=== PATIENT | male | born 1945 | race Caucasian/White ===

== ENCOUNTER 2024-10-09 14:21 | Inpatient (IN) | payer MEDICARE, BC, SELFPAY ==
[2024-10-09] VITALS (23 sets, daily range): BP systolic 98–128; BP diastolic 76–102; PULSE 128–162; RESP 20–33; TEMP 36.4–36.8; O2SAT 94–99; BMI 27.7
--- NOTE | ~2024-10-09 | US_ITS ---
BILATERAL LOWER EXTREMITY VENOUS ULTRASOUND Ordering provider: Torie Salazar PA-C History: . edema . Comparison: None. FINDINGS: RIGHT LOWER EXTREMITY VEINS: --COMMON FEMORAL: Patent and free of thrombus. Normal compressibility, phasic flow and augmentation. --PROXIMAL SUPERFICIAL FEMORAL: Patent and free of thrombus. Normal compressibility, phasic flow and augmentation. --DISTAL SUPERFICIAL FEMORAL: Patent and free of thrombus. Normal compressibility, phasic flow and au gmentation. --POPLITEAL: Patent and free of thrombus. Normal compressibility, phasic flow and augmentation. --POSTERIOR TIBIAL: Patent and free of thrombus. Normal compressibility, phasic flow and augmentation . --Gastrocnemius vein: Thrombosed LEFT LOWER EXTREMITY VEINS: --COMMON FEMORAL: Patent and free of thrombus. Normal compressibility, phasic flow and augmentation. --PROXIMAL SUPERFICIAL FEMORAL: Patent and free of thrombus. Normal compressibility, phasic flow and augmentation. --DISTAL SUPERFICIAL FEMORAL: Patent and free of thrombus. Normal compressibility, phasic flow and au gmentation. --POPLITEAL: Patent and free of thrombus. Normal compressibility, phasic flow and augmentation. --POSTERIOR TIBIAL: Patent and free of thrombus. Normal compressibility, phasic flow and augmentation . IMPRESSION: Thrombosis in the right gastrocnemius vein. Other appearances are unremarkable. Reviewed, dictated and finalized at location A.
--- NOTE | ~2024-10-09 | XR_ITS ---
XR chest 2V Ordering provider: Torie Salazar PA-C History: 79 years Male with . CP . Comparison: None. FINDINGS: MEDIASTINUM: The cardiac silhouette is slightly enlarged. Congestive abundio. LUNGS: No infiltrates, effusions or pneumothorax. OTHER: No free air under the diaphragm. Degenerative changes of the spine. IMPRESSION: No acute cardiopulmonary pathology. Reviewed, dictated and finalized at location A.
--- NOTE | 2024-10-09 14:24 | ECG_ITS ---
Test Date: 2024-10-09 14:28:38 Measurements Intervals [place] Rate: 148 P: 0 DC: 0 QRS: 112 QRSD: 89 T: 86 QT: 272 QTc: 427 Interpretive Statements ATRIAL FIBRILLATION WITH RAPID VENTRICULAR RESPONSE POSSIBLE RIGHT VENTRICULAR HYPERTROPHY [SOME/ALL OF: PROMINENT R IN V1, LATE TRANSITION, RAD, WES, SSS] ABNORMAL ECG No previous ECG available for comparison Electronically Signed On 10-09-2024 16:15:31 CDT by Luigi Birmingham M.D.
--- NOTE | 2024-10-09 14:41 | ED.ARRPALP ---
HPI - Arrhythmia/Palpitations General Chief Complaint: Arrhythmia/Palpitations <Torie Salazar PA-C - Last Filed: 10/09/24 19:41> Stated Complaint: afib <DELMA Lui Last Filed: 10/09/24 19:41> Time Seen by Provider: 10/09/24 14:24 <DELMA Lui Last Filed: 10/09/24 19:41> Source: patient <DELMA Lui Last Filed: 10/09/24 19:41> Mode of arrival: EMS <DELMA Lui Last Filed: 10/09/24 19:41> Limitations: no limitations <DELMA Lui Last Filed: 10/09/24 19:41> History of Present Illness HPI narrative: This is a 79-year-old male that presents to the emergency department for chest pain and shortness of breath. Ongoing over the last 5 days. Reports he recently traveled from [place] where he lives. He has been in the area for about a week. Finally decided to call EMS to be brought in for evaluation today. He was noted to be in Afib with RVR. No previous history of this. <DELMA Lui Last Filed: 10/09/24 19:41> Related Data Home Medications: Home Medications ?Medication ?Instructions ?Recorded ?Confirmed ?Last Taken ?Type aspirin 81 mg chewable tablet 81 mg PO DAILY 10/09/24 10/09/24 Unknown History (Keegan Chewable Low Dose Aspirin) <Torie Salazar PA-C - Last Filed: 10/09/24 19:41> Allergies/Adverse Reactions: Allergies Allergy/AdvReac Type Severity Reaction Status Date / Time No Known Allergies Allergy Verified 10/09/24 14:47 <DELMA Lui Last Filed: 10/09/24 19:41> Review of Systems Review of Systems: CONSTITUTIONAL: Denies fever CARDIOVASCULAR: Reports chest pain, palpitations, and edema. RESPIRATORY: Reports dyspnea. <DELMA Lui Last Filed: 10/09/24 19:41> All systems reviewed & are unremarkable except as noted in HPI and below <Torie Salazar PA-C - Last Filed: 10/09/24 19:41> PMFSH Past Medical History Medical History: Medical History (Updated 10/09/24 @ 19:41 by Torie Salazar PA-C) History of skin cancer <Torie Salazar PA-C - Last Filed: 10/09/24 19:41> Exam Narrative: GENERAL: Elderly, well-nourished, and in no acute distress. HEAD: Normocephalic, atraumatic. EYES: EOMI. ENT: Nares clear, no rhinorrhea or epistaxis. Mucous membranes moist. Oropharynx without tonsillar hypertrophy exudate or other lesions. NECK: Supple. No adenopathy or masses. CHEST: No respiratory distress. Rales in the bilateral lower lobes. No wheezes or rhonchi HEART: Irregularly irregular. No murmur heard. Normal peripheral pulses. EXTREMITIES: Normal range of motion. 1+ pitting edema to the bilateral lower extremities SKIN: Warm, dry, no rash. NEURO: No focal deficits. Alert and oriented x3. PSYCH: Normal mood and affect <Torie Salazar PA-C - Last Filed: 10/09/24 19:41> Course Course Emergency Course: patient updated on his workup and need for admission <Torie Salazar PA-C - Last Filed: 10/09/24 19:41> PALEOLOGIST/PA Physician Supervision This visit was performed by both a physician and an APC. I performed all aspects of the MDM as documented. <Onofre Pitts MD - Last Filed: 10/09/24 19:24> Consultations Consultation #1: Spoke with hospitalist about patient and workup who accepts admission <Torie Salazar PA-C - Last Filed: 10/09/24 19:41> Date: 10/09/24 <Torie Salazar PA-C - Last Filed: 10/09/24 19:41> Consultation #2: Spoke with cardiology who will consult <Torie Salazar PA-C - Last Filed: 10/09/24 19:41> Date: 10/09/24 <Torie Salazar PA-C - Last Filed: 10/09/24 19:41> Vital Signs Vital signs: Vital Signs Pulse Rate 145 H 10/09/24 14:31 Respiratory Rate 32 H 10/09/24 14:31 Blood Pressure 106/87 10/09/24 14:31 Pulse Oximetry 97 10/09/24 14:31 Temperature 97.6 F 10/09/24 19:04 Pulse Rate 140 H 10/09/24 19:04 Respiratory Rate 22 H 10/09/24 19:04 Blood Pressure 128/92 H 10/09/24 19:04 Pulse Oximetry 98 10/09/24 19:04 <Torie Salazar PA-C - Last Filed: 10/09/24 19:41> Vital Signs Pulse Rate 145 H 10/09/24 14:31 Respiratory Rate 32 H 10/09/24 14:31 Blood Pressure 106/87 10/09/24 14:31 Pulse Oximetry 97 10/09/24 14:31 Temperature 97.6 F 10/09/24 19:04 Pulse Rate 140 H 10/09/24 19:04 Respiratory Rate 22 H 10/09/24 19:04 Blood Pressure 128/92 H 10/09/24 19:04 Pulse Oximetry 98 10/09/24 19:04 <Onofre Pitts MD - Last Filed: 10/09/24 19:24> MDM - Arrhythmia/Palpitations MDM Narrative Medical decision making narrative: Patient presents to the ER for chest pain, shortness of breath ongoing over the last 5 days. Noted to be in afib with RVR. No previous history of this. Rates initially in the 170s. He was given a dose of adenosine for possible SVT by EMS. It was then noted that patient was in AFib. They did give him 5 mg of Lopressor. Patient persistently AFib with RVR. Given bolus of diltiazem and started on a drip. Rates now in largely the 130s to 140s. Cbc without leukocytosis. Metabolic panel with normal appearing kidney function. Liver enzymes are mildly elevated. BNP elevated at 4080. Pitting lower extremity edema noted is well as rales in the lungs. Given a dose of Lasix in the ED. Baseline troponin is not elevated. Chest x-ray without acute cardiopulmonary abnormality. Bilateral lower extremity venous Doppler shows DVT in the right gastrocnemius. Patient given a dose of Lovenox. Will be admitted for further management. He refused CTA of the chest to rule out PE as he is very claustrophobic. I had a long discussion with him about this and he continued to adamantly refuse. I have ordered a V/Q scan. Spoke with hospitalist about patient and workup who accepts admission. Spoke with cardiology who will consult <Torie Salazar PA-C - Last Filed: 10/09/24 19:41> Differential Diagnosis Differential diagnosis: Likely artial fibrillation, supraventricular tachycardia and other (PE, DVT, heart failure) <Torie Salazar PA-C - Last Filed: 10/09/24 19:41> Lab Data Attestation: I reviewed the patient's lab results. <Torie Salazar PA-C - Last Filed: 10/09/24 19:41> Result diagrams: 10/09/24 14:39 10/09/24 14:39 <Torie Salazar PA-C - Last Filed: 10/09/24 19:41> Labs: Lab Results 10/09/24 Range/Units 14:39 WBC 10.0 (4.5-10.0) K/mm3 RBC 4.51 L (4.6-6.20) M/mm3 Hgb 12.9 L (14.0-18.0) g/dL Hct 42.5 (42.0-52.0) % MCV 94.2 (80-100) fl MCH 28.6 (26-34) pg MCHC 30.4 L (32-36) g/dl RDW 14.6 H (11.5-14.5) % Plt Count 341 (150-375) k/mm3 MPV 10.2 (7.4-10.4) fl Immature Gran % (Auto) 0.3 (0-0.5) % Neut % (Auto) 65.6 (45.5-73.1) % Lymph % (Auto) 22.0 (18.3-44.2) % [place] % (Auto) 9.7 H (2.6-8.5) % Eos % (Auto) 1.5 (0-4.4) % Baso % (Auto) 0.9 (0.2-1.2) % Lymph # (Auto) 2.19 (0.9-3.2) K/mm3 [place] # (Auto) 1.0 H (0.1-0.6) K/mm3 Eos # (Auto) 0.2 (0-0.3) K/mm3 Baso # (Auto) 0.1 (0.0-0.1) K/mm3 Abs Immat Gran (auto) 0.03 (0.00-0.031) K/mm3 Absolute Neuts (auto) 6.5 (1.3-6.7) K/mm3 Absolute Nucleated RBC 0.000 (0.0-0.012) K/mm3 Nucleated RBC % 0.0 (0.0-0.2) % PT 16.7 H (11.1-14.7) Seconds INR 1.3 APTT 30.7 (22.3-36.8) Seconds D-Dimer 2.44 H (<0.48) ug/mL Sodium 138 (137-145) mmol/L Potassium 4.6 (3.4-5.0) mmol/L Chloride 104 (98-107) mmol/L Carbon Dioxide 24 (22-30) mmol/L Anion Gap 10 (4-12) mmol/L BUN 40 H (9-20) mg/dL Creatinine 1.24 (0.7-1.3) mg/dL Estim Creat Clear Calc 52 ml/min Estimated GFR 57 L (59 - ) Glucose 125 H (65-110) mg/dL Calcium 9.2 (8.4-10.2) mg/dL Total Bilirubin 1.1 (0.2-1.3) mg/dL AST 103 H (17-59) U/L ALT 103 H (6-50) U/L Alkaline Phosphatase 136 H (38-126) U/L Troponin I 0.025 (0.000-0.034) ng/mL NT-Pro-B Natriuret Pep 4080 H (19.9-100) pg/mL Total Protein 7.0 (6.3-8.2) g/dL Albumin 4.0 (3.5-5.1) g/dL Lipase 71 (23-300) U/L <Torie Salazar PA-C - Last Filed: 10/09/24 19:41> Lab Results 10/09/24 Range/Units 14:39 WBC 10.0 (4.5-10.0) K/mm3 RBC 4.51 L (4.6-6.20) M/mm3 Hgb 12.9 L (14.0-18.0) g/dL Hct 42.5 (42.0-52.0) % MCV 94.2 (80-100) fl MCH 28.6 (26-34) pg MCHC 30.4 L (32-36) g/dl RDW 14.6 H (11.5-14.5) % Plt Count 341 (150-375) k/mm3 MPV 10.2 (7.4-10.4) fl Immature Gran % (Auto) 0.3 (0-0.5) % Neut % (Auto) 65.6 (45.5-73.1) % Lymph % (Auto) 22.0 (18.3-44.2) % [place] % (Auto) 9.7 H (2.6-8.5) % Eos % (Auto) 1.5 (0-4.4) % Baso % (Auto) 0.9 (0.2-1.2) % Lymph # (Auto) 2.19 (0.9-3.2) K/mm3 [place] # (Auto) 1.0 H (0.1-0.6) K/mm3 Eos # (Auto) 0.2 (0-0.3) K/mm3 Baso # (Auto) 0.1 (0.0-0.1) K/mm3 Abs Immat Gran (auto) 0.03 (0.00-0.031) K/mm3 Absolute Neuts (auto) 6.5 (1.3-6.7) K/mm3 Absolute Nucleated RBC 0.000 (0.0-0.012) K/mm3 Nucleated RBC % 0.0 (0.0-0.2) % PT 16.7 H (11.1-14.7) Seconds INR 1.3 APTT 30.7 (22.3-36.8) Seconds D-Dimer 2.44 H (<0.48) ug/mL Sodium 138 (137-145) mmol/L Potassium 4.6 (3.4-5.0) mmol/L Chloride 104 (98-107) mmol/L Carbon Dioxide 24 (22-30) mmol/L Anion Gap 10 (4-12) mmol/L BUN 40 H (9-20) mg/dL Creatinine 1.24 (0.7-1.3) mg/dL Estim Creat Clear Calc 52 ml/min Estimated GFR 57 L (59 - ) Glucose 125 H (65-110) mg/dL Calcium 9.2 (8.4-10.2) mg/dL Total Bilirubin 1.1 (0.2-1.3) mg/dL AST 103 H (17-59) U/L ALT 103 H (6-50) U/L Alkaline Phosphatase 136 H (38-126) U/L Troponin I 0.025 (0.000-0.034) ng/mL NT-Pro-B Natriuret Pep 4080 H (19.9-100) pg/mL Total Protein 7.0 (6.3-8.2) g/dL Albumin 4.0 (3.5-5.1) g/dL Lipase 71 (23-300) U/L <Onofre Pitts MD - Last Filed: 10/09/24 19:24> Imaging Data Radiologist's impression: ITS Impressions Chest X-Ray 10/09/24 15:08 IMPRESSION: No acute cardiopulmonary pathology. Venous Doppler Study 10/09/24 15:49 IMPRESSION: Thrombosis in the right gastrocnemius vein. Other appearances are unremarkable. <Torie Salazar PA-C - Last Filed: 10/09/24 19:41> Critical Care Time Critical Care Time Critical Care Time: Yes <Torie Salazar PA-C - Last Filed: 10/09/24 19:41> Total Critical Care Time: 35 <Torie Salazar PA-C - Last Filed: 10/09/24 19:41> Discharge Plan Discharge Clinical Impression: Atrial fibrillation with RVR, Transaminitis Deep vein thrombosis (DVT) of right lower extremity Qualifiers: Affected thrombotic vein of extremity: calf muscle vein Chronicity: acute Qualified Code(s): I82.461 - Acute embolism and thrombosis of right calf muscular vein <DELMA Lui Last Filed: 10/09/24 19:41> Patient Disposition: Still a Patient <DELMA Lui Last Filed: 10/09/24 19:41> Condition: Serious <Torie Salazar PA-C - Last Filed: 10/09/24 19:41>
[2024-10-09 14:47] LABS: Basophils Absolute Auto 0.1 K/mm3 (0.0-0.1); Basophils Percent Auto 0.9 % (0.2-1.2); Eosinophils Absolute Auto 0.2 K/mm3 (0-0.3); Eosinophils Percent Auto 1.5 % (0-4.4); Hematocrit 42.5 % (42.0-52.0); Hemoglobin 12.9 g/dL (14.0-18.0); Immature Granulocyte Absolute 0.03 K/mm3 (0.00-0.031); Immature Granulocyte Percent A 0.3 % (0-0.5); Lymphocytes Absolute Auto 2.19 K/mm3 (0.9-3.2); Mean Corpuscular HGB Conc 30.4 g/dl (32-36); Mean Corpuscular Hemoglobin 28.6 pg (26-34); Mean Corpuscular Volume 94.2 fl (80-100); Mean Platelet Volume 10.2 fl (7.4-10.4); Monocytes Percent Auto 9.7 % (2.6-8.5); Neutrophils Absolute Auto 6.5 K/mm3 (1.3-6.7); Neutrophils Percent Auto 65.6 % (45.5-73.1); Platelet Count Result 341 k/mm3 (150-375); Red Blood Count 4.51 M/mm3 (4.6-6.20); Red Cell Distribution Width 14.6 % (11.5-14.5)
--- OUTSIDE RECORDS SUMMARY | 2024-10-09 14:53 | XMS_ITS | Data Portability ---
Author Organization [place] - [facility], Main Office Address [address] [place] [id number] Care Team Providers Care Taste Tester Name Role Phone WHITLOCK, VINI Primary Care Provider MARIA DE JESUS GREY Metropolitan Editor Assessment No assessment recorded. Plan of Treatment Reminders Order Date Submit Date Provider Last Modified By Organization Details Last Modified Time Details Appointments None recorded. Lab culture, blood - Site #2 2021 [email or web address] [facility] ([place]), [address] [place], [address], 3 12:39:53 cortisol, am, serum 2021 022 DIPAK [facility] ([place]), [address] [place], [address], 2 08:16:51 acth, plasma 2021 022 DIPAK [facility] ([place]), [address] [place], [address], 2 08:18:35 CBC w/ auto diff 2021 022 DIPAK [facility] ([place]), [address] [place], [address], 2 08:16:49 unlisted lab - CMP14+Hb A1C 2021 DIPAK [facility] ([place]), [address] [place], [address], 2 08:16:49 TSH + free T4, serum 2021 022 DIPAK [facility] ([place]), [address] [place], [address], 08:16:48 T3, free, serum or plasma 2021 DIPAK [facility] ([place]), [address] [place], [address], 08:16:50 vitamin D, 25-hydrox y, total, serum 2021 DIPAK [facility] ([place]), [address] [place], [address], 08:16:50 unlisted lab - TSH reflex to t4f 2021 [facility] [address] [place], [address], 14:10:08 vitamin D, 25-hydrox y, total, serum 2021 [facility] ([place]), [address] [place], [address], 14:10:07 CBC w/ auto diff 2021 [facility] [address] [place], [address], 14:10:07 unlisted lab - CMP14+LP+ Hb [id number] 8-P 2021 [place] ([place]), [address] [place], [address], 14:10:06 Referral pulmonolo gist referral 2021 [facility], [address], [address], [place], [address], 14:22:46 cardiolog ist referral 2021 Ferdinand Mcmanus MD, [address], [address], [place], [address], 20:03:38 cardiolog ist referral 2021 [email or web address] Not available 10:48:09 dermatolo gist referral 2021 [email or web address] [facility], [address], [address], [place], [address], 10:48:13 Procedures None recorded. Surgeries None recorded. Imaging electroca rdiogram [address], [address] [place] [address], [address], [place], [address], 11:54:49 LDCT, chest, for lung cancer screening 2021 Not available 11:32:37 Medication Orders trazodone 100 mg tablet 2021 [id number], [address] [place], [address], 14:10:42 alprazola m 0.5 mg tablet 2021 [id number], [address] [place], [address], 14:10:43 Vitamin D3 125 mcg (5,000 unit) tablet 2021 [email or web address] Not available 13:46:35 ibuprofen 800 mg tablet 2021 [facility], [address] [place], [address], 14:10:41 ipratropi um 0.5 mg-albute rol 3 mg (2.5 mg base)/3 mL nebulizat ion soln 2021 [facility], [address] [place], [address], 14:10:42 Lasix 20 mg tablet 2021 [facility], [address] [place], [address], 14:10:41 Xanax 0.25 mg tablet 2021 [facility], [address] [place], [address], 15:56:17 Fioricet 50 mg-300 mg-40 mg capsule 2021 022 [email or web address] [facility], [address] [place], [address], 13:39:35 fluticaso ne 250 mcg-salme terol 50 mcg/dose blistr powdr for inhalatio n 2021 [facility], [address] [place], [address], 13:05:16 cholecalc iferol (vitamin D3) 50 mcg (2,000 unit) tablet 2021 022 [email or web address] Not available 13:46:49 Anoro Ellipta 62.5 mcg-25 mcg/actua tion powder for inhalatio n 2021 [facility], [address] [place] [address], [place], [address], 12:30:52 Anoro Ellipta 62.5 mcg-25 mcg/actua tion powder for inhalatio n 2021 022 [email or web address] [facility]acy #5792, [address] [place], [address], 12:23:05 ProAir HFA 90 mcg/actua tion aerosol inhaler 2021 [facility]792, [address] [place], [address], 23:40:29 Patient TargetsNo targets recorded. Patient Instructions Encounter Date Encounter Id Patient Instructions Last Modified By Organization Details Last Modified Time 09/06/2021 [id number] smoking cessatio n counseling, greater than 3 minutes up to 10 minutes* [email or web address] Not available 09/06/2021 23:58:15 spirometry testing* [email or web address] Not available 09/06/2021 18:48:58 Reason for Referral Metropolitan Editor Referral for Dy spnea on exertion Referring Physician: Family Mariola Le, Encounter Date: 09/06/2021 Bow Maker Machine Tender Referral for S kin lesion Referring Physician: Family Mariola Le, Encounter Date: 09/06/2021 Metropolitan Editor Referral for Dy spnea on exertion Referring Physician: Family Mariola Le, Encounter Date: 09/21/2021 Ski Maker Referral for C hronic obstructive pulmonary disease Referring Physician: Family Mariola Le, Encounter Date: 02/01/2022 Results Created Date Observation Date Name Description Value Unit Range Abnormal Flag Note LastModifiedBy Organization Detail LastModifiedTime 09/07/1909/06/2021 ochoa metry testi ng* FVC 2.23 Not Available [address], [place], [address], 09/06/2021 17:56:48 09/07/19 22 09/06/2021 ochoa metry testi ng* % Predicted FVC 50 Not Available [address], [place], [address], 09/06/2021 17:56:48 09/07/19 22 09/06/2021 ochoa metry testi ng* FEV1 1.46 Not Available [address], [place], [address], 09/06/2021 17:56:48 09/07/19 22 09/06/2021 ochoa metry testi ng* % Predicted FEV1 45 Not Available [address], [place], [address], 09/06/2021 17:56:48 09/07/19 22 09/06/2021 ochoa metry testi ng* FEV1/FVC Ratio 65.5 Not Available [address], [place], [address], 09/06/2021 17:56:48 09/07/19 22 09/06/2021 ochoa metry testi ng* FEF 25-75 0.93 Not Available [address], [place], [address], 09/06/2021 17:56:48 09/07/19 22 09/06/2021 ochoa metry testi ng* % Predicted FEF 25-75 39 Not Available [address], [place], [address], 09/06/2021 17:56:48 09/08/19 22 09/08/2021 CMP14 +LP+H B A1C glucose 95 mg/dL 65-99 Not Available [facility] ([facility]) [address] [place], [address], 09/08/2021 14:10:06 09/08/19 22 09/08/2021 CMP14 +LP+H B A1C hemoglobin A1C 5.5 % 4.8-5. 6 Predi abete s: 5.7 - 6.4 Diabe pascale: >6.4 Glyce katheryn contr ol for adult s with diabe pascale: <7.0 Not Available [facility] ([facility]) [address] [place], [address], 09/08/2021 14:10:06 09/08/19 22 09/08/2021 CMP14 +LP+H B A1C BUN 24 mg/dL 8-27 Not Available [facility] ([facility]) [address] [place], [address], 09/08/2021 14:10:06 09/08/19 22 09/08/2021 CMP14 +LP+H B A1C creatinine 1.00 mg/dL 0.76-1 .27 Not Available [facility] ([facility]) [address] [place], [address], 09/08/2021 14:10:06 09/08/19 22 09/08/2021 CMP14 +LP+H B A1C eGFR 79 mL/mi n/1.7 3 >59 Not Available [facility] ([facility]) [address] [place], [address], 09/08/2021 14:10:06 09/08/19 22 09/08/2021 CMP14 +LP+H B A1C BUN/creatini ne ratio 24 10-24 Not Available [facility] ([facility]) [address] [place], [address], 09/08/2021 14:10:06 09/08/19 22 09/08/2021 CMP14 +LP+H B A1C sodium 145 mmol/ L 134-14 4 above high normal Not Available [facility] ([facility]) [address] [facility], [place], [address], 09/08/2021 14:10:06 09/08/19 22 09/08/2021 CMP14 +LP+H B A1C potassium 4.9 mmol/ L 3.5-5. 2 Not Available [facility] ([facility]) [address] [place], [address], 09/08/2021 14:10:06 09/08/19 22 09/08/2021 CMP14 +LP+H B A1C chloride 104 mmol/ L 96-106 Not Available [facility] ([facility]) [address] [place], [address], 09/08/2021 14:10:06 09/08/19 22 09/08/2021 CMP14 +LP+H B A1C carbon dioxide, total 26 mmol/ L 20-29 Not Available [facility] ([facility]) [address] [place], [address], 09/08/2021 14:10:06 09/08/19 22 09/08/2021 CMP14 +LP+H B A1C calcium 10.2 mg/dL 8.6-10 .2 Not Available [facility] ([facility]) [address] [place], [address], 09/08/2021 14:10:06 09/08/19 22 09/08/2021 CMP14 +LP+H B A1C protein, total 7.5 g/dL 6.0-8. 5 Not Available [facility] ([facility]) [address] [place], [address], 09/08/2021 14:10:06 09/08/19 22 09/08/2021 CMP14 +LP+H B A1C albumin 4.6 g/dL 3.7-4. 7 Not Available [facility] ([facility]) [address] [place], [address], 09/08/2021 14:10:06 09/08/19 22 09/08/2021 CMP14 +LP+H B A1C globulin, total 2.9 g/dL 1.5-4. 5 Not Available [facility] ([facility]) [address] [place], [address], 09/08/2021 14:10:06 09/08/19 22 09/08/2021 CMP14 +LP+H B A1C A/G ratio 1.6 1.2-2. 2 Not Available [facility] ([facility]) [address] [place], [address], 09/08/2021 14:10:06 09/08/19 22 09/08/2021 CMP14 +LP+H B A1C bilirubin, total 0.5 mg/dL 0.0-1. 2 Not Available [facility] ([facility]) [address] [place], [address], 09/08/2021 14:10:06 09/08/19 22 09/08/2021 CMP14 +LP+H B A1C alkaline phosphatase 97 IU/L 44-121 Not Available [facility]) [address] [place], [address], 09/08/2021 14:10:06 09/08/19 22 09/08/2021 CMP14 +LP+H B A1C AST (SGOT) 22 IU/L 0-40 Not Available [facility] ([facility]) [address] [place], [address], 09/08/2021 14:10:06 09/08/19 22 09/08/2021 CMP14 +LP+H B A1C ALT (SGPT) 17 IU/L 0-44 Not Available [facility] ([facility]) [address] [facility], [place], [address], 09/08/2021 14:10:06 09/08/19 22 09/08/2021 CMP14 +LP+H B A1C cholesterol, total 190 mg/dL 100-19 9 Not Available [facility] ([facility]) [address] [facility], [place], [address], 09/08/2021 14:10:06 09/08/19 22 09/08/2021 CMP14 +LP+H B A1C triglyceride s 87 mg/dL 0-149 Not Available [facility]) [address] [facility], [place], [address], 09/08/2021 14:10:06 09/08/19 22 09/08/2021 CMP14 +LP+H B A1C HDL cholesterol 49 mg/dL >39 Not Available [facility]) [address] [facility], [place], [address], 09/08/2021 14:10:06 09/08/19 22 09/08/2021 CMP14 +LP+H B A1C VLDL cholesterol aimee 16 mg/dL 5-40 Not Available [facility]) [address] [facility], [place], [address], 09/08/2021 14:10:06 09/08/19 22 09/08/2021 CMP14 +LP+H B A1C LDL chol calc ([facility]) 125 mg/dL 0-99 above high normal Not Available [facility] ([facility]) [address] [place], [address], 09/08/2021 14:10:06 09/08/19 22 09/08/2021 CMP14 +LP+H B A1C comment: FLY FISHING GUIDE Not Available [facility] ([facility]) [address] [facility], [place], [address], 09/08/2021 14:10:06 09/08/19 22 09/08/2021 CBC WITH DIFFE RENTI AL/PL ATELE T WBC 8.2 x10e3 /uL 3.4-10 .8 Not Available [facility] ([facility]) [address] [facility], [place], [address], 09/08/2021 14:10:07 09/08/19 22 09/08/2021 CBC WITH DIFFE RENTI AL/PL ATELE T RBC 4.84 x10e6 /uL 4.14-5 .80 Not Available [facility] ([facility]) [address] [facility], [place], [address], 09/08/2021 14:10:07 09/08/19 22 09/08/2021 CBC WITH DIFFE RENTI AL/PL ATELE T hemoglobin 14.9 g/dL 13.0-1 7.7 Not Available [facility] ([facility]) [address] [facility], [place], [address], 09/08/2021 14:10:07 09/08/19 22 09/08/2021 CBC WITH DIFFE RENTI AL/PL ATELE T hematocrit 43.7 % 37.5-5 1.0 Not Available [facility] ([facility]) [address] [facility], [place], [address], 09/08/2021 14:10:07 09/08/19 22 09/08/2021 CBC WITH DIFFE RENTI AL/PL ATELE T MCV 90 fL 79-97 Not Available [facility] ([facility]) [address] [place], [address], 09/08/2021 14:10:07 09/08/19 22 09/08/2021 CBC WITH DIFFE RENTI AL/PL ATELE T MCH 30.8 pg 26.6-3 3.0 Not Available [facility] ([facility]) [address] [place], [address], 09/08/2021 14:10:07 09/08/19 09/08/2021 CBC WITH DIFFE RENTI AL/PL ATELE T MCHC 34.1 g/dL 31.5-3 5.7 Not Available [facility] ([facility]) [address] [facility], [place], [address], 09/08/2021 14:10:07 09/08/19 22 09/08/2021 CBC WITH DIFFE RENTI AL/PL ATELE T RDW 14.0 % 11.6-1 5.4 Not Available [facility] ([facility]) [address] [facility], [place], [address], 09/08/2021 14:10:07 09/08/19 22 09/08/2021 CBC WITH DIFFE RENTI AL/PL ATELE T platelets 269 x10e3 /uL 150-45 0 Not Available [facility] ([facility]) [address] [facility], [place], [address], 09/08/2021 14:10:07 09/08/19 22 09/08/2021 CBC WITH DIFFE RENTI AL/PL ATELE T neutrophils 51 % not estab. Not Available [facility] ([facility]) [address] [facility], [place], [address], 09/08/2021 14:10:07 09/08/19 22 09/08/2021 CBC WITH DIFFE RENTI AL/PL ATELE T lymphs 30 % not estab. Not Available [facility] ([facility]) [address] [facility], [place], [address], 09/08/2021 14:10:07 09/08/19 22 09/08/2021 CBC WITH DIFFE RENTI AL/PL ATELE T monocytes 8 % not estab. Not Available [facility] ([facility]) [address] [facility], [place], [address], 09/08/2021 14:10:07 09/08/19 22 09/08/2021 CBC WITH DIFFE RENTI AL/PL ATELE T eos 10 % not estab. Not Available [facility] ([facility]) [address] [facility], [place], [address], 09/08/2021 14:10:07 09/08/19 22 09/08/2021 CBC WITH DIFFE RENTI AL/PL ATELE T basos 1 % not estab. Not Available [facility] ([facility]) [address] [facility], [place], [address], 09/08/2021 14:10:07 09/08/19 22 09/08/2021 CBC WITH DIFFE RENTI AL/PL ATELE T immature cells FLY FISHING GUIDE Not Available [facility] ([facility]) [address] [facility], [place], [address], 09/08/2021 14:10:07 09/08/19 22 09/08/2021 CBC WITH DIFFE RENTI AL/PL ATELE T neutrophils (absolute) 4.2 x10e3 /uL 1.4-7. 0 Not Available [facility] ([facility]) [address] [place], [address], 09/08/2021 14:10:07 09/08/19 22 09/08/2021 CBC WITH DIFFE RENTI AL/PL ATELE T lymphs (absolute) 2.4 x10e3 /uL 0.7-3. 1 Not Available [facility] ([facility]) [address] [place], [address], 09/08/2021 14:10:07 09/08/19 22 09/08/2021 CBC WITH DIFFE RENTI AL/PL ATELE T monocytes(ab solute) 0.7 x10e3 /uL 0.1-0. 9 Not Available [facility] ([facility]) [address] [place], [address], 09/08/2021 14:10:07 09/08/19 22 09/08/2021 CBC WITH DIFFE RENTI AL/PL ATELE T eos (absolute) 0.8 x10e3 /uL 0.0-0. 4 above high normal Not Available [facility] ([facility]) [address] [place], [address], 09/08/2021 14:10:07 09/08/19 22 09/08/2021 CBC WITH DIFFE RENTI AL/PL ATELE T baso (absolute) 0.1 x10e3 /uL 0.0-0. 2 Not Available [facility] ([facility]) [address] [facility], [place], [address], 09/08/2021 14:10:07 09/08/19 22 09/08/2021 CBC WITH DIFFE RENTI AL/PL ATELE T immature granulocytes 0 % not estab. Not Available [facility] ([facility]) [address] [place], [address], 09/08/2021 14:10:07 09/08/19 22 09/08/2021 CBC WITH DIFFE RENTI AL/PL ATELE T immature grans (abs) 0.0 x10e3 /uL 0.0-0. 1 Not Available [facility] ([facility]) [address] [place], [address], 09/08/2021 14:10:07 09/08/19 22 09/08/2021 CBC WITH DIFFE RENTI AL/PL ATELE T NRBC FLY FISHING GUIDE Not Available [facility] ([facility]) [address] [place], [address], 09/08/2021 14:10:07 09/08/19 22 09/08/2021 CBC WITH DIFFE RENTI AL/PL ATELE T hematology comments: FLY FISHING GUIDE Not Available [facility] ([facility]) [address] [place], [address], 09/08/2021 14:10:07 09/08/19 22 09/08/2021 VITAM IN D, 25-HY DROXY vitamin D, 25-hydroxy 28.5 NG/mL 30.0-1 00.0 below low normal Vitam in D defic iency has been defin ed by the Insti tute of Medic ine and an Endoc rine Socie ty pract ice guide line as a level of serum 25-OH vitam in D less than 20 ng/mL (1,2) . The Endoc rine Socie ty went on to furth er defin e vitam in D insuf ficie ncy as a level betwe en 21 and 29 ng/mL (2). 1. IOM (Inst itute of Medic ine). 2010. Dieta ry refer ence intak es for calci um and D. Mckinley yoder [place]: The [facility] . 2. Donte kuo MF, Saurabh holloway [place], Sapna off-F errar i JACQUES, et al. Evalu ation , treat ment, and preve ntion of vitam in D defic iency : an Endoc rine Socie ty clini aimee pract ice guide line. JCEM. 2010; 96(7) :1911 -30. Not Available [facility] ([facility]) [address] [place], [address], 09/08/2021 14:10:07 09/08/19 22 09/08/2021 TSH REFLE X TO T4F TSH 1.900 uIU/m L 0.450- 4.500 Not Available [facility] ([facility]) [address] [place], [address], 09/08/2021 14:10:08 02/02/20 22 02/04/2022 TSH+F REE T4 TSH 1.260 uIU/m L 0.450- 4.500 Not Available [facility] ([facility]) [address] [place], [address], 02/05/2022 08:16:48 02/02/20 22 02/04/2022 TSH+F REE T4 T4,free(dire ct) 1.28 NG/dL 0.82-1 .77 Not Available [facility] ([facility]) [address] [facility] [place], [address], 02/05/2022 08:16:48 02/02/20 22 02/03/2022 CBC WITH DIFFE RENTI AL/PL ATELE T WBC 10.3 x10e3 /uL 3.4-10 .8 Not Available [facility] ([facility]) [address] [facility], [place], [address], 02/05/2022 08:16:49 02/02/20 22 02/03/2022 CBC WITH DIFFE RENTI AL/PL ATELE T RBC 4.27 x10e6 /uL 4.14-5 .80 Not Available [facility] ([facility]) [address] [facility], [place], [address], 02/05/2022 08:16:49 02/02/20 22 02/03/2022 CBC WITH DIFFE RENTI AL/PL ATELE T hemoglobin 12.8 g/dL 13.0-1 7.7 below low normal Not Available [facility] ([facility]) [address] [facility], [place], [address], 02/05/2022 08:16:49 02/02/20 22 02/03/2022 CBC WITH DIFFE RENTI AL/PL ATELE T hematocrit 38.7 % 37.5-5 1.0 Not Available [facility] ([facility]) [address] [place], [address], 02/05/2022 08:16:49 02/02/2002/03/2022 CBC WITH DIFFE RENTI AL/PL ATELE T MCV 91 fL 79-97 Not Available [facility] ([facility]) [address] [place], [address], 02/05/2022 08:16:49 02/02/20 22 02/03/2022 CBC WITH DIFFE RENTI AL/PL ATELE T MCH 30.0 pg 26.6-3 3.0 Not Available [facility] ([facility]) [address] [facility], [place], [address], 02/05/2022 08:16:49 02/02/20 22 02/03/2022 CBC WITH DIFFE RENTI AL/PL ATELE T MCHC 33.1 g/dL 31.5-3 5.7 Not Available [facility] ([facility]) [address] [facility], [place], [address], 02/05/2022 08:16:49 02/02/20 22 02/03/2022 CBC WITH DIFFE RENTI AL/PL ATELE T RDW 14.0 % 11.6-1 5.4 Not Available [facility] ([facility]) [address] [facility], [place], [address], 02/05/2022 08:16:49 02/02/20 22 02/03/2022 CBC WITH DIFFE RENTI AL/PL ATELE T platelets 394 x10e3 /uL 150-45 0 Not Available [facility] ([facility]) [address] [facility], [place], [address], 02/05/2022 08:16:49 02/02/20 22 02/03/2022 CBC WITH DIFFE RENTI AL/PL ATELE T neutrophils 79 % not estab. Not Available [facility] ([facility]) [address] [place], [address], 02/05/2022 08:16:49 02/02/20 22 02/03/2022 CBC WITH DIFFE RENTI AL/PL ATELE T lymphs 10 % not estab. Not Available [facility] ([facility]) [address] [place], [address], 02/05/2022 08:16:49 02/02/20 22 02/03/2022 CBC WITH DIFFE RENTI AL/PL ATELE T monocytes 6 % not estab. Not Available [facility] ([facility]) [address] [facility], [place], [address], 02/05/2022 08:16:49 02/02/20 22 02/03/2022 CBC WITH DIFFE RENTI AL/PL ATELE T eos 4 % not estab. Not Available [facility] ([facility]) [address] [place], [address], 02/05/2022 08:16:49 02/02/20 22 02/03/2022 CBC WITH DIFFE RENTI AL/PL ATELE T basos 1 % not estab. Not Available [facility] ([facility]) [address] [place], [address], 02/05/2022 08:16:49 02/02/20 22 02/03/2022 CBC WITH DIFFE RENTI AL/PL ATELE T immature cells FLY FISHING GUIDE Not Available [facility] ([facility]) [address] [place], [address], 02/05/2022 08:16:49 02/02/20 22 02/03/2022 CBC WITH DIFFE RENTI AL/PL ATELE T neutrophils (absolute) 8.1 x10e3 /uL 1.4-7. 0 above high normal Not Available [facility] ([facility]) [address] [place], [address], 02/05/2022 08:16:49 02/02/20 22 02/03/2022 CBC WITH DIFFE RENTI AL/PL ATELE T lymphs (absolute) 1.1 x10e3 /uL 0.7-3. 1 Not Available [facility] ([facility]) [address] [place], [address], 02/05/2022 08:16:49 02/02/20 22 02/03/2022 CBC WITH DIFFE RENTI AL/PL ATELE T monocytes(ab solute) 0.6 x10e3 /uL 0.1-0. 9 Not Available [facility] ([facility]) [address] [place], [address], 02/05/2022 08:16:49 02/02/20 22 02/03/2022 CBC WITH DIFFE RENTI AL/PL ATELE T eos (absolute) 0.4 x10e3 /uL 0.0-0. 4 Not Available [facility] ([facility]) [address] [facility], [place], [address], 02/05/2022 08:16:49 02/02/20 22 02/03/2022 CBC WITH DIFFE RENTI AL/PL ATELE T baso (absolute) 0.1 x10e3 /uL 0.0-0. 2 Not Available [facility] ([facility]) [address] [facility], [place], [address], 02/05/2022 08:16:49 02/02/20 22 02/03/2022 CBC WITH DIFFE RENTI AL/PL ATELE T immature granulocytes 0 % not estab. Not Available [facility] ([facility]) [address] [facility], [place], [address], 02/05/2022 08:16:49 02/02/20 22 02/03/2022 CBC WITH DIFFE RENTI AL/PL ATELE T immature grans (abs) 0.0 x10e3 /uL 0.0-0. 1 Not Available [facility] ([facility]) [address] [facility], [place], [address], 02/05/2022 08:16:49 02/02/20 22 02/03/2022 CBC WITH DIFFE RENTI AL/PL ATELE T NRBC FLY FISHING GUIDE Not Available [facility] ([facility]) [address] [facility], [place], [address], 02/05/2022 08:16:49 02/02/20 22 02/03/2022 CBC WITH DIFFE RENTI AL/PL ATELE T hematology comments: FLY FISHING GUIDE Not Available [facility] ([facility]) [address] [facility], [place], [address], 02/05/2022 08:16:49 02/02/20 22 02/04/2022 CMP14 +HB A1C glucose 120 mg/dL 65-99 above high normal Not Available [facility] ([facility]) [address] [place], [address], 02/05/2022 08:16:49 02/02/20 22 02/04/2022 CMP14 +HB A1C BUN 25 mg/dL 8-27 Not Available [facility] ([facility]) [address] [place], [address], 02/05/2022 08:16:49 02/02/2002/04/2022 CMP14 +HB A1C creatinine 1.07 mg/dL 0.76-1 .27 Not Available [facility] ([facility]) [address] [place], [address], 02/05/2022 08:16:49 02/02/20 22 02/04/2022 CMP14 +HB A1C eGFR 72 mL/mi n/1.7 3 >59 Not Available [facility] ([facility]) [address] [place], [address], 02/05/2022 08:16:49 02/02/20 22 02/04/2022 CMP14 +HB A1C BUN/creatini ne ratio 23 10-24 Not Available [facility] ([facility]) [address] [place], [address], 02/05/2022 08:16:49 02/02/20 22 02/04/2022 CMP14 +HB A1C sodium 141 mmol/ L 134-14 4 Not Available [facility] ([facility]) [address] [place], [address], 02/05/2022 08:16:49 02/02/20 22 02/04/2022 CMP14 +HB A1C potassium 4.5 mmol/ L 3.5-5. 2 Not Available [facility] ([facility]) [address] [place], [address], 02/05/2022 08:16:49 02/02/20 22 02/04/2022 CMP14 +HB A1C chloride 102 mmol/ L 96-106 Not Available [facility] ([facility]) [address] [facility], [place], [address], 02/05/2022 08:16:49 02/02/2002/04/2022 CMP14 +HB A1C carbon dioxide, total 23 mmol/ L 20-29 Not Available [facility] ([facility]) [address] [facility], [place], [address], 02/05/2022 08:16:49 02/02/2002/04/2022 CMP14 +HB A1C calcium 9.4 mg/dL 8.6-10 .2 Not Available [facility] ([facility]) [address] [facility], [place], [address], 02/05/2022 08:16:49 02/02/2002/04/2022 CMP14 +HB A1C protein, total 6.7 g/dL 6.0-8. 5 Not Available [facility] ([facility]) [address] [facility], [place], [address], 02/05/2022 08:16:49 02/02/2002/04/2022 CMP14 +HB A1C albumin 4.2 g/dL 3.7-4. 7 Not Available [facility] ([facility]) [address] [facility], [place], [address], 02/05/2022 08:16:49 02/02/2002/04/2022 CMP14 +HB A1C globulin, total 2.5 g/dL 1.5-4. 5 Not Available [facility] ([facility]) [address] [facility], [place], [address], 02/05/2022 08:16:49 02/02/2002/04/2022 CMP14 +HB A1C A/G ratio 1.7 1.2-2. 2 Not Available [facility] ([facility]) [address] [place], [address], 02/05/2022 08:16:49 02/02/2002/04/2022 CMP14 +HB A1C bilirubin, total <0.2 mg/dL 0.0-1. 2 Not Available [facility] ([facility]) [address] [place], [address], 02/05/2022 08:16:49 02/02/2002/04/2022 CMP14 +HB A1C alkaline phosphatase 80 IU/L 44-121 Not Available [facility] ([facility]) [address] [place], [address], 02/05/2022 08:16:49 02/02/2002/04/2022 CMP14 +HB A1C AST (SGOT) 19 IU/L 0-40 Not Available [facility] ([facility]) [address] [place], [address], 02/05/2022 08:16:49 02/02/2002/04/2022 CMP14 +HB A1C ALT (SGPT) 19 IU/L 0-44 Not Available [facility] ([facility]) [address] [place], [address], 02/05/2022 08:16:49 02/02/2002/05/2022 CMP14 +HB A1C hemoglobin A1C 6.2 % 4.8-5. 6 above high normal Predi abete s: 5.7 - 6.4 Diabe pascale: >6.4 Glyce katheryn contr ol for adult s with diabe pascale: <7.0 Not Available [facility] ([facility]) [address] [place], [address], 02/05/2022 08:16:49 09/09/20 22 02/04/2022 VITAM IN D, 25-HY DROXY vitamin D, 25-hydroxy 20.0 NG/mL 30.0-1 00.0 below low normal Vitam in D defic iency has been defin ed by the Insti tute of Medic ine and an Endoc rine Socie ty pract ice guide line as a level of serum 25-OH vitam in D less than 20 ng/mL (1,2) . The Endoc rine Socie ty went on to furth er defin e vitam in D insuf ficie ncy as a level betwe en 21 and 29 ng/mL (2). 1. IOM (Inst itute of Medic ine). 2010. Dieta ry refer ence intberana es for calci um and D. Mckinley yoder [place]: The [facility] . 2. Donte kuo MF, Saurabh holloway [place], Sapna off-F satnam i JACQUES, et al. Evalu ation , treat ment, and preve ntion of vitam in D defic iency : an Endoc rine Socie ty clini aimee pract ice guide line. JCEM. 2010; 96(7) :1911 -30. Not Available [facility] ([facility]) [address] [place], [address], 02/05/2022 08:16:50 02/02/20 22 02/04/2022 TRIIO DOTHY ROSENDO E (T3), FREE triiodothyro nine (T3), free 3.1 pg/mL 2.0-4. 4 Not Available [facility] ([facility]) [address] [place], [address], 02/05/2022 08:16:50 02/02/20 22 02/04/2022 CORTI SCOTT - AM cortisol - AM 8.8 ug/dL 6.2-19 .4 Not Available [facility] ([facility]) [address] [place], [address], 02/05/2022 08:16:51 02/02/20 22 02/05/2022 ACTH, PLASM A acth, plasma 4.0 pg/mL 7.2-63 .3 below low normal ACTH refer ence inter magnolia for sampl es colle cted betwe en 7 and 10 AM. Not Available [facility] ([facility]) [address], [place], [address], 02/06/2022 08:18:35 09/07/19 22 09/06/2021 elect rocar diogr am No observ ation record ed. [email or web address] [address], [place], [address], 09/06/2021 18:49:01 09/22/19 22 09/06/2021 elect rocar diogr am No observ ation record ed. [address], [place], [place], [address], 09/21/2021 17:50:31 10/16/19 22 10/15/2021 LDCT, chest , for lung cance r scree windy No observ ation record ed. [email or web address] [facility] [address] [place], [address], 10/18/2021 12:34:13 12/02/19 22 09/06/2021 ochoa metry testi ng* No observ ation record ed. [address], [place], [address], 12/01/2021 15:08:45 04/03/20 22 04/03/2022 US, sonalle x, venou s, lower extre mity, compl ete No observ ation record ed. [email or web address] [facility] [address] [place], [address], 04/03/2022 17:24:28 Result Notes None recorded. Problems Name Problem SNOMED Code Status Onset Date Resolution Date Notes Provider Name and Address Organization Details Recorded Time Chronic obstructi ve pulmonary disease 30955792 Active 2021 CT chest low-dose screening October 15, 2021: Multivess el coronary artery calcifica tions noted. None as it is not thoracic aorta with scattered vascular calcifica tions. Moderate emphysema tous changes upper lobe predomina nt. Multiple scattered areas of pleural and parenchym al scarring most prominent ly in the anterior lung bases. Calcifica tions in the lung apices. Calcified pleural-b ased nodule along anterior right upper lobe. Multiple scattered sub-4 mm pulmonary nodules bilateral ly. Multiple degenerat clifton changes of the visualize d spine. Osseous mineraliz ation mildly diffusely decreased . Lung RADS category 2. Annual screening . Chest x-ray October 30, 2021: Osseous structure s demonstra te no suspiciou s lesions, heart size normal, lungs demonstra te mild bilateral peribronc hial thickenin g which can be associate with bronchiti s. No airspace consolida tion. Stable postop changes at left lung apex. CTA chest with contrast October 30, 2021: No PE, mild centrilob ular emphysema with mild infectiou s or inflammat ory bronchiol itis thickenin g. No acute abdominal or pelvic pathology . CTA chest 02/24/2022 : Moderate atheroscl erotic calcifica tion of the coronary arteries. Mild centrilob ular emphysema . There is some coarsenin g of interstit ium greatest in the lung bases. No focal consolida tion. There is no pleural lesion. Vini Whitlock MD [address], [place], [address], [place] [facility] 2 15:33:04 Skin lesion 44806662 Active 2021 Vini Whitlock MD [address], [place], [address], [place] [facility] 2 17:21:34 Paresthes ia of upper limb 26290098 Active 2021 left arm Vini Whitlock MD [address], [place], [address], [place] [facility] 2 17:23:38 Paresthes ia of right lower limb 740729261781 16870 Active 2021 Vini Whitlock MD [address], [place], [address], [place] [facility] 2 17:23:19 Dyspnea on exertion 19907912 Active 2021 Vini Whitlock MD [address], [place], [address], [place] [facility] 2 17:55:51 Nicotine dependenc e 99482363 Active 2021 Vini Whitlock MD [address], [place], [address] [place] [address], [place] [facility] 2 12:54:13 Vitamin D deficienc y 61249835 Active 2021 Vini Whitlock MD [address], [place], [address] [place] [address], [place] [facility] 2 12:29:59 Benign paroxysma l positiona l vertigo 143204586 Active 2021 Vini Whitlock MD [address], [facility] [place], [address] [place] [address], [place] [facility] 2 12:29:56 Hyperchol esterolem ia 59374259 Active 2021 TC 190, TG 87, HDL 49, LDL 125 per labs 08/2021. ASCVD risk 25.4%. Vini Whitlock MD [address], [place], [address], [place] [facility] 2 13:15:48 Multiple nodules of lung 319858311 Active 2021 CT chest low-dose screening October 15, 2021: Multivess el coronary artery calcifica tions noted. None as it is not thoracic aorta with scattered vascular calcifica tions. Moderate emphysema tous changes upper lobe predomina nt. Multiple scattered areas of pleural and parenchym al scarring most prominent ly in the anterior lung bases. Calcifica tions in the lung apices. Calcified pleural-b ased nodule along anterior right upper lobe. Multiple scattered sub-4 mm pulmonary nodules bilateral ly. Multiple degenerat clifton changes of the visualize d spine. Osseous mineraliz ation mildly diffusely decreased . Lung RADS category 2. Annual screening . Vini Whitlock MD [address], [place], [address], [place] [facility] 2 12:33:45 Calcifica tion of coronary artery 164789041 Active 2021 CT chest low-dose screening October 15, 2021: Multivess el coronary artery calcifica tions noted. None as it is not thoracic aorta with scattered vascular calcifica tions. Moderate emphysema tous changes upper lobe predomina nt. Multiple scattered areas of pleural and parenchym al scarring most prominent ly in the anterior lung bases. Calcifica tions in the lung apices. Calcified pleural-b ased nodule along anterior right upper lobe. Multiple scattered sub-4 mm pulmonary nodules bilateral ly. Multiple degenerat clifton changes of the visualize d spine. Osseous mineraliz ation mildly diffusely decreased . Lung RADS category 2. Annual screening . CTA chest 02/24/2022 : Moderate atheroscl erotic calcifica tion of the coronary arteries. Mild centrilob ular emphysema . There is some coarsenin g of interstit ium greatest in the lung bases. No focal consolida tion. There is no pleural lesion. 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 Vini Whitlock MD [address], [place], [address], [place] [facility] 2 15:33:43 Headache caused by drug 963928593791 104 Active 2021 Vini Whitlock MD [address], [place], [address], [place] [facility] 2 15:33:30 Hypoxemia 920292323 Active 2021 Vini Whitlock MD [address], [place], [address], [place] [facility] 2 15:33:32 Insomnia 357015759 Active 2021 Vini Whitlock MD [address], [place], [address], [place] [facility] 2 15:33:37 Bilateral lower limb edema 485824581 Active 2021 Vini Whitlock MD [address], [place], [address], [place] [facility] 2 15:33:25 Organism isolated in blood by culture 963969817686 4107 Active 2021 Vini Whitlock MD [address], [place], [address], [place] [facility] 2 15:33:27 Adrenal cortical hypofunct ion 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 Active 2021 Vini Whitlock MD [address], [place], [address], [place] [facility] 2 15:33:23 History of atrial fibrillat ion 928360012 Active 2021 during hospitali zation 02/22/2022 at [facility] Vini Whitlock MD [address], [place], [address], [place] [facility] 2 15:07:55 Impaired fasting glycemia 311578315 Active 2021 Vini Whitlock MD [address], [place], [address], [place] [facility] 2 15:33:35 Acute constipat ion 856631130 Active 2021 Vini Whitlock MD [address], [place], [address], [place] [facility] 2 15:33:21 Problem Notes None recorded. Procedures Surgical History Date Name Laterality Status Provider Name and Address Organization Details Recorded Time Appendectomy completed Jacquelin [place] [facility] 09/06/2021 16:20:48 Tonsillectomy/cherelle noids completed Jacquelin Acosta [place] [facility] 09/06/2021 16:21:40 Cataract Surgery completed Jacquelin Acosta [place] [facility] 09/06/2021 16:22:05 excision of segment of lung completed Vini Whitlock MD [address], [place], [address], [place] [facility] 09/06/2021 17:33:01 Imaging Results Imaging Date Name Status LastModified by Organization Details LastModified Time 09/06/2021 electrocardiogram completed [address], [place], [address], 09/06/2021 18:49:01 09/06/2021 electrocardiogram completed [facility] [address], [place], [address], 09/21/2021 17:50:31 10/15/2021 LDCT, chest, for lung cancer screening completed [email or web address] [facility] [address], [place], [address], 10/18/2021 12:34:13 09/06/2021 spirometry testing* completed [address], [place], [address], 12/01/2021 15:08:45 04/03/2022 US, duplex, venous, lower extremity, complete completed [email or web address] [facility] [address], [place], [address], 04/03/2022 17:24:28 Procedure Notes None recorded. Medical Equipment None Reported. Allergies No known drug allergies Medications Name Sig Start Date Stop Date Status Note LastModified by Organization Details LastModified Time prednison e 10 mg tablet TAKE 1 TABLET BY MOUTH TWICE DAILY FOR ONE WEEK THEN 1 ONCE DAILY FOR ONE WEEK THEN 1/2 ONCE DAILY FOR ONE WEEK 03/08 completed Not Available Not Available Not Available ipratropi um 0.5 mg-albute rol 3 mg (2.5 mg base)/3 mL nebulizat ion soln USE 3 ML VIA NEBULIZE R EVERY 6 HOURS 2021 active Not Available Not Available Not Avai lable trazodone 50 mg tablet TAKE 1 TABLET BY MOUTH EVERY NIGHT AT BEDTIME NEEDED FOR 7 DAYS 02/01 completed Not Available Not Available Not Available azithromy goyo 250 mg tablet TAKE 1 TABLETS BY MOUTH ON DAY 1 THEN 1 TABLET DAILY FOR 4 DAYS 02/01 completed Not Available Not Available Not Available ibuprofen 800 mg tablet TAKE 1 TABLET BY MOUTH THREE TIMES A DAY 2022 active Not Available Not Available Not Avai lable lisinopri l 20 mg tablet TAKE 1 TABLET BY MOUTH DAILY 03/08 completed Not Available Not Available Not Available prednison e 20 mg tablet TAKE 1 TABLET BY MOUTH DAILY FOR 14 DAYS active Not Available Not Available No t Available sulfameth oxazole 800 mg-trimet hoprim 160 mg tablet TAKE 1 TABLET BY MOUTH TWICE DAILY FOR 14 DAYS active Not Available Not Available No t Available alprazola m 0.5 mg tablet Take 1 tablet 3 times a day by oral route for 30 days. 2021 active Not Available Not Available Not Avai lable alprazola m 0.25 mg tablet TAKE 1 TABLET BY MOUTH THREE TIMES A DAY FOR 30 DAYS 03/08 completed change in dose Not Available Not Available Not Available trazodone 100 mg tablet TAKE 1 TABLET BY MOUTH EVERY DAY AT BEDTIME active Not Available Not Available No t Available dexametha sone 4 mg tablet TAKE 1 TABLET BY MOUTH TWICE DAILY 02/01 completed Not Available Not Available Not Available metoprolo l tartrate 50 mg tablet TAKE 1 TABLET BY MOUTH TWICE DAILY 03/08 completed Not Available Not Available Not Available furosemid e 20 mg tablet TAKE 1 TABLET BY MOUTH EVERY DAY NEEDED. NEEDS APPT active Not Available Not Available No t Available lorazepam 1 mg tablet TAKE 1 TABLET BY MOUTH EVERY DAY FOR 7 DAYS NEEDED FOR ANXIETY 02/01 completed Not Available Not Available Not Available levofloxa goyo 500 mg tablet 02/01 completed Not Available Not Available Not Available albuterol sulfate HFA 90 mcg/actua tion aerosol inhaler INHALE 2 PUFFS BY MOUTH EVERY 6 HOURS NEEDED FOR SHORTNES S OF BREATH active Not Available Not Available No t Available ipratropi um bromide 0.02 % solution for inhalatio n 02/01 completed Not Available Not Available Not Available Pulmicort Flexhaler 180 mcg/actua tion breath activated INHALE 2 PUFFS BY MOUTH TWICE DAILY 02/01 completed Not Available Not Available Not Available cholecalc iferol (vitamin D3) 50 mcg (2,000 unit) tablet Take 1 tablet by oral route for 30 days. 03/08 completed increase d dose Not Available Not Available Not Available Vitamin D3 125 mcg (5,000 unit) tablet Take 1 tablet every day by oral route for 30 days. 2021 active Not Available Not Available Not Avai labalen butalbita l-acetami nophen-ca ffeine 50 mg-300 mg-40 mg capsule TAKE 1-2 CAPS BY MOUTH EVERY 4 HOURS NEEDED MDD: 6 03/08 completed Not Available Not Available Not Available Vios Aerosol Delivery System USE DIRECTED 03/08 completed Not Available Not Available Not Available Daliresp 500 mcg tablet Take 1 tablet every day by oral route for 30 days. active Not Available Not Available No t Available Anoro Ellipta 62.5 mcg-25 mcg/actua tion powder for inhalatio n INHALE 1 PUFF EVERY DAY BY INHALATI ON ROUTE FOR 90 DAYS. 02/01 completed Not Available Not Available Not Available Daliresp 250 mcg tablet Take 1 tablet every day by oral route for 30 days. active Not Available Not Available No t Available Wixela Inhub 250 mcg-50 mcg/dose powder for inhalatio n USE 1 INHALATI ON BY MOUTH TWICE DAILY, RINSE AFTER USE 2022 active Not Available Not Available Not Avai labalen Trelegy Ellipta 200 mcg-62.5 mcg-25 mcg powder for inhalatio n INHALE 1 PUFF BY MOUTH ONCE DAILY AT THE SAME TIME EACH DAY AND RINSE MOUTH 03/08 completed has not taken in 3 days Not Available Not Available Not Available Vitals Date Recorded Respiratory rate Heart rate Oxygen saturation Oxygen saturation in Arterial blood by Pulse oximetry Body temperature Body height Body mass index (BMI) Body weight Systolic blood pressure Diastolic blood pressure Provider Name and Address Organization Details Last Updated DateTime 2 22 /min 72 /min 94 % 94 % 98.2 [degF] 180.34 cm 27.6 kg/m2 22556.2 9 g 128 mm[Hg] 64 mm[Hg] Jacquelin Acosta [place] [facility] 2 16:34:16 Date Recorded Body height Body mass index (BMI) Provider Name and Address Organization Details Last Updated DateTime 09/21/2021 187.96 cm 25.5 kg/m2 Vini Whitlock MD [address], [place], [address], [place] [facility] 09/21/2021 12:17:35 Date Recorded Body weight Body temperature Oxygen saturation Oxygen saturation in Arterial blood by Pulse oximetry Heart rate Respiratory rate Systolic blood pressure Diastolic blood pressure Provider Name and Address Organization Details Last Updated DateTime 2 03724.1 6 g 97.8 [degF] 97 % 97 % 67 /min 20 /min 128 mm[Hg] 80 mm[Hg] Dena Greco [place] [facility] 2 11:29:07 Date Recorded Body height Body mass index (BMI) Body weight Heart rate Body temperature Oxygen saturation Oxygen saturation in Arterial blood by Pulse oximetry Heart rate Respiratory rate Systolic blood pressure Diastolic blood pressure Provider Name and Address Organization Details Last Updated DateTime 2 187.96 cm 28.2 kg/m2 72164.3 2 g 100 /min 97.6 [degF] 91 % 91 % 100 /min 26 /min 150 mm[Hg] 68 mm[Hg] Edwin Lake [place] [facility] 2 12:49:11 Date Recorded Body height Body mass index (BMI) Body weight Body temperature Oxygen saturation Oxygen saturation in Arterial blood by Pulse oximetry Heart rate Systolic blood pressure Diastolic blood pressure Provider Name and Address Organization Details Last Updated DateTime 2 187.96 cm 28.2 kg/m2 95460.6 g 97.5 [degF] 95 % 95 % 78 /min 140 mm[Hg] 72 mm[Hg] Jacquelin Acosta [place] [facility] 2 11:54:19 Date Recorded Body height Heart rate Oxygen saturation Oxygen saturation in Arterial blood by Pulse oximetry Body mass index (BMI) Body weight Body temperature Systolic blood pressure Diastolic blood pressure Provider Name and Address Organization Details Last Updated DateTime 2 187.96 cm 63 /min 95 % 95 % 28.6 kg/m2 839429. 94 g 97.6 [degF] 138 mm[Hg] 64 mm[Hg] Jacquelin [place] [facility] 2 13:02:58 Social History Question Answer Notes LastModified by Organizat ion Details LastModified Time Tobacco Smoking Status Current Every Day Smoker [place] [facility] 09/06/2021 16:14:50 What Is Your Level Of Caffeine Consumption? Moderate [email or web address] Information not available 09/06/2021 In The 14 Days Before Symptom Onset, Have You Had Close Contact With A Laboratory-confi rmed COVID-19 While That Case Was Ill? No [email or web address] Information not available 09/06/2021 In The 14 Days Before Symptom Onset, Have You Had Close Contact With A Person Who Is Under Investigation For COVID-19 While That Person Was Ill? No [email or web address] Information not available 09/06/2021 Have You Been To An Area Known To Be High Risk For COVID-19? No Information not available 09/06/2021 Cigar Smoking No [email or web address] Information not available 09/06/2021 Does Anyone Insult Or Talk Down To You? Never Information not available 09/06/2021 Does Anyone Physically Hurt You At Home? Never [email or web address] Information not available 09/06/2021 Does Anyone Scream Or Curse At You? Never [email or web address] Information not available 09/06/2021 Does Anyone Threaten/bully You With Harm? Never Information not available 09/06/2021 What Was The Date Of Your Most Recent Tobacco Screening? 09/06/2021 Information not available 09/06/2021 Have You Ever Been Counseled For Unhealthy Alcohol Use? No [email or web address] Information not available 09/06/2021 What Is Your Relationship Status? Other Significant Other [email or web address] Information not available 09/06/2021 Are You Passively Exposed To Smoke? Yes [email or web address] Information not available 09/06/2021 How Much Tobacco Do You Smoke? 0.5 PPD [email or web address] Information not available 09/06/2021 Has Tobacco Cessation Counseling Been Provided? No [email or web address] Information not available 09/06/2021 How Many Years Have You Smoked Tobacco? 55 [email or web address] Information not available 09/06/2021 Sex: Unknown Functional Status Question Answer Note LastModified by Organizat ion Details LastModified Time Do you or have you ever used any other forms of tobacco or nicotine? No [email or web address] Information not available 09/06/2021 What is your level of alcohol consumption? Occasional [email or web address] Information not available 09/06/2021 Are you currently employed? Yes [email or web address] Information not available 09/06/2021 Mental Status None recorded. Family History Relationship Description Onset Age of this Age Resolved Age Notes LastModified by Organization Details LastModified Time Mother Malignant neoplastic disease 90 unsure of etiolo gy [email or web address] Not available 09/06/2021 17:30:41 Notes:Father in a car a ccident when he was younger Medical History Condition Response Asthma Y Erectile Dysfunction (ED) Y Immunizations Vaccine Type Date Status Note Provider Nam e and Address Organization Details Recorded Time COVID-19, mRNA, LNP-S, PF, 30 mcg/0.3 mL dose 1 completed Jacquelin [place] [facility] 09/07/2021 16:05:07 Influenza, high-dose, quadrivalent, PF 8 completed Jacquelin Acosta null, [place] [facility] 09/07/2021 16:06:12 Influenza, high-dose, quadrivalent, PF 9 completed Jacquelin Acosta [place] [facility] 09/07/2021 16:06:36 Influenza, high-dose, quadrivalent, PF 1 completed Jacqu[place] [facility] 09/07/2021 16:06:57 Pneumococcal conjugate PCV 13 8 completed Jacquelin [place], [place] [facility] 09/07/2021 16:07:28 Influenza, split virus, quadrivalent, preservative 2 completed Vini Whitlock MD [address], [place], [address], [place] [facility] 03/08/2022 15:57:16 Past Encounters Encounter ID Performer Location Encounter Start Date Encounter Closed Date Diagnosis/Indication Diagnosis SNOMED-CT Code Diagnosis ICD10 Code Diagnosis Note [id number] Vini Whitlock MD [address] [facility] [address] [place] , [place] [address] 09/06/2021 16:05:17 09/07/2021 11:54:49 Chronic obstructive pulmonary disease 70832978 J44.9 Prior dx of COPD, now more symptomati c. Abnormal in office ochoa- moderate COPD, possibly severe, recommend Anoro, if still has sx at next appt, may need Trelegy. Add rescue inhaler prn. Discussed imaging- CXR vs CT chest. Recommend CT chest. Labs. Will hold Pulm referral for now. Dyspnea on exertion 6084 5006 R06.09 Likely secondary to COPD; EKG normal. Add labs, Cardiology referral, he can discuss more cardiac testing w/speciali st. Paresthesi a of upper limb 76538434 R20.2 Only occurs with coughing episodes. See above. Paresthesi a of right lower limb [id number] 7191674 R20.2 Only the past month, does not have risk factors for meralgia parestheti ca, monitor. Pt was just mentioning . Skin lesion 40450888 L98 .9 recommend Dermatolog y referral. Nicotine dependence 5629 4008 F17.200 Discussed options for medication s w/patient such as Nicotine patches, Zyban, Chantix. Also, discussed how to use and side effects. Patient {{is agreeable is not agreeable* }} to start medication s.Patient was encouraged to stop smoking. [id number] Vini Whitlock MD [address] [place] [address] 09/07/2021 11:03:13 09/15/2021 06:21:39 [id number] Vini Whitlock MD [address] [place] [address] 09/21/2021 11:21:15 09/29/2021 06:21:28 Chronic obstructive pulmonary disease [id number] J44.9 Prior dx of COPD, now more symptomati c. Abnormal in office spirometry - moderate COPD, possibly severe, recommend Anoro, if still has sx at next appt, may need Trelegy. Add rescue inhaler prn. I explained again the need for QD meds for improved symptoms. See HPI as I called pharmacy etc. Pt was advised to wait to see if Manisha processes script- if cost issue or not covered, can try to speak to Manisha @ [facility]. He plans to get the CT chest. He was provided the approval documentat ion. Pt advised to f/u in OCTOBER. Dyspnea on exertion 6084 5006 R06.09 Likely secondary to COPD; EKG normal. Adjusted Cardiology referral per request to Dr Francisca Mcmanus. He can discuss more cardiac testing w/speciali st. Paresthesi a of upper limb [id number] R20.2 Only occurs with coughing episodes. See above. Benign par oxysmal positional vertigo [id number] H81.13 Advised if sx continue, can refer to Vestibular therapy. Vitamin D deficiency 347 64232 E55.9 Advised pt he can take D3 2000 IU qd. Hypercholesterolemia 136 08652 E78.00 ASCVD risk {{ >7.5%#} }. ASCVD risk elevated at 25.4%. Discussed recommenda tions and evidence based guidelines for ASCVD risk. Encourage healthy lifestyle. Patient {{agreed to statin therapy de clined statin therapy even after discussion of elevated ASCVD risk (goal <7.5%)*}}. Discussed a healthier lifestyle with patient. [id number] Vini Whitlock MD [address] [facility] [address] [place] [address] 02/01/2022 11:38:20 02/09/2022 06:27:58 Chronic obstructive pulmonary disease [id number] J44.9 Prior dx of COPD, now more symptomati c. Prior Abnormal in office spirometry - moderate COPD, possibly severe.Hos pitalized in October 2021: imaging: Chest x-ray October 30, 2021: Osseous structures demonstrat e no suspicious lesions, heart size normal, lungs demonstrat e mild bilateral peribronch ial thickening which can be associate with bronchitis . No airspace consolidat ion. Stable postop changes at left lung apex.CTA chest with contrast October 30, 2021: No PE, mild centrilobu lar emphysema with mild infectious or inflammato ry bronchioli tis thickening . No acute abdominal or pelvic pathology. Trelegy too costly- > wants to go back to Advair.In order to still get anticholin ergic meds, recommend q6 hrs or TID use of the DUONEBS.Pt agreeable. Agree with finishing last 4 days of steroids- his symptoms appear to be related to steroid effects.Re commend labs. WBC and glucose may be abnormal secondary to steroids. I will get cortisol and ACTH, if low, this is likely related to the adrenal suppressio n however hopefully this will improve once steroids are no longer being used. Patient wants to see a different pulmonolog ist, added referral.F /U no later than 1 month. Dyspnea on exertion 6084 5006 R06.09 Likely secondary to COPD; EKG normal. Reprinted Cardiology referral per request to Dr Francisca Mcmanus. He can discuss more cardiac testing w/speciali st. Vitamin D deficiency 347 45480 E55.9 Previously advised him to take D3 2000 IU qd.Labs now. Hypercholesterolemia 136 95256 E78.00 ASCVD risk {{ >7.5%#} }. ASCVD risk elevated at 25.4%. Discussed recommenda tions and evidence based guidelines for ASCVD risk. Encourage healthy lifestyle. Patient {{agreed to statin therapy de clined statin therapy even after discussion of elevated ASCVD risk (goal <7.5%)*}}. Discussed a healthier lifestyle with patient. Patient does not want medication s, does not want lipid panel drawn. Long-term current use of steroid [id number] Z79.52 As above, check labs.May have Cushingoid buffalo hump. Mood disor abby caused by drug [id number] F19.94 This is likely secondary to the steroid effects, start low-dose BZD Xanax. Do not recommend Lorazepam as I do not want affect his respiratio ns.[employer] [facility] reviewed in chart. This medication is medically necessary. CS agreement signed. Headache c aused by drug [id number] 31717 G44.40 This is likely secondary to the steroid effects, recommend Fioricet as needed. Max daily dose is 6 capsules/d ay.Did advise caution as he will also be on the Xanax, discussed sedating effects and fall risk. Also advised not to drink alcohol while on Fioricet and Xanax.[employer] [facility] reviewed in chart. This medication is medically necessary. 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 Ibuprofen 800 mg as needed- advised no more than 1 tab at a time. Vitamin D deficiency 347 23301 E55.9 Previously advised him to take D3 2000 IU qd.Now recommend D3 5000 IU qd. Dyspnea on exertion 6084 5006 R06.09 Likely secondary to COPD; EKG normal. Reprinted Cardiology referral per request to Dr Francisca Mcmanus. He can discuss more cardiac testing w/speciali st. Chronic ob structive pulmonary disease 10205310 J44.9 Prior dx of COPD, now more symptomati c. Prior Abnormal in office spirometry - moderate COPD, possibly severe.Hos pitalized in October 2021: imaging: Chest x-ray October 30, 2021: Osseous structures demonstrat e no suspicious lesions, heart size normal, lungs demonstrat e mild bilateral peribronch ial thickening which can be associate with bronchitis . No airspace consolidat ion. Stable postop changes at left lung apex.CTA chest with contrast October 30, 2021: No PE, mild centrilobu lar emphysema with mild infectious or inflammato ry bronchioli tis thickening . No acute abdominal or pelvic pathology. Trelegy too costly- > [facility] to go back to [facility].In order to still get anticholin ergic meds, recommend DUONEBS. Agree with finishing last few days of steroids. Patient is staying with Dr Mendoza for now. CTA chest 02/24/2022: Moderate atheroscle rotic calcificat ion of the coronary arteries. Mild centrilobu lar emphysema. There is some coarsening of interstiti um greatest in the lung bases. No focal consolidat ion. There is no pleural lesion. Renewed Duonebs. F/U 1 month. 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 This medication is medically necessary. Insomnia 170603040 G47.0 1 Increase Trazodone. Bilateral lower limb edema 373876574 R60.0 Lasix 20 mg qd if needed. Organism i solated in blood by culture [id number] 264023 R78.81 Rothia Mucilagino sa at hospital (/2 blood cx).Recomm end f/u cultures 3 weeks. Adrenal co rtical hypofunction 828438183 E27.40 Recommend labs after done w/steroids .This is likely related to the adrenal suppressio n; hopefully this will improve once steroids are no longer being used. Impaired f asting glycemia 344255077 R73.01 May be abnormal secondary to steroids. Acute constipation 37364 9006 K59.00 Recommend MOM. History of atrial fibrillation 124130659 Z86.79 Patient does not want to take the Eliquis, metoprolol , and the ADALGISA inhibitor. Will DC meds on chart. Health Concerns Section Related Observation LastModified by Organization Detai ls LastModified Time None Recorded Concern Status LastModified by Organization Details LastModified Time None Recorded Advance Directives Directive None Recorded Payers Insurance Date Sequence Insurance Name Policy Number Policy Shelby Covered Member ID Shelby Member ID Guarantor Name 12/04/[address] MEDICARE EPO (MOVED-BILLE D) [id number] 3 Nhan L Schartung [id number] Nhan L Schartung 04/04/2021 [place] [address] - [place] MEDICARE EPO (MOVED-BILLE D) Nhan L Schartung UNKNOWN Nhan L Schartung 03/14/2021 [place] [address]- TPA (MOVED-BILLE D) Nhan L Schartung UNKNOWN Nhan L Schartung 12/19/[address] [employer] MEDICARE EPO (MOVED-[place] D) [id number] Nhan L Schartung [id number] Nhan L Schartung 12/20/2022 [place] [address] - [employer] MEDICARE EPO (MOVED-[place]IL[place] D) [id number] 3 Nhan L Schartung [id number] Nhan L Schartung 12/20/2022 [place] [address] - [employer] MEDICARE EPO (MOVED-BILLE D) [id number] 3 Hnan L Schartung [id number] Nhan L Schartung Notes Date Note Type Note Provider Name and Address Organization Details Recorded Time 09/07/19 22 text/htm l NEW PT: Pt is here asking for 3 referrals, derm, cardio, and pulm. Pt does not take meds much as they may have side effects. Pt has not been doctor in yrs, he fired him, as he would not quit smoking. He has been dx w/COPD (asthma years ago) about 5 yrs ago. + smoker for years.He state he wants a full workup- imaging, labs, xrays, and stress test. In regards to smoking, he would like to quit but when he does he gains weight and then feels miserable. He had been 225 lbs and now 198 lbs but he is smoking. He knows it is a bad habit but he has not tried anything except quitting on own. h/o PTX X 2 (one on each side)50 + yrs, partial removal b/l. He was told it was related to physical exertion. He states he used to be on Symbicort but was in nebulizer?,he tried someone's inhaler, ? name, ? albuterol. In addition, his significant other notice coughing fits at night, takes his breath away. It affects his sleep; it sounds like wet phlegm; thick white, tinge of green at times. Mainly, every night he coughs. Ptcan get SOB, walking certain distances, often enough that he feels needs to address it now. The reason he wants to see Cardiology it that he can get tingling down L arm after coughing fit. No CP/pressure.States had asthma as a young person; no asthma attacks in years. He does not go to doctor often- he states the first time he understands there is a wait but afterwards, he waits 15- 20 min tops and then he will leave. He says my time is no less valuable than theirs. He is asking about Dr Noble, Dr Grover- [facility] [place] ? Another thing he mentions is numbness right thigh, with walking only. Started just over this past month. He has lost weight, does not cross legs. Wears a belt. He has no back pain, no rash. He is not as concerned about this area as much as the L arm numbness. He also has skin lesions; some on L forehead, torso.No itching. Some areas discolored and raised. Vini Whitlock MD [address], [place], [address], [place] - [facility] 09/07/2021 00:07:05 09/22/19 22 text/htm l Patient is here for f/u labs and meds. He was seen 09/06/2021. He has COPD history, + smoker. He has been also dx w/asthma years ago about 5 yrs ago.h/o PTX X 2 (one on each side)50 + yrs, partial removal b/l. He was told it was related to physical exertion.In addition, his significant other notice coughing fits at night, takes his breath away. It affects his sleep; it sounds like wet phlegm; thick white, tinge of green at times. Mainly, every night he coughs. Ptcan get SOB, walking certain distances, often enough that he feels needs to address it now. The reason he wants to see Cardiology it that he can get tingling down L arm after coughing fit. No CP/pressure.States had asthma as a young person; no asthma attacks in years. After last visit, discussed trial of Anoro for maintenance to decrease symptoms for COPD. Med sent as 90 d supply- then next day changed to 30 d to [facility].Today, pt states using meds as needed but he is referring to only the rescue inhaler called Albuterol. He has not used the Anoro. So, while in room w/pt, I called [facility], spoke to pharmacist. They did not rerun the script till I was on phone w/them. The 30 d Rx is $405 (90d was $1500). Pharmacist stated to do PA to have it cost less but that would be a tier exception not a PA. PSS here in office called [facility] and they stated to send meds via [employer]. All the inhalers are on the formulary but all capped which per the yeager on the formulary means Brand. In regards to his Cardiology referral- pt asled for Dr Grover; appts not available till end of November. He is asking for another referral for someone that is close. He also mentions he has felt lightheaded which was yesterday a.m. and afternoon. He was not coughing at time. He felt he had to lay down. It did not last long. He denies nausea/vomiting.+ spinningIt occurred when standing first time after he had eaten breakfast. Then the 2nd time it happened when he was trying put together a BBQ. In addition, labs were ordered last visit: results below1. CMP Na 145, rest normal2. a1c 5.53. TC 190, TG 87, HDL 49, LDL 125.4. CBC- minimal increase eosinophils. h/o asthma.5. vit D 28.56. TSH normal Low dose CT for lung cancer screening was ordered- > CT chest auth done and given to pt today. He has skin appt 09/25/2021. Vini Whitlock MD [address], [place], [address], [place] [facility] 09/21/2021 14:27:29 02/02/20 22 text/htm l Hospital records reviewed from [place]. These are dated from October 2021.At that time he presented to the emergency room due to worsening shortness of breath for about a week. He was also having chest pressure radiating to left arm. Apparently he had seen grinding wheel inspector recently. In the ED CTA chest was done and had no PE finding. Mild centrilobular emphysema with bronchiolitis thickening.Labs October 30:Sodium potassium normalCreatinine 0.91 with GFR 88Glucose 103Calcium normalLFTs normalCK in range at 107Troponin high-sensitivity normalBNP 116INR 1.1WBC normal at 7.6Hemoglobin 15.7 hematocrit 47.7Platelet 253Chest x-ray October 30, 2021: Osseous structures demonstrate no suspicious lesions, heart size normal, lungs demonstrate mild bilateral peribronchial thickening which can be associate with bronchitis. No airspace consolidation. Stable postop changes at left lung apex.CTA chest with contrast October 30, 2021: No PE, mild centrilobular emphysema with mild infectious or inflammatory bronchiolitis thickening. No acute abdominal or pelvic pathology.Diagnosis at the time was acute hypoxic respiratory failure, acute on chronic COPD exacerbationMild centrilobular emphysema with bronchiolitis thickening on CTChest x-rayPulmonary consulted.Given IV steroids and breathing treatments and started on empiric azithromycin. Stress test was ordered as well as echo.Discharge meds:Ventolin HFA as neededDecadron 10 mg p.o. twice daily for 3 days dispense 6 tabs.Pulmicort inhaler 180 MCG's 2 inhalations twice dailyNebulizer machineAlbuterol sulfate via neb 5 mg/mLIpratropium and bromide (Atrovent 0.02%) neb every 6 hours Patient states no heart tests at [place] were done. He did NOT see Cardiology either yet. He had appt but then was in hospital. He went to [facility] November 03 and and then end of October- these 2 visits he stayed overnight. He had alot of testing done and gave a breathing regimen. He was sent home with O2 and then he did not need it for 5 weeks and breathing was better- so he returned it to a respiratory company.He states he saw Dr Marlo Mendoza in NOVEMBER 2021 (Pul) and went back again approximately 2 weeks later, early December 2021. At the first visit he was given Prednisone orally, 2 pills of 20mg QD for a few weeks. He was also given Trelegy.Patient tapered off due to headaches and leg swelling. He felt he was having complications and made appt with doctor- when he went, the doctor was not present in office.He wrote down his questions and he did not get a call until 8 days later.Also, Dr Mendoza did labs and had told patient something was abnormal and was planning to repeat again.He is still having headaches even now- he is doing a half dose of 20mg= 10mg, each time he does a taper for 5-7 days.He has no difference in JACQUES even tapering the steroidshas tried Tyl and Ibuprofen, and ETOH.PAIN AT BACK OF NECK, like it is swollen, and pressure; pain worsens but does not radiate anywhere.He feels from the pain that his eye would pop out. He was using Pulmicort before the Trelegy.He was on Advair before the Trelegy as well. No fall, no syncope, no LOC. He feels anxious and tense also and wants to sleep. Trouble sleeping. Doing neb BID rather than TID. He has pulse ox at home.He was doing well before and lately high 80s- early 90s %. Trelegy is too costly-cannot afford. Viewed [place] [employer], 2 rx for Lorazepam. Labs 12/13/2021:WBC 12.7negative for TB, Coccidio, and AspergillusIgE level high [id number] Vini Whitlock MD [address], [place], [address], [place] [facility] 02/01/2022 14:56:18 03/08/20 22 text/htm l Patient is here for hospital follow-up. [facility] medical record.This is a discharge summary dated 02/26/2022.Admitting diagnosis was community-acquired pneumonia and COPD.He was admitted February 22.Discharge diagnosis:acute on chronic respiratory failure with hypoxiaCommunity-acquired pneumoniaCOPD exacerbationFormer smokerHypertensionOpacity of lung on imaging studyTachypneaDischarge medications:Albuterol HFA inhaler 2 puffs every 6 hours as needed shortness of breathXanax 0.25 mg by mouth every 8 hours as neededEliquis 5 mg twice dailyTrelegy dailyAlbuterol /ipratropium nebulizer 3 mL nebulized every 6 hoursLisinopril 20 mg dailyMetoprolol 50 mg twice dailyPrednisone 20 daily for 14 daysBactrim DS twice daily for 14 daysTrazodone 50 mg nightly for 7 daysDischarge labs:Patient was acidotic on 02/23 per ABG.BNP 16 normalTroponin normalSodium normal on 2Potassium 4.7 on 02/26/2022Glucose 169 on 2Calcium normal at 9.3 on 02/26/2022LFTs normalPhosphorus normalMagnesium normal at 2.1GFR 65% normalPT and PTT normal as wellCBCWBC 12.73 on February 26, 2022Hemoglobin 12.8 with hematocrit 39.1 on same date as well, normalPlatelet normalMicrobiology:MRSA by PCR not detectedUrine Legionella antigen negativeFlu a and B are negativeRSV not detectedAdenovirus not detectedMultiple coronavirus types tested not detectedRhinovirus, enterovirus, Metapneumo virus not detectedInfluenza A and B are negativeParainfluenza 4 types are not detectedBordetella pertussis negativeBordetella parapertussis negativeChlamydia pneumonia not detectedStrep pneumoniae urine antigen negativeMycoplasma pneumoniae not detectedSARS not detectedThyroid functions are abnormalTSH 0.275 February 23, 2022, lowFree T3 2.99 and free T4 1.16 which are normalPage 6 of discharge summary indicates hospital courseAtrial fibrillation rapid ventricular response, resolvedCOPD exacerbation, resolvedProductive cough, resolvedHypoxia, resolvedBilateral lower extremity edema, resolvedHospital course:Patient came to hospital on 2 L of oxygen on February 22 for shortness of breath. He was found to have COPD exacerbation began treatment with steroids and inhaled nebulizers. Sometime after patient was admitted he was noted to have atrial fib with rapid ventricular response. Heparin drip was started, patient was started on rate control medications with ineffective pushes of Lopressor therefore amiodarone was started. Patient was continued on heparin drip and amiodarone and transitioned to oral Eliquis. Oral amiodarone was not continued and patient was continued on rate controlled occasions with beta-blockers given the significant and severe COPD history and significant pulmonary toxicity potential with amiodarone. He was continued on steroids and titrated down on his dose of Solu-Medrol through hospital stay. Patient was able to resume his home 2 L oxygen and had no further episodes of atrial fibrillation with rapid ventricular response.Home regimen of meds for COPD includes Trelegy at 200 daily, nebulizers as needed and albuterol as needed. Recommended follow-up with his beta tester Dr. Marlo Mendoza.Patient was evaluated for pneumonia, had clear lungs with no PCR positivity for infectious disease and antibiotics were not continued throughout hospital stay. Given patient's severe exacerbation after weaning off prednisone patient will be discharged with a 14-day course of prednisone and instructed to follow-up with pulmonary. Given patient's lack of chronic bronchitic etiology to his COPD, Roflumilast was not started in the hospital. But this can be determined as an outpatient. Again patient is follow with primary and pulmonary. There is mention that he had 2 of 2 blood cultures for Rothia Mucilaginosa so he was started on antibiotics and given a prescription at discharge. this bacteria blood cx is on Summary of episode note [facility] dated 02/26/2022flu vaccine given 02/24/2022 [id number] score 3 and HAS-BLED score is 2 Microbiology ReportsTEST: Culture Blood ARDCOLLECTED DATE/TIME: 02/24/22 1:30 PMPRELIMINARY REPORT: No growth at 48 hours.TEST: Culture Blood ARDCOLLECTED DATE/TIME: 02/24/22 1:30 PMPRELIMINARY REPORT: No growth at 48 hours.TEST: Culture Blood ARDCOLLECTED DATE/TIME: 02/22/22 8:59 PMFINAL REPORT: Rothia mucilaginosaRoutine susceptibilities are not performed on this isolate.TEST: Culture Blood ARDCOLLECTED DATE/TIME: 02/22/22 8:59 PMAMENDED REPORT: Rothia mucilaginosaRoutine susceptibilities are not performed on this isolate.This is routine oral britney, and sensitivities are not performed. This bug is routinely sensitive to vancomycin and TMP-SMX. If repeat blood cultures are negative can likely transition to oral TMP-SMX with 2-week course and close follow-up. 02/22/22 US LE Venous Duplex BilateralMOAB REGIONAL [facility] RADIOLOGYULTRASOUND BILATERAL LOWER EXTREMITY VENOUS DUPLEXHISTORY: Bilateral lower extremity swelling.COMPARISON: None.TECHNIQUE: Real-time ultrasound examination with permanent image recording was performed andreviewed on a PACS workstation. Examination includes elam scale, compression elam scale, color andduplex Doppler evaluation of each vessel. Each vessel was evaluated for compressibility, color andspectral Doppler flow, respiratory phasicity, and augmentation.FINDINGS:The right common femoral, femoral, popliteal, proximal greater saphenous, and proximal calf veinsare compressible with normal color doppler flow. Normal respiratory phasicity and augmentation arepresent. There is no deep venous thrombosis. There is no superficial thrombophlebitis.The left common femoral, femoral, popliteal, proximal greater saphenous, and proximal calf veins arecompressible with normal color doppler flow. Normal respiratory phasicity and augmentation arepresent. There is no deep venous thrombosis. There is no superficial thrombophlebitis.IMPRESSION:U nremarkable bilateral lower extremity venous duplex exam.Dictated By: YESSICA MART MD Final 02/24/22 1:[address] Angio Chest w/Contrst Incl w/o ImagsVHM RADIOLOGYEXAM: CT angiogram of the chest with contrast.CONTRAST: IV contrast was givenFINDINGS: Normal contrast opacification of the pulmonary arteries. No pulmonary embolism.No mediastinal mass, no enlarged mediastinal, hilar or axillary lymph nodes. No pericardial lesion.Moderate atherosclerotic calcification of the coronary arteries.Mild centrilobular emphysema. There is some coarsening of interstitium greatest in the lung bases.No focal consolidation. There is no pleural lesion.IMPRESSION: No pulmonary embolus. 2. Mild emphysematous changes and some nonspecific interstitialcoarsening likely related to fibrosis.Dictated By: BUSHRA FREDERICK DO Final 02/22/22 2:41 PM XR Chest 1 ViewVHM RADIOLOGYXR CHEST 1 VIEWHISTORY: Shortness of Breath (SOB),TECHNIQUE: Chest, 1 view.COMPARISON: December 03, 2021FINDINGS:Hyperinflation of the lungs. Coarse interstitial opacities noted throughout both lungs. Surgicalsutures identified of the bilateral apical region. Cardiac size mildly enlarged. Pulmonaryvascularity is upper limits of normal. Right and left costophrenic angles are sharp. No pneumothoraxidentified.IMPRES LIT:Hyperinflation of the lungs. Coarse interstitial opacity seen throughout both lungs. No acutefindings.Dictated By: FREDIS DU MD Final TODAY:He currently has abdominal discomfort, more left sidedHe did get water pills from someone- LasixFeels constipatedBloated, feels hardLast BM is 3-4 daysBeen trying to drink coffee, candy, chocolate, saladsPassing gas He is only sleeping 45 minutes at a timeHe cannot brain slow downHe was using Xanax 0.25 mg TID- could not tell much difference He will finish rest of steroids and Abx He had to go back to Dr Eva Mendoza, had to go in 10 daysthey saw him in hospitalThey gave him Daliresp 500 mg qd, help keep out of hospitalstart at 250mg for 4 weeks. He will start today He will go back to [facility] Will stick with Dr Mendoza for now soonest appt is Apr [facility] at [facility] For sleep:Discussed TrazodoneHe does not want to take EliquisHe does not want to take Beta Cherie and ACEI Asking for Ibuprofen 600mg or 800mg- he will use more than 1 tab even though he knows he should not do so.He will use for HAs One of doctors found the bacteria in the bloodPatient also had gotten Lasix as well- helped as well Labs 02/01/2022:ACTH 4TFTs normalHB 12.8CMP w/glu 120, a1c 6.2Vit D 20 (prior 28.5)AM cortisol 8.8 Vini Whitlock MD [address], [place], [id number], [place] [facility] 03/08/2022 15:57:42
--- OUTSIDE RECORDS SUMMARY | 2024-10-09 14:53 | XMS_ITS ---
Author Name Interface, [id number] lity [place] [address] [facility] [place] [address] Care Team Providers Care Data Power Consultant Name Role Phone Sharad Blood Unavailable Allergies and Adverse Reactions Medication/Group Name Reaction Severity Date No known allergies Plan Date Type Value 09/02/2023 APPOINTMENT NEW PT CONSULT 6 0 MIN Reason for Visit NEW PT CONSULT 60 MIN Encounters Date Name 09/02/2023 Basal cell carcinoma of skin (disorder) 09/02/2023 Basal cell carcinoma of skin (disorder) Problems Diagnosis Status Date of Diagnosi s Basal cell carcinoma of skin (disorder) Active 07/17/2023 Basal cell carcinoma of skin (disorder) Active 07/17/2023 Vital Signs Date Type Value 09/02/2023 Heart Beat 88.00 09/02/2023 Oxygen Saturation 95.00 09/02/2023 Weight 205.00 09/02/2023 Pain Scale 0.00 09/02/2023 Intravascular Systolic 134 09/02/2023 Intravascular Diastolic 97
--- OUTSIDE RECORDS SUMMARY | 2024-10-09 14:53 | XMS_ITS | CCD ---
Author Name Interface, [id number] lity Address [place] [address] [facility] [place] [address] Care Team Providers Care Broke Beater Operator Name Role Phone Interface, [id number] Unavailable Unavail able Allergies and Adverse Reactions Medication/Group Name Reaction Severity Date No known allergies Reason for Visit NEW PT CONSULT 60 MIN Encounters Date Name 09/02/2023 Basal cell carcinoma of skin (disorder) Social History Date Name Value Sex Male
[2024-10-09] MEDS: dilTIAZem 100 MG/100 ML 100 MG/100 ML BAG IV CONT (14:55)
[2024-10-09] MEDS: dilTIAZem HCl INJ 25 MG/5 ML VIAL 10 MG IV PUSH ×2 (14:55→17:26)
[2024-10-09 14:56] LABS: Alanine Aminotransferase 103 U/L (6-50); Alkaline Phosphatase 136 U/L (38-126); Anion Gap 10 mmol/L (4-12); Aspartate Amino Transferase 103 U/L (17-59); Bilirubin,Total 1.1 mg/dL (0.2-1.3); Blood Urea Nitrogen 40 mg/dL (9-20); Calcium 9.2 mg/dL (8.4-10.2); Carbon Dioxide 24 mmol/L (22-30); Chloride 104 mmol/L (98-107); Estimated CRCL calculation 52 ml/min; Estimated Glomerular Filt Rate 57; Glucose 125 mg/dL (65-110); Lipase 71 U/L (23-300); Potassium 4.6 mmol/L (3.4-5.0); Sodium 138 mmol/L (137-145)
[2024-10-09 14:59] LABS: INR 1.3; Partial Thromboplastin Time 30.7 Seconds (22.3-36.8); Prothrombin Time 16.7 Seconds (11.1-14.7)
[2024-10-09 15:03] LABS: D Dimer 2.44 ug/mL (<0.48)
[2024-10-09 15:07] LABS: NT Pro B Type Natriuretic Pept 4080 pg/mL (19.9-100); Troponin I 0.025 ng/mL (0.000-0.034)
[2024-10-09] MEDS: FUROSEMIDE INJ 40 MG/4 ML VIAL 20 MG IV PUSH (17:26)
[2024-10-09] MEDS: ENOXAPARIN 100 MG/ML SYRINGE SUB-Q (17:27)
--- NOTE | 2024-10-09 19:12 | P.HP_ITS ---
H&P: HPI History of Present Illness Date/Time: 10/09/24 19:12 Chief Complaint: Leg swelling Narrative: 79-year-old male who does not go to the doctor presents to the hospital with leg swelling and pain. Patient states that about 10 days ago he drove from [place] to [place]. He states that it proximally taken [address], and on Friday and Friday he drove about 500 miles each day. He states on of this week that he noticed that his right leg kept increasing in size and was red. He also complains of difficulties breathing, and intermittent slurred speech. He states that due to the symptoms his appetite is decreased he has mostly been eating popsicles over the last 3 or 4 days. He also states that he is only able to sleep for an hour at a time. And states that he has gotten very little sleep over the last 2 days. Patient denies nausea vomiting, diarrhea fever chills. In the ED was found to have a hemoglobin of 12.9, D-dimer of 2.22, BUN of 40, creatinine of 1.24, GFR 57, glucose of 125, AST of 103 ALT of 103 alkaline phos of 136, proBNP of 4080, troponin of 0.025 and 0.024. Venous Doppler shows Thrombosis in the right gastrocnemius vein. Review of Systems Review of Systems: 12 systems were reviewed and are negativ e except for as per HPI. [facility] Past Medical History Medical History (Updated 10/09/24 @ 20:06 by Karoline Lezama, DIRECTOR [employer]) History of skin cancer Meds Home Medications and Allergies Home Medications ?Medication ?Instructions ?Recorded ?Confirmed ?Type aspirin 81 mg chewable tablet 81 mg PO DAILY 10/09/24 10/09/24 History (Keegan Chewable Low Dose Aspirin) Allergies Allergy/AdvReac Type Severity Reaction Status Date / Time No Known Allergies Allergy Verified 10/09/24 14:47 Vital Signs Vital Signs - 24 hr 10/09/24 14:31 10/09/24 14:34 10/09/24 14:45 Temperature Pulse Rate 145 H 158 H 152 H Respiratory Rate 32 H 22 H 24 H Blood Pressure 106/87 106/87 118/102 H Pulse Oximetry 97 96 94 10/09/24 14:46 10/09/24 14:55 10/09/24 15:10 Temperature 98.2 F Pulse Rate 152 H 140 H Respiratory Rate 21 H Blood Pressure 118/102 H Pulse Oximetry 95 10/09/24 15:43 10/09/24 15:43 10/09/24 16:01 Temperature Pulse Rate 134 H 150 H 149 H Respiratory Rate 26 H 27 H 33 H Blood Pressure 104/76 104/76 101/80 Pulse Oximetry 94 95 95 10/09/24 16:30 10/09/24 16:46 10/09/24 17:01 Temperature Pulse Rate 146 H 157 H 157 H Respiratory Rate 30 H 28 H 25 H Blood Pressure 117/85 125/76 98/83 L Pulse Oximetry 95 10/09/24 17:15 10/09/24 17:32 10/09/24 17:46 Temperature Pulse Rate 154 H 157 H 162 H Respiratory Rate 29 H 28 H 20 Blood Pressure 119/87 110/84 120/90 Pulse Oximetry 94 97 10/09/24 17:51 10/09/24 18:37 10/09/24 18:39 Temperature Pulse Rate 162 H 140 H 147 H Respiratory Rate 24 H Blood Pressure 120/90 99/77 L Pulse Oximetry 99 10/09/24 19:04 Temperature 97.6 F Pulse Rate 140 H Respiratory Rate 22 H Blood Pressure 128/92 H Pulse Oximetry 98 Exam Narrative: General: well appearing, appears stated age. HEENT: normocephalic, atraumatic. Mucous membranes moist. EOMI, PERRLA, bilateral sclera anicteric, no conjunctival injection. Neck supple without JVD, lymphadenopathy, or bruit. Respiratory: clear to ascultation bilaterally. No rales/rhonic/wheezes. Cardiovascular: Regular rate and rhythm, normal S1-S2 upon ascultation. No murmurs, rubs, or clicks. PMI is nondisplaced, capillary refill less than 3 second. Abdomen: Soft, round, no pulsatile masses, nondistended and nontender. No rebound, no guarding. No CVA tenderness, no hepatosplenomegaly. Bowel sounds present to all four quadrants. No high pitch or tinkling sounds, resonant to percussion. Extremities: No cyanosis, clubbing, or edema present. Pulses are palpable 2/2. Bilateral lower extremity edema. Neuro: Alert and orientated x 4. PERRLA. Cranial nerves 2-12 intact without focal deficit. Skin: Warm, dry, and intact, without rash, erythema, or lesion. Psych: pleasant, cooperative, normal speech, normal affect, no hallucinations, no dysarthia H&P: Results Labs Labs: Short CBC 10/09/24 Range/Units 14:39 WBC 10.0 (4.5-10.0) K/mm3 Hgb 12.9 L (14.0-18.0) g/dL Hct 42.5 (42.0-52.0) % Plt Count 341 (150-375) k/mm3 BMP 10/09/24 14:39 Sodium 138 Potassium 4.6 Chloride 104 Carbon Dioxide 24 BUN 40 H Creatinine 1.24 Glucose 125 H Calcium 9.2 Cardiac Enzymes 10/09/24 Range/Units 14:39 Troponin I 0.025 (0.000-0.034) ng/mL Liver Function 10/09/24 Range/Units 14:39 Total Bilirubin 1.1 (0.2-1.3) mg/dL AST 103 H (17-59) U/L ALT 103 H (6-50) U/L Alkaline Phosphatase 136 H (38-126) U/L Albumin 4.0 (3.5-5.1) g/dL Assessment and Plan Assessment and plan (1) Atrial fibrillation with RVR: Code(s): I48.91 - Unspecified atrial fibrillation Status: Acute Assessment and Plan: Heart rate 150-175 Diltiazem drip IV Lasix to help reduce strain on heart (2) Elevated brain natriuretic peptide (BNP) level: Code(s): R79.89 - Other specified abnormal findings of blood chemistry Status: Acute Assessment and Plan: Cardiology consulted pending recommendations IV Lasix Aggressively diuresing Echocardiogram pending Lipid panel (3) Deep vein thrombosis (DVT) of right lower extremity: Qualifiers: Affected thrombotic vein of extremity: calf muscle vein Chronicity: acute Qualified Code(s): I82.461 - Acute embolism and thrombosis of right calf muscular vein Code(s): I82.401 - Acute embolism and thrombosis of unspecified deep veins of right lower extremity Status: Acute Assessment and Plan: Therapeutic Lovenox No SCDs (4) Shortness of breath: Code(s): R06.02 - Shortness of breath Status: Acute Assessment and Plan: Likely nose combination of CHF and PE D-dimer elevated, atrial fibrillation with RVR, right lower extremity DVT Patient states that he is claustrophobic, and last time he got a CT he vomited and aspirated Patient being diuresed and given therapeutic Lovenox V/Q scan when patient is stable (5) Slurred speech: Code(s): R47.81 - Slurred speech Status: Acute Assessment and Plan: Possible TIA Patient states that he is claustrophobic, and last time he got a CT he vomited and aspirated Neurology consulted (6) Anemia: Code(s): D64.9 - Anemia, unspecified Status: Acute Assessment and Plan: No signs of acute bleeding Could be delusional, patient is being aggressively diuresed CBC the morning Anemia workup (7) Headache: Code(s): R51.9 - Headache, unspecified Status: Acute Assessment and Plan: Tylenol (8) Transaminitis: Code(s): R74.01 - Elevation of levels of liver transaminase levels Status: Acute Assessment and Plan: CMP in the morning (9) Hyperglycemia: Code(s): R73.9 - Hyperglycemia, unspecified Status: Acute Assessment and Plan: Hemoglobin A1c in a.m. Quality VTE Prophylaxis VTE prophylaxis: pharmacologic ordered If No VTE Prophylaxis Answer both mechanical and pharmacologic: Reason no mechanical VTE proph: medical contraindication Hospitalist MIPS Advance Care Plan I have confirmed that the patient's Advanced Care Plan is present, code status is documented, or surrogate decision maker is listed in patient medical record.: Yes Medication Reconciliation I have utilized all available resources to obtain, update and review the patients current medications (includes all prescriptions, OTC, herbals, cannabis, and nutritional supplements).: Yes
[2024-10-09 19:30] LABS: Troponin I 0.024 ng/mL (0.000-0.034)
--- NOTE | 2024-10-09 19:31 | ECG_ITS ---
Test Date: 2024-10-09 19:41:23 Measurements Intervals [place] Rate: 157 P: 0 SC: 0 QRS: 101 QRSD: 90 T: 87 QT: 269 QTc: 435 Interpretive Statements ATRIAL FIBRILLATION WITH RAPID VENTRICULAR RESPONSE POSSIBLE RIGHT VENTRICULAR HYPERTROPHY [SOME/ALL OF: PROMINENT R IN V1, LATE TRANSITION, RAD, WES, SSS] NONSPECIFIC T-WAVE ABNORMALITY ABNORMAL ECG Compared to ECG 10/09/2024 14:28:38 T-wave abnormality now present Electronically Signed On 10-10-2024 08:07:53 CDT by Luigi Birmingham M.D.
[2024-10-09] MEDS: ACETAMINOPHEN 325 MG TABLET 650 MG PO (20:19)
[2024-10-09] MEDS: FUROSEMIDE INJ 40 MG/4 ML VIAL IV PUSH (20:20)
--- NOTE | 2024-10-09 22:00 | ECG_ITS ---
Test Date: 2024-10-09 22:16:24 Measurements Intervals [place] Rate: 129 P: 0 NV: 0 QRS: 101 QRSD: 90 T: 124 QT: 277 QTc: 406 Interpretive Statements ATRIAL FIBRILLATION WITH RAPID VENTRICULAR RESPONSE POSSIBLE RIGHT VENTRICULAR HYPERTROPHY [SOME/ALL OF: PROMINENT R IN V1, LATE TRANSITION, RAD, WES, SSS] NONSPECIFIC T-WAVE ABNORMALITY ABNORMAL ECG Compared to ECG 10/09/2024 19:41:23 No significant changes Electronically Signed On 10-10-2024 08:08:43 CDT by Luigi Birmingham M.D.
[2024-10-09 22:09] LABS: Basophils Absolute Auto 0.1 K/mm3 (0.0-0.1); Basophils Percent Auto 0.8 % (0.2-1.2); Eosinophils Absolute Auto 0.1 K/mm3 (0-0.3); Eosinophils Percent Auto 1.5 % (0-4.4); Hematocrit 42.9 % (42.0-52.0); Hemoglobin 12.9 g/dL (14.0-18.0); Immature Granulocyte Absolute 0.02 K/mm3 (0.00-0.031); Immature Granulocyte Percent A 0.2 % (0-0.5); Lymphocytes Absolute Auto 1.83 K/mm3 (0.9-3.2); Lymphocytes Percent Auto 19.2 % (18.3-44.2); Mean Corpuscular HGB Conc 30.1 g/dl (32-36); Mean Corpuscular Hemoglobin 28.4 pg (26-34); Mean Corpuscular Volume 94.5 fl (80-100); Mean Platelet Volume 10.1 fl (7.4-10.4); Monocytes Percent Auto 10.1 % (2.6-8.5); Neutrophils Absolute Auto 6.5 K/mm3 (1.3-6.7); Neutrophils Percent Auto 68.2 % (45.5-73.1); Platelet Count Result 336 k/mm3 (150-375); Red Blood Count 4.54 M/mm3 (4.6-6.20); Red Cell Distribution Width 14.8 % (11.5-14.5); White Blood Count 9.5 K/mm3 (4.5-10.0)
[2024-10-09 22:19] LABS: Alanine Aminotransferase 114 U/L (6-50); Alkaline Phosphatase 124 U/L (38-126); Anion Gap 9 mmol/L (4-12); Aspartate Amino Transferase 115 U/L (17-59); Bilirubin,Total 1.2 mg/dL (0.2-1.3); Blood Urea Nitrogen 42 mg/dL (9-20); Calcium 9.4 mg/dL (8.4-10.2); Carbon Dioxide 28 mmol/L (22-30); Chloride 103 mmol/L (98-107); Estimated CRCL calculation 49 ml/min; Estimated Glomerular Filt Rate 51; Glucose 134 mg/dL (65-110); Potassium 4.3 mmol/L (3.4-5.0); Sodium 140 mmol/L (137-145)
[2024-10-09 22:31] LABS: Troponin I 0.025 ng/mL (0.000-0.034)
[2024-10-09] MEDS: dilTIAZem 100 MG/100 ML 100 MG/100 ML BAG 15 MG IV CONT (23:40)
[2024-10-10] VITALS (29 sets, daily range): BP systolic 97–135; BP diastolic 57–93; PULSE 99–159; RESP 14–24; TEMP 36.5–36.7; O2SAT 94–100
[2024-10-10 00:11] LABS: Add Urine Microscopic? NO; Appearance Urine Clear (Clear); Bilirubin Urine Negative (Negative); Blood Urine Negative (Negative); Color Urine Yellow (Yellow); Glucose Urine UA Negative (Negative); Ketones Urine Negative (Negative); Leukocyte Esterase Ur Negative LEU/UL (Negative); Nitrate Urine Negative (Negative); Protein Urine Negative (Negative); Specific Grav Ur 1.007 (1.001-1.035); Urobilinogen Urine 0.2 mg/dL (<2.0)
[2024-10-10] MEDS: METOPROLOL TARTRATE INJ 5 MG/5 ML VIAL IV PUSH ×2 (02:54→17:36)
[2024-10-10] MEDS: hydrOXYzine HCL 25 MG TABLET PO ×2 (02:54→20:03)
[2024-10-10] MEDS: ENOXAPARIN 100 MG/ML SYRINGE SUB-Q ×2 (04:29→17:36)
[2024-10-10] MEDS: dilTIAZem 100 MG/100 ML 100 MG/100 ML BAG 15 MG IV CONT ×2 (04:31→11:22)
[2024-10-10 04:47] LABS: INR 1.4; Prothrombin Time 17.2 Seconds (11.1-14.7)
[2024-10-10 04:48] LABS: Partial Thromboplastin Time 40.9 Seconds (22.3-36.8)
[2024-10-10 05:09] LABS: Hemoglobin A1C 5.9 % (<5.7)
[2024-10-10 05:10] LABS: Cholesterol 102 mg/dL (0-200); HDL Direct 21 mg/dL; Magnesium 1.9 mg/dL (1.6-2.3); Phosphorus 3.8 mg/dL (2.5-4.5); Triglycerides 79 mg/dL (<150)
[2024-10-10 05:20] LABS: LDL Cholesterol Direct 57 mg/dL
[2024-10-10] MEDS: ACETAMINOPHEN 325 MG TABLET 650 MG PO (08:50)
[2024-10-10] MEDS: ASPIRIN 81 MG CHEWABLE TABLET PO (08:50)
--- NOTE | 2024-10-10 12:11 | P.PNIM_ITS ---
Progress Note: A&P Assessment and Plan (1) Atrial fibrillation with RVR: Code(s): I48.91 - Unspecified atrial fibrillation Status: Acute Assessment and Plan: new afib with RVR Diltiazem drip Lovenox IV Lasix to help reduce strain on heart echo pending cardiology team on board (2) Elevated brain natriuretic peptide (BNP) level: Code(s): R79.89 - Other specified abnormal findings of blood chemistry Status: Acute Assessment and Plan: Cardiology consulted pending recommendations IV Lasix Aggressively diuresing Echocardiogram pending Lipid panel (3) Deep vein thrombosis (DVT) of right lower extremity: Qualifiers: Affected thrombotic vein of extremity: calf muscle vein Chronicity: acute Qualified Code(s): I82.461 - Acute embolism and thrombosis of right calf muscular vein Code(s): I82.401 - Acute embolism and thrombosis of unspecified deep veins of right lower extremity Status: Acute Assessment and Plan: Therapeutic Lovenox No SCDs (4) Shortness of breath: Code(s): R06.02 - Shortness of breath Status: Acute Assessment and Plan: combination of CHF and PE D-dimer elevated, atrial fibrillation with RVR, right lower extremity DVT Patient states that he is claustrophobic, and last time he got a CT he vomited and aspirated Patient being diuresed and given therapeutic Lovenox V/Q scan when patient is stable (5) Slurred speech: Code(s): R47.81 - Slurred speech Status: Acute Assessment and Plan: ?TIA Patient states that he is claustrophobic, and last time he got a CT he vomited and aspirated Neurology consulted (6) Anemia: Code(s): D64.9 - Anemia, unspecified Status: Acute Assessment and Plan: No signs of acute bleeding Could be delusional, patient is being aggressively diuresed CBC the morning Anemia workup (7) Headache: Code(s): R51.9 - Headache, unspecified Status: Acute Assessment and Plan: Tylenol (8) Transaminitis: Code(s): R74.01 - Elevation of levels of liver transaminase levels Status: Acute Assessment and Plan: CMP in the morning (9) Hyperglycemia: Code(s): R73.9 - Hyperglycemia, unspecified Status: Acute Assessment and Plan: pre diabetes Hemoglobin A1c 5.9 Subjective Date/time seen: 10/10/24 12:11 Interval history: per HPi: 79-year-old male who does not go to the doctor presents to the hospital with leg swelling and pain. Patient states that about 10 days ago he drove from [place] to [place]. He states that it proximally taken [address], and on Friday and Friday he drove about 500 miles each day. He states on Friday of this week that he noticed that his right leg kept increasing in size and was red. He also complains of difficulties breathing, and intermittent slurred speech. He states that due to the symptoms his appetite is decreased he has mostly been eating popsicles over the last 3 or 4 days. He also states that he is only able to sleep for an hour at a time. And states that he has gotten very little sleep over the last 2 days. Patient denies nausea vomiting, diarrhea fever chills. In the ED was found to have a hemoglobin of 12.9, D-dimer of 2.22, BUN of 40, creatinine of 1.24, GFR 57, glucose of 125, AST of 103 ALT of 103 alkaline phos of 136, proBNP of 4080, troponin of 0.025 and 0.024. Venous Doppler shows Thrombosis in the right gastrocnemius vein. 10/10/24 patient was seen and examined at bedside. he is complaining of leg swelling and SOb which has been getting worse for past 5 days. denies abd pain, nausea a or vomiting. R leg positive for DVT. Vq scan pending. On Cardizem drip and Lovenox. cardiology team on board. Review of Systems Review of Systems: 12 systems were reviewed and are negativ e except for as per HPI. Exam Narrative: General: well appearing, appears stated age. HEENT: normocephalic, atraumatic. Mucous membranes moist. EOMI, PERRLA, bilateral sclera anicteric, no conjunctival injection. Neck supple without JVD, lymphadenopathy, or bruit. Respiratory: clear to ascultation bilaterally. No rales/rhonic/wheezes. Cardiovascular: irRegular rate and rhythm, normal S1-S2 upon ascultation. No murmurs, rubs, or clicks. PMI is nondisplaced, capillary refill less than 3 s econd. Abdomen: Soft, round, no pulsatile masses, nondistended and nontender. No rebound, no guarding. No CVA tenderness, no hepatosplenomegaly. Bowel sounds present to all four quadrants. No high pitch or tinkling sounds, resonant to percussion. Extremities: No cyanosis, clubbing, or edema present. Pulses are palpable 2/2. Bilateral lower extremity edema. Neuro: Alert and orientated x 4. PERRLA. Cranial nerves 2-12 intact without focal deficit. Skin: Warm, dry, and intact, without rash, erythema, or lesion. Psych: pleasant, cooperative, normal speech, normal affect, no hallucinations, no dysarthia Objective Data Vital Signs Vital Signs: Vital Signs - 24 hr 10/09/24 14:31 10/09/24 14:34 10/09/24 14:45 Temperature Pulse Rate 145 H 158 H 152 H Respiratory Rate 32 H 22 H 24 H Blood Pressure 106/87 106/87 118/102 H Pulse Oximetry 97 96 94 Oxygen Delivery Oxygen Flow Rate 10/09/24 14:46 10/09/24 14:55 10/09/24 15:10 Temperature 98.2 F Pulse Rate 152 H 140 H Respiratory Rate 21 H Blood Pressure 118/102 H Pulse Oximetry 95 Oxygen Delivery Oxygen Flow Rate 10/09/24 15:43 10/09/24 15:43 10/09/24 16:01 Temperature Pulse Rate 134 H 150 H 149 H Respiratory Rate 26 H 27 H 33 H Blood Pressure 104/76 104/76 101/80 Pulse Oximetry 94 95 95 Oxygen Delivery Oxygen Flow Rate 10/09/24 16:30 10/09/24 16:46 10/09/24 17:01 Temperature Pulse Rate 146 H 157 H 157 H Respiratory Rate 30 H 28 H 25 H Blood Pressure 117/85 125/76 98/83 L Pulse Oximetry 95 Oxygen Delivery Oxygen Flow Rate 10/09/24 17:15 10/09/24 17:32 10/09/24 17:46 Temperature Pulse Rate 154 H 157 H 162 H Respiratory Rate 29 H 28 H 20 Blood Pressure 119/87 110/84 120/90 Pulse Oximetry 94 97 Oxygen Delivery Oxygen Flow Rate 10/09/24 17:51 10/09/24 18:37 10/09/24 18:39 Temperature Pulse Rate 162 H 140 H 147 H Respiratory Rate 24 H Blood Pressure 120/90 99/77 L Pulse Oximetry 99 Oxygen Delivery Oxygen Flow Rate 10/09/24 19:00 10/09/24 19:04 10/09/24 20:00 Temperature 97.6 F Pulse Rate 140 H 140 H Respiratory Rate 22 H Blood Pressure 128/92 H 128/92 H Pulse Oximetry 98 Oxygen Delivery Room Air Oxygen Flow Rate 10/09/24 20:00 10/09/24 21:00 10/09/24 22:00 Temperature Pulse Rate 143 H 147 H 149 H Respiratory Rate Blood Pressure 113/86 Pulse Oximetry Oxygen Delivery Oxygen Flow Rate 10/09/24 22:00 10/09/24 23:40 10/09/24 23:40 Temperature 97.6 F Pulse Rate 152 H 128 H 128 H Respiratory Rate 24 H Blood Pressure 126/83 126/83 Pulse Oximetry 98 Oxygen Delivery Oxygen Flow Rate 10/10/24 00:00 10/10/24 00:00 10/10/24 02:00 Temperature Pulse Rate 143 H 147 H Respiratory Rate Blood Pressure 111/82 Pulse Oximetry Oxygen Delivery Room Air Oxygen Flow Rate 10/10/24 02:00 10/10/24 02:54 10/10/24 04:00 Temperature Pulse Rate 147 H 152 H 99 Respiratory Rate Blood Pressure Pulse Oximetry Oxygen Delivery Oxygen Flow Rate 10/10/24 04:20 10/10/24 04:20 10/10/24 04:30 Temperature 97.7 F Pulse Rate 111 H 109 H Respiratory Rate 22 H Blood Pressure 112/81 112/81 Pulse Oximetry 100 100 Oxygen Delivery Nasal Cannula Oxygen Flow Rate 2 10/10/24 04:31 10/10/24 06:00 10/10/24 06:30 Temperature Pulse Rate 109 H 125 H 126 H Respiratory Rate Blood Pressure 112/81 110/67 Pulse Oximetry Oxygen Delivery Oxygen Flow Rate 10/10/24 08:00 10/10/24 08:00 10/10/24 08:00 Temperature 98.0 F Pulse Rate 144 H 144 H Respiratory Rate 16 Blood Pressure 101/73 101/73 Pulse Oximetry 95 95 Oxygen Delivery Room Air Oxygen Flow Rate 10/10/24 08:00 10/10/24 10:00 10/10/24 10:00 Temperature 98.1 F Pulse Rate 128 H 124 H 149 H Respiratory Rate 24 H Blood Pressure 109/60 Pulse Oximetry 94 Oxygen Delivery Oxygen Flow Rate 10/10/24 10:00 10/10/24 11:12 10/10/24 11:22 Temperature Pulse Rate 124 H 141 H 141 H Respiratory Rate Blood Pressure 109/60 109/60 109/60 Pulse Oximetry Oxygen Delivery Oxygen Flow Rate 10/10/24 11:59 Temperature 98 F Pulse Rate 159 H Respiratory Rate 20 Blood Pressure 135/84 Pulse Oximetry 98 Oxygen Delivery Oxygen Flow Rate Intake/Output Intake/Output: Intake & Output 10/07/24 10/08/24 10/09/24 10/10/24 23:59 23:59 23:59 23:59 Intake Total 65.3 1312.5 Output Total 1999 Balance 65.3 -687.5 Meds/Results Medications: Active Medications Generic Name Dose Route Start Last Admin Trade Name Freq PRN Reason Stop Dose Admin Acetaminophen 650 mg 10/09/24 19:19 10/10/24 08:50 Acetaminophen 325 Mg Tablet PO 650 mg Q4H PRN Administration Headache Aspirin 81 mg 10/10/24 09:00 10/10/24 08:50 Aspirin 81 Mg Chewable Tablet PO 81 mg DAILY GIANFRANCO Administration Enoxaparin Sodium 100 mg 10/10/24 05:00 10/10/24 04:29 Enoxaparin 100 Mg/Ml Syringe SUB-Q 100 mg Q12H GIANFRANCO Administration Hydroxyzine HCl 25 mg 10/10/24 00:06 10/10/24 02:54 Hydroxyzine Hcl 25 Mg Tablet PO 25 mg Q6H PRN Administration Anxiety Diltiazem HCl 100 mg in 100 mls @ 15 mls/hr 10/09/24 23:30 10/10/24 11:22 Cardizem 100 Mg/100 Ml IV CONT 15 mg/hr .Q6H40M GIANFRANCO 15 mls/hr Administration 15 MG/HR Perflutren Lipid Microsphere 0 ml 10/09/24 19:39 Perflutren Lipid Microspheres 1.5 Ml Vial Diluted To 10 Ml Total Volume IV PUSH 10/12/24 19:39 ONCE PRN adequate visualization Protocol Radiology Results: ITS Impressions Chest X-Ray 10/09/24 15:08 IMPRESSION: No acute cardiopulmonary pathology. Venous Doppler Study 10/09/24 15:49 IMPRESSION: Thrombosis in the right gastrocnemius vein. Other appearances are unremarkable. Labs Labs: Laboratory Results - last 24 hr 10/09/24 10/09/24 10/09/24 14:39 19:02 21:53 WBC 10.0 9.5 RBC 4.51 L 4.54 L Hgb 12.9 L 12.9 L Hct 42.5 42.9 MCV 94.2 94.5 MCH 28.6 28.4 MCHC 30.4 L 30.1 L RDW 14.6 H 14.8 H Plt Count 341 336 MPV 10.2 10.1 Immature Gran % (Auto) 0.3 0.2 Neut % (Auto) 65.6 68.2 Lymph % (Auto) 22.0 19.2 [place] % (Auto) 9.7 H 10.1 H Eos % (Auto) 1.5 1.5 Baso % (Auto) 0.9 0.8 Lymph # (Auto) 2.19 1.83 [place] # (Auto) 1.0 H 1.0 H Eos # (Auto) 0.2 0.1 Baso # (Auto) 0.1 0.1 Abs Immat Gran (auto) 0.03 0.02 Absolute Neuts (auto) 6.5 6.5 Absolute Nucleated RBC 0.000 0.000 Nucleated RBC % 0.0 0.0 PT 16.7 H INR 1.3 APTT 30.7 D-Dimer 2.44 H Sodium 138 140 Potassium 4.6 4.3 Chloride 104 103 Carbon Dioxide 24 28 Anion Gap 10 9 BUN 40 H 42 H Creatinine 1.24 1.35 H Estim Creat Clear Calc 52 49 Estimated GFR 57 L 51 L Glucose 125 H 134 H Hemoglobin A1c Calcium 9.2 9.4 Phosphorus Magnesium Total Bilirubin 1.1 1.2 AST 103 H 115 H ALT 103 H 114 H Alkaline Phosphatase 136 H 124 Troponin I 0.025 0.024 0.025 NT-Pro-B Natriuret Pep 4080 H Total Protein 7.0 7.0 Albumin 4.0 4.0 Triglycerides Cholesterol LDL Cholesterol Direct HDL Direct Lipase 71 TSH Urine Color Urine Appearance Urine pH Ur Specific [place] Urine Protein Urine Glucose (UA) Urine Ketones Ur Blood (Man) Urine Nitrate Urine Bilirubin Urine Urobilinogen Ur Leukocyte Esterase 10/09/24 10/10/24 23:40 04:28 WBC RBC Hgb Hct MCV MCH MCHC RDW Plt Count MPV Immature Gran % (Auto) Neut % (Auto) Lymph % (Auto) [place] % (Auto) Eos % (Auto) Baso % (Auto) Lymph # (Auto) [place] # (Auto) Eos # (Auto) Baso # (Auto) Abs Immat Gran (auto) Absolute Neuts (auto) Absolute Nucleated RBC Nucleated RBC % PT 17.2 H INR 1.4 APTT 40.9 H D-Dimer Sodium Potassium Chloride Carbon Dioxide Anion Gap BUN Creatinine Estim Creat Clear Calc Estimated GFR Glucose Hemoglobin A1c 5.9 H Calcium Phosphorus 3.8 Magnesium 1.9 Total Bilirubin AST ALT Alkaline Phosphatase Troponin I NT-Pro-B Natriuret Pep Total Protein Albumin Triglycerides 79 Cholesterol 102 LDL Cholesterol Direct 57 HDL Direct 21 Lipase TSH 2.130 Urine Color Yellow Urine Appearance Clear Urine pH 5.0 Ur Specific [place] 1.007 Urine Protein Negative Urine Glucose (UA) Negative Urine Ketones Negative Ur Blood (Man) Negative Urine Nitrate Negative Urine Bilirubin Negative Urine Urobilinogen 0.2 Ur Leukocyte Esterase Negative Quality VTE Prophylaxis VTE prophylaxis: pharmacologic ordered
--- NOTE | 2024-10-10 12:48 | P.CONCA_ITS ---
Assessment and Plan Assessment and plan (1) Atrial fibrillation with RVR: Code(s): I48.91 - Unspecified atrial fibrillation Status: Acute Assessment and Plan: Patient has atrial fibrillation with rapid ventricular response despite diltiazem drip. Uncertain if this is a primary secondary issue in the sense that he certainly could have a pulmonary embolism that has caused him to flip in atrial fibrillation. Regardless he is on full anticoagulation form of Lovenox because of his DVT in his right gastrocnemius vein. Onset of atrial fibrillation is a bit uncertain but likely at least several days. Ideally I would not use amiodarone in this case given the unknown duration of his atrial fibrillation but given his difficulty to treat AFib despite diltiazem, will use a amiodarone bolus 150 mg IV x1 and evaluate for response. Can also consider adding a beta-dusty or even digoxin if need be. He response to the amiodarone, may switch him to an amiodarone drip from the diltiazem. He should be kept NPO after midnight for consideration of a CONSTANTINE cardioversion tomorrow. 2D echocardiogram with Doppler is ordered. V/Q scan pending. (2) Hyperlipidemia: Code(s): E78.5 - Hyperlipidemia, unspecified Status: Acute (3) Hypertension: Code(s): I10 - Essential (primary) hypertension Status: Acute Assessment and Plan: At goal (4) Elevated brain natriuretic peptide (BNP) level: Code(s): R79.89 - Other specified abnormal findings of blood chemistry Status: Acute Assessment and Plan: Probably related atrial fibrillation with rapid ventricular spine is causing some heart failure plus/minus related to a possible PE. Will give a dose of furosemide 40 mg IV x1 now (5) Deep vein thrombosis (DVT) of right lower extremity: Qualifiers: Affected thrombotic vein of extremity: calf muscle vein Chronicity: a cute Qualified Code(s): I82.461 - Acute embolism and thrombosis of right calf muscular vein Code(s): I82.401 - Acute embolism and thrombosis of unspecified deep veins of right lower extremity Status: Acute Assessment and Plan: On the enoxaparin (6) COPD (chronic obstructive pulmonary disease): Code(s): J44.9 - Chronic obstructive pulmonary disease, unspecified Status: Acute Assessment and Plan: Related to cigarette use History of Present Illness History of Present Illness Consult date/time: 10/10/24 12:48 Requesting physician: Torie Salazar PA-C Consult reason: atrial fibrillation Reason For Visit: Atrial fibrillation with rapid ventricular rate Narrative: Date of service 10/10/2024 Reason consultation: Atrial fibrillation Requesting provider: Torie salazar History: Patient is a 79-year-old male who is visiting his sister who lives in [place]. He lives in [place]. He was driving from [place] to this area and in route, he started to have some shortness of breath and leg swelling. States that over the past 7 in 9 days it was progressively worsening. It started in his feet and then progressed up to even bloating and swelling in his abdomen. He did have chest pain which he describes as a pounding sensation about a week ago. Whenever he arrived in [place], he also had some chest pain again which he describes as a pounding. He has had some worsening shortness of breath, paroxysmal nocturnal dyspnea and orthopnea. No syncope or presyncope. Due to ongoing symptoms, he decided to come to the hospital yesterday at the insistence of his sister. He is found to be in atrial fibrillation with rapid ventricular response. He does have a right gastrocnemius DVT. CTA was ordered to rule out for pulmonary embolism but he is claustrophobic. V/Q scan is pending. He was started on diltiazem drip for his atrial fibrillation but is still and rapid ventricular response Review of Systems 2 Review of Systems: All systems reviewed & are unremarkable except as noted in HPI and below Constitutional: Constitutional: Denies body ache(s) Eyes: Eyes: Denies blurry vision ENT: Reports Normal hearing present Cardiovascular: Cardiovascular: Reports chest pain, Reports leg edema, Reports lightheadedness and Reports palpitations Respiratory: Respiratory: Reports dyspnea on exertion Gastrointestinal: Gastrointestinal: Denies abdominal pain and Reports bloating Genitourinary: Genitourinary: Denies hematuria Musculoskeletal: Musculoskeletal: Denies back pain Integumentary/Breasts: Skin/Breast: Denies skin pain Comments: Skin cancer on face Neurologic: Denies Abnormal speech present Psychiatric: Psychiatric: Denies anxiety Endocrine: Endocrine: Denies excessive sweating Hematologic/Lymphatic: Hematologic/Lymphatic: Denies easy bleeding Allergic/Immunologic: Allergic/Immunologic: Denies GI upset with certain foods PMFSH Past Medical History Medical History (Updated 10/10/24 @ 12:52 by Luigi Birmingham MD) Hyperlipidemia Hypertension COPD (chronic obstructive pulmonary disease) History of skin cancer Family History Family History (Updated 10/10/24 @ 12:52 by Luigi Birmingham MD) Mother Cancer Social History Social History Years smoked: 60 Smoking status: Former smoker Tobacco type: cigarettes Second hand tobacco smoke exposure: No Alcohol intake: current Substance use: never Do You Feel Safe in your Home?: Yes Lack of Transportation: No Lack of Food: Never True Current Housing: I Have Housing Concerned About Future Housing: No Difficulty Paying Gas/Electric Bills: No Difficulty Paying for Meds: No Currently Unemployed: No Education: Associate Degree Difficulty w/ Childcare or Family Care: No Spiritual care concerns: No Meds Home Medications and Allergies Home Medications ?Medication ?Instructions ?Recorded ?Confirmed ?Type aspirin 81 mg chewable tablet 81 mg PO DAILY 10/09/24 10/09/24 History (Keegan Chewable Low Dose Aspirin) Allergies Allergy/AdvReac Type Severity Reaction Status Date / Time No Known Allergies Allergy Verified 10/09/24 14:47 Vital Signs Vital Signs - 24 hr 10/09/24 14:31 10/09/24 14:34 10/09/24 14:45 Temperature Pulse Rate 145 H 158 H 152 H Respiratory Rate 32 H 22 H 24 H Blood Pressure 106/87 106/87 118/102 H Pulse Oximetry 97 96 94 Oxygen Delivery Oxygen Flow Rate 10/09/24 14:46 10/09/24 14:55 10/09/24 15:10 Temperature 36.8 C Pulse Rate 152 H 140 H Respiratory Rate 21 H Blood Pressure 118/102 H Pulse Oximetry 95 Oxygen Delivery Oxygen Flow Rate 10/09/24 15:43 10/09/24 15:43 10/09/24 16:01 Temperature Pulse Rate 134 H 150 H 149 H Respiratory Rate 26 H 27 H 33 H Blood Pressure 104/76 104/76 101/80 Pulse Oximetry 94 95 95 Oxygen Delivery Oxygen Flow Rate 10/09/24 16:30 10/09/24 16:46 10/09/24 17:01 Temperature Pulse Rate 146 H 157 H 157 H Respiratory Rate 30 H 28 H 25 H Blood Pressure 117/85 125/76 98/83 L Pulse Oximetry 95 Oxygen Delivery Oxygen Flow Rate 10/09/24 17:15 10/09/24 17:32 10/09/24 17:46 Temperature Pulse Rate 154 H 157 H 162 H Respiratory Rate 29 H 28 H 20 Blood Pressure 119/87 110/84 120/90 Pulse Oximetry 94 97 Oxygen Delivery Oxygen Flow Rate 10/09/24 17:51 10/09/24 18:37 10/09/24 18:39 Temperature Pulse Rate 162 H 140 H 147 H Respiratory Rate 24 H Blood Pressure 120/90 99/77 L Pulse Oximetry 99 Oxygen Delivery Oxygen Flow Rate 10/09/24 19:00 10/09/24 19:04 10/09/24 20:00 Temperature 36.4 C Pulse Rate 140 H 140 H Respiratory Rate 22 H Blood Pressure 128/92 H 128/92 H Pulse Oximetry 98 Oxygen Delivery Room Air Oxygen Flow Rate 10/09/24 20:00 10/09/24 21:00 10/09/24 22:00 Temperature Pulse Rate 143 H 147 H 149 H Respiratory Rate Blood Pressure 113/86 Pulse Oximetry Oxygen Delivery Oxygen Flow Rate 10/09/24 22:00 10/09/24 23:40 10/09/24 23:40 Temperature 36.4 C Pulse Rate 152 H 128 H 128 H Respiratory Rate 24 H Blood Pressure 126/83 126/83 Pulse Oximetry 98 Oxygen Delivery Oxygen Flow Rate 10/10/24 00:00 10/10/24 00:00 10/10/24 02:00 Temperature Pulse Rate 143 H 147 H Respiratory Rate Blood Pressure 111/82 Pulse Oximetry Oxygen Delivery Room Air Oxygen Flow Rate 10/10/24 02:00 10/10/24 02:54 10/10/24 04:00 Temperature Pulse Rate 147 H 152 H 99 Respiratory Rate Blood Pressure Pulse Oximetry Oxygen Delivery Oxygen Flow Rate 10/10/24 04:20 10/10/24 04:20 10/10/24 04:30 Temperature 36.5 C Pulse Rate 111 H 109 H Respiratory Rate 22 H Blood Pressure 112/81 112/81 Pulse Oximetry 100 100 Oxygen Delivery Nasal Cannula Oxygen Flow Rate 2 10/10/24 04:31 10/10/24 06:00 10/10/24 06:30 Temperature Pulse Rate 109 H 125 H 126 H Respiratory Rate Blood Pressure 112/81 110/67 Pulse Oximetry Oxygen Delivery Oxygen Flow Rate 10/10/24 08:00 10/10/24 08:00 10/10/24 08:00 Temperature 36.7 C Pulse Rate 144 H 144 H Respiratory Rate 16 Blood Pressure 101/73 101/73 Pulse Oximetry 95 95 Oxygen Delivery Room Air Oxygen Flow Rate 10/10/24 08:00 10/10/24 10:00 10/10/24 10:00 Temperature 36.7 C Pulse Rate 128 H 124 H 149 H Respiratory Rate 24 H Blood Pressure 109/60 Pulse Oximetry 94 Oxygen Delivery Oxygen Flow Rate 10/10/24 10:00 10/10/24 11:12 10/10/24 11:22 Temperature Pulse Rate 124 H 141 H 141 H Respiratory Rate Blood Pressure 109/60 109/60 109/60 Pulse Oximetry Oxygen Delivery Oxygen Flow Rate 10/10/24 11:59 Temperature 36.6 C Pulse Rate 159 H Respiratory Rate 20 Blood Pressure 135/84 Pulse Oximetry 98 Oxygen Delivery Oxygen Flow Rate Exam 2 Narrative: Alert oriented appears stated age. Const: General: comfortable and no acute distress HENMT: Face/Nose/Sinus: Normal nares present Mouth: Yes moist mucous membranes Other: Skin cancer left side of his face Eyes: General: appearance normal, both eyes and all related structures S clera: sclerae normal Neck: Neck: supple and no JVD Chest: Other: No reproducible chest wall pain to palpation Resp: Effort & Inspection: normal respiratory effort Auscultation: crackles Cardio: Rate: tachycardic Rhythm: abnormal rhythm irregularly irregular Heart sounds: no murmurs GI: Inspection: distended GI Palp: Yes Soft to palpation Auscultation: n ormal bowel sounds Skin: General skin exam: normal color Neuro: Speech: normal speech Sensory Exam: normal sensation Extrem: General: edema Other: 2+ bilateral lower extremity edema Psych: Mental Status: mental status grossly normal Affect: normal affect Results Labs and Meds 10/09/24 21:53 10/09/24 21:53 Lab results: Cardiac Enzymes 10/09/24 10/09/24 10/09/24 Range/Units 14:39 19:02 21:53 AST 103 H 115 H (17-59) U/L Troponin I 0.025 0.024 0.025 (0.000-0.034) ng/mL Coagulation 10/09/24 10/10/24 Range/Units 14:39 04:28 PT 16.7 H 17.2 H (11.1-14.7) Seconds APTT 30.7 40.9 H (22.3-36.8) Seconds Lipids 10/10/24 Range/Units 04:28 Triglycerides 79 (<150) mg/dL Cholesterol 102 (0-200) mg/dL CBC 10/09/24 10/09/24 Range/Units 14:39 21:53 WBC 10.0 9.5 (4.5-10.0) K/mm3 RBC 4.51 L 4.54 L (4.6-6.20) M/mm3 Hgb 12.9 L 12.9 L (14.0-18.0) g/dL Hct 42.5 42.9 (42.0-52.0) % Plt Count 341 336 (150-375) k/mm3 Lymph # (Auto) 2.19 1.83 (0.9-3.2) K/mm3 [place] # (Auto) 1.0 H 1.0 H (0.1-0.6) K/mm3 Eos # (Auto) 0.2 0.1 (0-0.3) K/mm3 Baso # (Auto) 0.1 0.1 (0.0-0.1) K/mm3 Comprehensive Metabolic Panel 10/09/24 10/09/24 Range/Units 14:39 21:53 Sodium 138 140 (137-145) mmol/L Potassium 4.6 4.3 (3.4-5.0) mmol/L Chloride 104 103 (98-107) mmol/L Carbon Dioxide 24 28 (22-30) mmol/L BUN 40 H 42 H (9-20) mg/dL Creatinine 1.24 1.35 H (0.7-1.3) mg/dL Glucose 125 H 134 H (65-110) mg/dL Calcium 9.2 9.4 (8.4-10.2) mg/dL AST 103 H 115 H (17-59) U/L ALT 103 H 114 H (6-50) U/L Alkaline Phosphatase 136 H 124 (38-126) U/L Total Protein 7.0 7.0 (6.3-8.2) g/dL Albumin 4.0 4.0 (3.5-5.1) g/dL Intake and Output 10/09/24 10/10/24 10/10/24 23:59 07:59 15:59 Intake Total 65.3 1002.2 310.3 Output Total 1999 Balance 65.3 -997.8 310.3 Intake: IV 65.3 102.2 70.3 dilTIAZem 100 MG/100 ML 100 mg 65.3 102.2 70.3 In 100 ml @ 15 MG/HR 15 mls/hr IV CONT .Q6H40M [facility] Rx#: [id number] Oral 900 240 Output: Urine 1999 Other: Intake, Other Source from [id number] # Unmeasured Voids 3 Patient Weight 10/10/24 23:59 Weight 99.2 kg EKG is personally reviewed and independently interpreted showing atrial fibrillation with rapid ventricular response
[2024-10-10] MEDS: FUROSEMIDE INJ 40 MG/4 ML VIAL IV PUSH (13:09)
[2024-10-10] MEDS: AMIODARONE 150 MG/D5W 100 ML 150 MG/100 ML BAG 600 MG IV CONT (13:09)
[2024-10-10] MEDS: AMIODARONE 360 MG/D5W 200 ML 360 MG/200 ML BAG 33.33 MG IV CONT (13:47)
[2024-10-10] MEDS: AMIODARONE 360 MG/D5W 200 ML 360 MG/200 ML BAG 16.67 MG IV CONT (19:52)
[2024-10-10] MEDS: SIMETHICONE 80 MG TAB.CHEW PO (21:42)
[2024-10-10] MEDS: SENNOSIDES 8.6 MG TABLET PO (21:42)
[2024-10-10] MEDS: LEVALBUTEROL NEB 1.25 MG/3 ML INHALATION (21:43)
[2024-10-10] MEDS: oxyCODONE HCL (*CRX) 5 MG TAB IR PO (22:02)
[2024-10-11] VITALS (24 sets, daily range): BP systolic 95–129; BP diastolic 47–94; PULSE 127–152; RESP 16–24; TEMP 36.6–36.9; O2SAT 92–98
--- NOTE | 2024-10-11 | ECHO_ITS ---
Patient Info Name: Nhan Santiago Age: 79 years : 1945 Gender: Male Ht: 75 in Wt: 222 lbs BSA: 2.32 m2 HR: 134 bpm BP: 112 / 67 mmHg Technical Quality: Fair Exam Date: 10/11/2024 1:01 PM Patient Status: I Admit Date: 10/10/2024 Exam Type: CA echo dop color flow w con Complete two-dimensional, color flow and Doppler transthoracic echocardiogram is performed with contrast to opacify the left ventricle and to improve the deliniation of the left ventricle endocardial borders. Staff Referring Physician: Torie Salazar PAC Director Of Food And Nutrition Services: Felipa Thomas Attending Provider: Pérez Heranndez Contrast/Agitated Saline Contrast/Ag. Saline: Definity Amount: 2.00 ml Existing IV Access: Yes IV Access Condition: patent with no signs of infiltration Summary 1. The left ventricle is normal size with severely reduced systolic function. The left ventricular ejection fraction is visually estimated to be 20-25%. 2. There is biatrial enlargement. 3. The tricuspid valve leaflets are thickened. There is moderate tricuspid regurgitation. There is mild pulmonary hypertension with a PASP calculated to be 43 mm Hg. 4. Dilated inferior vena cava with <50% collapse upon inspiration consistent with significantly elevated right atrial pressure, 15 mmHg. Left Ventricle The left ventricle is normal size with severely reduced systolic function. The left ventricular ejection fraction is visually estimated to be 20-25%. Right Ventricle The right ventricle is normal size with normal systolic function. Left Atria The left atrium is mildly dilated. Right Atria The right atrium is severely dilated. Aortic Valve The aortic valve is trileaflet and opens well. There is no aortic regurgitation. Pulmonic Valve The pulmonic valve is not well visualized. There is no significant pulmonic valve regurgitation. Mitral Valve The mitral valve leaflets are thickened. There is mild mitral regurgitation. Tricuspid Valve The tricuspid valve leaflets are thickened. There is moderate tricuspid regurgitation. There is mild pulmonary hypertension with a PASP calculated to be 43 mm Hg. Pericardium/Pleural Pericardium is normal in appearance with no evidence for significant pericardial effusion. Inferior Vena Cava Dilated inferior vena cava with <50% collapse upon inspiration consistent with significantly elevated right atrial pressure, 15 mmHg. Aorta The proximal portion of the visualized descending aorta measures 3.2 cm in diameter. Left Ventricular Outflow Tract Name Value Normal LVOT 2D LVOT Diameter 2.2 cm LVOT Doppler LVOT Peak Velocity 79 cm/s LVOT Peak Gradient 1 mmHg LVOT Mean Gradient 1 mmHg LVOT VTI 12 cm LVOT VTI/AV VTI Ratio 0.8 LVOT Stroke Volume 46 ml LVOT CO 8.3 l/min LVOT CI 3.6 l/min/m2 Pulmonic Valve Name Value Normal PV Doppler PV Peak Velocity 57 cm/s PV Peak Gradient 1 mmHg Mitral Valve Name Value Normal MV Diastolic Function MV E Peak Velocity 111 cm/s MV A Peak Velocity 4 cm/s MV E/A 29.7 MV Decel Time (PW) 165 ms MV Annular TDI MV E/e' (Septal) 16.2 MV E/e' (Lateral) 11.1 MV E/e' (Average) 13.6 Tricuspid Valve Name Value Normal TV Regurgitation Doppler TR Peak Velocity 263 cm/s TR Peak Gradient 28 mmHg Estimated PAP/RSVP RA Pressure 15 mmHg <=5 PA Systolic Pressure 43 mmHg <36 RV Systolic Pressure 43 mmHg <36 TV Annular TDI TV Lateral Kirti s' Velocity 9.6 cm/s >=9.5 Aorta Name Value Normal Ascending Aorta Ao Root Diameter (MM) 3.2 cm Ao Root Diam Index (MM) 1.4 cm/m2 Aortic Valve Name Value Normal AV Doppler AV Peak Velocity 103 cm/s AV Peak Gradient 2 mmHg AV Mean Gradient 1 mmHg AV VTI 16 cm AV Area (Cont Eq VTI) 2.9 cm2 >=3.0 AV Area (Cont Eq Magdy) 2.9 cm2 AV DI (Magdy) 0.77 AV Regurgitation 2D LVOT Area 3.8 cm2 Ventricles Name Value Normal LV Dimensions 2D/MM IVS Diastolic Thickness (2D) 1.0 cm 0.6-1.0 LVID Diastole (2D) 5.3 cm 4.2-5.8 LVIW Diastolic Thickness (2D) 0.9 cm 0.6-1.0 LVID Systole (2D) 4.3 cm 2.5-4.0 LVOT Diameter 2.2 cm LV Mass (2D Cubed) 187.38 g 88.00-224.00 LV Mass Index (2D Cubed) 81 g/m2 49-115 Relative Wall Thickness (2D) 0.36 <=0.42 LV Fractional Shortening/Ejection Fraction 2D/MM LV Fractional Shortening (2D) 18 % 25-43 LV EF (2D Teichholz) 37 % LV Diastolic Volume (4C MOD) 80 ml LV EF (4C MOD) 4 % LV Diastolic Volume (2C MOD) 103 ml LV EF (2C MOD) 22 % LV Diastolic Volume (BP MOD) 92 ml 62-150 LV Diastolic Volume Index (BP MOD) 39 ml/m2 34-74 LV Systolic Volume (BP MOD) 81 ml 21-61 LV Systolic Volume Index (BP MOD) 35 ml/m2 11-31 LV EF (BP MOD) 12 % 52-72 LV Diastolic Length (4C) 8.4 cm LV Systolic Length (4C) 7.6 cm LV Stroke Volume (4C MOD) 3 ml RV Dimensions 2D/MM RVID Diastole (2D) 4.8 cm 2.1-3.5 Atria Name Value Normal LA Dimensions LA Dimension (MM) 4.7 cm 3.0-4.0 LA Volume (4C A-L) 88 ml LA Volume (BP A-L) 90 ml RA Dimensions RA Systolic Major [place] Length (4C) 6.6 cm 2.1-2.7 RA Area (4C) 29.0 cm2 <=18.0 Report Signatures
[2024-10-11] MEDS: LEVALBUTEROL NEB 1.25 MG/3 ML INHALATION ×4 (01:59→20:39)
[2024-10-11] MEDS: oxyCODONE HCL (*CRX) 5 MG TAB IR PO (02:16)
[2024-10-11] MEDS: ENOXAPARIN 100 MG/ML SYRINGE SUB-Q ×2 (06:30→16:11)
[2024-10-11] MEDS: AMIODARONE 360 MG/D5W 200 ML 360 MG/200 ML BAG 16.67 MG IV CONT ×2 (07:13→20:00)
[2024-10-11 08:30] LABS: Anion Gap 4 mmol/L (4-12); Blood Urea Nitrogen 46 mg/dL (9-20); Calcium 8.8 mg/dL (8.4-10.2); Carbon Dioxide 34 mmol/L (22-30); Chloride 102 mmol/L (98-107); Estimated CRCL calculation 49 ml/min; Estimated Glomerular Filt Rate 51; Glucose 113 mg/dL (65-110); Potassium 4.2 mmol/L (3.4-5.0); Sodium 140 mmol/L (137-145)
[2024-10-11] MEDS: ASPIRIN 81 MG CHEWABLE TABLET PO (08:50)
[2024-10-11] MEDS: ACETAMINOPHEN 325 MG TABLET 650 MG PO ×3 (08:53→22:07)
[2024-10-11] MEDS: hydrOXYzine HCL 25 MG TABLET PO ×3 (08:53→22:07)
--- NOTE | 2024-10-11 10:29 | PM.PNCARD ---
Progress Note: A&P Assessment and Plan (1) Atrial fibrillation with RVR: Code(s): I48.91 - Unspecified atrial fibrillation Status: Acute Plan 79-year-old man admitted for shortness of breath found to have DVT and presumably new onset atrial fibrillation with rapid ventricular rates New onset atrial fibrillation with rapid ventricular rates -can transition his Lovenox to Eliquis 5 mg p.o. b.i.d. -ALO with cardioversion when anesthesia available -we discussed the risk and benefits alo with cardioversion as well as alternatives and patient agreed to proceed forward Subjective Date/time seen: 10/11/24 10:29 Interval history: Patient states that his heart pain has significantly subsided. His shortness of breath has significantly subsided as well. Review of Systems Cardiovascular: Cardiovascular: Reports as per HPI Respiratory: Respiratory: Reports as per HPI Exam Const: General: no acute distress HENMT: Mouth: Yes moist mucous membranes Eyes: EOM: EOMs intact bilaterally Neck: Neck: no JVD Resp: Effort & Inspection: normal respiratory effort Auscultation: rhonchi Cardio: Rate: tachycardic Rhythm: abnormal rhythm Skin: Other: Wounds on face and near nose from his melanoma Extrem: Other: Swollen legs Objective Data Vital Signs Vital Signs: Vital Signs - 24 hr 10/10/24 11:12 10/10/24 11:22 10/10/24 11:59 Temperature 36.6 C Pulse Rate 141 H 141 H 159 H Respiratory Rate 20 Blood Pressure 109/60 109/60 135/84 Pulse Oximetry 98 Oxygen Delivery 10/10/24 12:00 10/10/24 12:00 10/10/24 13:07 Temperature Pulse Rate 144 H 150 H Respiratory Rate Blood Pressure 135/84 Pulse Oximetry 98 Oxygen Delivery Room Air 10/10/24 13:09 10/10/24 13:20 10/10/24 13:41 Temperature Pulse Rate 150 H 120 H 120 H Respiratory Rate Blood Pressure 135/84 135/84 135/84 Pulse Oximetry Oxygen Delivery 10/10/24 13:47 10/10/24 14:00 10/10/24 14:00 Temperature Pulse Rate 136 H 142 H 147 H Respiratory Rate Blood Pressure 135/84 97/57 L Pulse Oximetry Oxygen Delivery 10/10/24 14:00 10/10/24 16:00 10/10/24 16:00 Temperature 36.6 C Pulse Rate 136 H 135 H 135 H Respiratory Rate 18 16 Blood Pressure 97/57 L 101/85 101/85 Pulse Oximetry 96 98 Oxygen Delivery 10/10/24 16:00 10/10/24 16:00 10/10/24 17:36 Temperature Pulse Rate 142 H 139 H Respiratory Rate Blood Pressure Pulse Oximetry 98 Oxygen Delivery Room Air 10/10/24 18:00 10/10/24 18:00 10/10/24 18:00 Temperature Pulse Rate 118 H 118 H 118 H Respiratory Rate 14 Blood Pressure 107/66 107/66 Pulse Oximetry 97 Oxygen Delivery 10/10/24 19:52 10/10/24 20:00 10/10/24 20:00 Temperature 36.6 C Pulse Rate 132 H 132 H Respiratory Rate 22 H Blood Pressure 116/93 H 116/93 H Pulse Oximetry 98 Oxygen Delivery Room Air 10/10/24 20:00 10/10/24 21:45 10/10/24 21:55 Temperature Pulse Rate 138 H 134 H 130 H Respiratory Rate 20 20 Blood Pressure Pulse Oximetry Oxygen Delivery 10/10/24 22:00 10/10/24 22:00 10/10/24 22:00 Temperature Pulse Rate 135 H 135 H 135 H Respiratory Rate Blood Pressure 124/83 124/83 Pulse Oximetry Oxygen Delivery 10/11/24 00:00 10/11/24 00:00 10/11/24 00:00 Temperature Pulse Rate 140 H 144 H Respiratory Rate Blood Pressure 124/79 Pulse Oximetry Oxygen Delivery Room Air 10/11/24 00:00 10/11/24 01:59 10/11/24 02:00 Temperature Pulse Rate 140 H 127 H 147 H Respiratory Rate 22 H 20 Blood Pressure 124/79 108/77 Pulse Oximetry 98 96 Oxygen Delivery 10/11/24 02:00 10/11/24 02:00 10/11/24 02:11 Temperature Pulse Rate 147 H 133 H 129 H Respiratory Rate 20 Blood Pressure 108/77 Pulse Oximetry Oxygen Delivery 10/11/24 04:00 10/11/24 04:00 10/11/24 04:00 Temperature 36.6 C Pulse Rate 144 H 144 H 144 H Respiratory Rate 20 Blood Pressure 124/79 124/79 Pulse Oximetry 97 Oxygen Delivery 10/11/24 04:20 10/11/24 06:00 10/11/24 06:00 Temperature Pulse Rate 139 H 139 H Respiratory Rate Blood Pressure 112/67 Pulse Oximetry Oxygen Delivery Room Air 10/11/24 06:00 10/11/24 07:13 10/11/24 07:13 Temperature Pulse Rate 139 H 139 H 139 H Respiratory Rate Blood Pressure 112/67 Pulse Oximetry Oxygen Delivery 10/11/24 07:40 10/11/24 07:50 10/11/24 07:50 Temperature 36.6 C Pulse Rate 133 H 139 H Respiratory Rate 24 H 16 Blood Pressure 108/78 Pulse Oximetry 95 92 Oxygen Delivery Room Air 10/11/24 08:00 10/11/24 08:00 10/11/24 08:01 Temperature Pulse Rate 132 H 145 H 132 H Respiratory Rate 16 16 Blood Pressure Pulse Oximetry 92 Oxygen Delivery Room Air 10/11/24 10:00 Temperature Pulse Rate 140 H Respiratory Rate Blood Pressure Pulse Oximetry Oxygen Delivery Intake/Output Intake/Output: Intake & Output 10/08/24 10/09/24 10/10/24 10/11/24 23:59 23:59 23:59 23:59 Intake Total 65.3 2315.0 453.5 Output Total 3500 500 Balance 65.3 -1185.0 -46.5 Meds/Results Medications: Active Medications Generic Name Dose Route Start Last Admin Trade Name Freq PRN Reason Stop Dose Admin Acetaminophen 650 mg 10/11/24 04:00 10/11/24 08:53 Acetaminophen 325 Mg Tablet PO 650 mg Q6H GIANFRANCO Administration Aspirin 81 mg 10/10/24 09:00 10/11/24 08:50 Aspirin 81 Mg Chewable Tablet PO 81 mg DAILY GIANFRANCO Administration Enoxaparin Sodium 100 mg 10/10/24 05:00 10/11/24 06:30 Enoxaparin 100 Mg/Ml Syringe SUB-Q 100 mg Q12H GIANFRANCO Administration Hydroxyzine HCl 25 mg 10/10/24 00:06 10/11/24 08:53 Hydroxyzine Hcl 25 Mg Tablet PO 25 mg Q6H PRN Administration Anxiety Amiodarone HCl/Dextrose 360 mg in 200 mls @ 16.667 mls/hr 10/10/24 19:45 10/11/24 07:13 Nexterone 360 Mg/D5w 200 Ml IV CONT 10/11/24 19:44 0.5 mg/min .Q12H GIANFRANCO 16.67 mls/hr Administration Protocol 0.5 MG/MIN Levalbuterol HCl 1.25 mg 10/10/24 20:35 10/11/24 07:50 Levalbuterol Neb 1.25 Mg/3 Ml INHALATION 1.25 mg Q6HRT GIANFRANCO Administration Oxycodone HCl 5 mg 10/10/24 21:51 10/11/24 02:16 Oxycodone Hcl (*Crx) 5 Mg Tab Ir PO 5 mg Q4H PRN Administration Pain Rated 7-10 Perflutren Lipid Microsphere 0 ml 10/09/24 19:39 Perflutren Lipid Microspheres 1.5 Ml Vial Diluted To 10 Ml Total Volume IV PUSH 10/12/24 19:39 ONCE PRN adequate visualization Protocol Senna 8.6 mg 10/10/24 21:00 10/10/24 21:42 Sennosides 8.6 Mg Tablet PO 8.6 mg HS GIANFRANCO Administration Simethicone 80 mg 10/10/24 20:35 10/10/24 21:42 Simethicone 80 Mg Tab.Chew PO 80 mg QID PRN Administration Flatulence, Bloating Radiology Results: ITS Impressions Chest X-Ray 10/09/24 15:08 IMPRESSION: No acute cardiopulmonary pathology. Venous Doppler Study 10/09/24 15:49 IMPRESSION: Thrombosis in the right gastrocnemius vein. Other appearances are unremarkable. Labs Labs: Laboratory Results - last 24 hr 10/11/24 08:09 Sodium 140 Potassium 4.2 Chloride 102 Carbon Dioxide 34 H Anion Gap 4 BUN 46 H Creatinine 1.35 H Estim Creat Clear Calc 49 Estimated GFR 51 L Glucose 113 H Calcium 8.8 Magnesium 2.0
[2024-10-11] MEDS: PERFLUTREN LIPID MICROSPHERES 1.5 ML VIAL DILUTED TO 10 ML TOTAL VOLUME IV PUSH (13:25)
--- NOTE | 2024-10-11 14:05 | P.PNIM_ITS ---
Progress Note: A&P Assessment and Plan (1) Atrial fibrillation with RVR: Code(s): I48.91 - Unspecified atrial fibrillation Status: Acute Assessment and Plan: new afib with RVR plan for CONSTANTINE cardioversion today amiodarone drip Lovenox IV Lasix to help reduce strain on heart echo pending cardiology team on board (2) Elevated brain natriuretic peptide (BNP) level: Code(s): R79.89 - Other specified abnormal findings of blood chemistry Status: Acute Assessment and Plan: Cardiology consulted pending recommendations IV Lasix Aggressively diuresing Echocardiogram pending Lipid panel (3) Deep vein thrombosis (DVT) of right lower extremity: Qualifiers: Affected thrombotic vein of extremity: calf muscle vein Chronicity: acute Qualified Code(s): I82.461 - Acute embolism and thrombosis of right calf muscular vein Code(s): I82.401 - Acute embolism and thrombosis of unspecified deep veins of right lower extremity Status: Acute Assessment and Plan: Therapeutic Lovenox (4) Shortness of breath: Code(s): R06.02 - Shortness of breath Status: Acute Assessment and Plan: combination of CHF and PE D-dimer elevated, atrial fibrillation with RVR, right lower extremity DVT Patient states that he is claustrophobic, and last time he got a CT he vomited and aspirated Patient being diuresed and given therapeutic Lovenox V/Q scan when patient is stable (5) Slurred speech: Code(s): R47.81 - Slurred speech Status: Acute Assessment and Plan: ?TIA Patient states that he is claustrophobic, and last time he got a CT he vomited and aspirated continue to monitor (6) Anemia: Code(s): D64.9 - Anemia, unspecified Status: Acute Assessment and Plan: No signs of acute bleeding Could be dilutional, patient is being aggressively diuresed CBC the morning Anemia workup (7) Headache: Code(s): R51.9 - Headache, unspecified Status: Acute Assessment and Plan: Tylenol (8) Transaminitis: Code(s): R74.01 - Elevation of levels of liver transaminase levels Status: Acute Assessment and Plan: CMP in the morning (9) Hyperglycemia: Code(s): R73.9 - Hyperglycemia, unspecified Status: Acute Assessment and Plan: pre diabetes Hemoglobin A1c 5.9 Subjective Date/time seen: 10/11/24 14:05 Interval history: per HPi: 79-year-old male who does not go to the doctor presents to the hospital with leg swelling and pain. Patient states that about 10 days ago he drove from [place] to [place]. He states that it proximally taken [address], and on Friday and Friday he drove about 500 miles each day. He states on Friday of this week that he noticed that his right leg kept increasing in size and was red. He also complains of difficulties breathing, and intermittent slurred speech. He states that due to the symptoms his appetite is decreased he has mostly been eating popsicles over the last 3 or 4 days. He also states that he is only able to sleep for an hour at a time. And states that he has gotten very little sleep over the last 2 days. Patient denies nausea vomiting, diarrhea fever chills. In the ED was found to have a hemoglobin of 12.9, D-dimer of 2.22, BUN of 40, creatinine of 1.24, GFR 57, glucose of 125, AST of 103 ALT of 103 alkaline phos of 136, proBNP of 4080, troponin of 0.025 and 0.024. Venous Doppler shows Thrombosis in the right gastrocnemius vein. 10/10/24 patient was seen and examined at bedside. he is complaining of leg swelling and SOb which has been getting worse for past 5 days. denies abd pain, nausea a or vomiting. R leg positive for DVT. Vq scan pending. On Cardizem drip and Lovenox. cardiology team on board. 10/11/24 Patient was seen and examined at bedside. he is feeling better. his breathing is better. denies chest pain, abd pain, N/V. Still afib with RVR. plan fro CONSTANTINE cardioversion today. On amiodarone drip and lovenox. Review of Systems Review of Systems: 12 systems were reviewed and are negativ e except for as per HPI. Exam Narrative: General: well appearing, appears stated age. HEENT: normocephalic, atraumatic. Mucous membranes moist. EOMI, PERRLA, bilateral sclera anicteric, no conjunctival injection. Neck supple without JVD, lymphadenopathy, or bruit. Respiratory: clear to ascultation bilaterally. No rales/rhonic/wheezes. Cardiovascular: irRegular rate and rhythm, normal S1-S2 upon ascultation. No murmurs, rubs, or clicks. PMI is nondisplaced, capillary refill less than 3 second. Abdomen: Soft, round, no pulsatile masses, nondistended and nontender. No rebound, no guarding. No CVA tenderness, no hepatosplenomegaly. Bowel sounds present to all four quadrants. No high pitch or tinkling sounds, resonant to percussion. Extremities: No cyanosis, clubbing, or edema present. Pulses are palpable 2/2. Bilateral lower extremity edema. Neuro: Alert and orientated x 4. PERRLA. Cranial nerves 2-12 intact without focal deficit. Skin: Warm, dry, and intact, without rash, erythema, or lesion. Psych: pleasant, cooperative, normal speech, normal affect, no hallucinations, no dysarthia Objective Data Vital Signs Vital Signs: Vital Signs - 24 hr 10/10/24 16:00 10/10/24 16:00 10/10/24 16:00 Temperature 98 F Pulse Rate 135 H 135 H Respiratory Rate 16 Blood Pressure 101/85 101/85 Pulse Oximetry 98 98 Oxygen Delivery Room Air 10/10/24 16:00 10/10/24 17:36 10/10/24 18:00 Temperature Pulse Rate 142 H 139 H 118 H Respiratory Rate 14 Blood Pressure 107/66 Pulse Oximetry 97 Oxygen Delivery 10/10/24 18:00 10/10/24 18:00 10/10/24 19:52 Temperature Pulse Rate 118 H 118 H 132 H Respiratory Rate Blood Pressure 107/66 116/93 H Pulse Oximetry Oxygen Delivery 10/10/24 20:00 10/10/24 20:00 10/10/24 20:00 Temperature 97.8 F Pulse Rate 132 H 138 H Respiratory Rate 22 H Blood Pressure 116/93 H Pulse Oximetry 98 Oxygen Delivery Room Air 10/10/24 21:45 10/10/24 21:55 10/10/24 22:00 Temperature Pulse Rate 134 H 130 H 135 H Respiratory Rate 20 20 Blood Pressure 124/83 Pulse Oximetry Oxygen Delivery 10/10/24 22:00 10/10/24 22:00 10/11/24 00:00 Temperature Pulse Rate 135 H 135 H Respiratory Rate Blood Pressure 124/83 Pulse Oximetry Oxygen Delivery Room Air 10/11/24 00:00 10/11/24 00:00 10/11/24 00:00 Temperature Pulse Rate 140 H 144 H 140 H Respiratory Rate 22 H Blood Pressure 124/79 124/79 Pulse Oximetry 98 Oxygen Delivery 10/11/24 01:59 10/11/24 02:00 10/11/24 02:00 Temperature Pulse Rate 127 H 147 H 147 H Respiratory Rate 20 Blood Pressure 108/77 108/77 Pulse Oximetry 96 Oxygen Delivery 10/11/24 02:00 10/11/24 02:11 10/11/24 04:00 Temperature Pulse Rate 133 H 129 H 144 H Respiratory Rate 20 Blood Pressure 124/79 Pulse Oximetry Oxygen Delivery 10/11/24 04:00 10/11/24 04:00 10/11/24 04:20 Temperature 97.9 F Pulse Rate 144 H 144 H Respiratory Rate 20 Blood Pressure 124/79 Pulse Oximetry 97 Oxygen Delivery Room Air 10/11/24 06:00 10/11/24 06:00 10/11/24 06:00 Temperature Pulse Rate 139 H 139 H 139 H Respiratory Rate Blood Pressure 112/67 112/67 Pulse Oximetry Oxygen Delivery 10/11/24 07:13 10/11/24 07:13 10/11/24 07:40 Temperature 97.8 F Pulse Rate 139 H 139 H 133 H Respiratory Rate 24 H Blood Pressure 108/78 Pulse Oximetry 95 Oxygen Delivery 10/11/24 07:50 10/11/24 07:50 10/11/24 08:00 Temperature Pulse Rate 139 H 132 H Respiratory Rate 16 16 Blood Pressure Pulse Oximetry 92 92 Oxygen Delivery Room Air Room Air 10/11/24 08:00 10/11/24 08:01 10/11/24 10:00 Temperature Pulse Rate 145 H 132 H 140 H Respiratory Rate 16 Blood Pressure Pulse Oximetry Oxygen Delivery 10/11/24 10:00 10/11/24 12:00 Temperature 98.1 F Pulse Rate 134 H 141 H Respiratory Rate 16 18 Blood Pressure 95/63 L 107/69 Pulse Oximetry 95 Oxygen Delivery Intake/Output Intake/Output: Intake & Output 10/08/24 10/09/24 10/10/24 10/11/24 23:59 23:59 23:59 23:59 Intake Total 65.3 2315.0 453.5 Output Total 3500 500 Balance 65.3 -1185.0 -46.5 Meds/Results Medications: Active Medications Generic Name Dose Route Start Last Admin Trade Name Freq PRN Reason Stop Dose Admin Acetaminophen 650 mg 10/11/24 04:00 10/11/24 08:53 Acetaminophen 325 Mg Tablet PO 650 mg Q6H GIANFRANCO Administration Aspirin 81 mg 10/10/24 09:00 10/11/24 08:50 Aspirin 81 Mg Chewable Tablet PO 81 mg DAILY GIANFRANCO Administration Enoxaparin Sodium 100 mg 10/10/24 05:00 10/11/24 06:30 Enoxaparin 100 Mg/Ml Syringe SUB-Q 100 mg Q12H GIANFRANCO Administration Hydroxyzine HCl 25 mg 10/10/24 00:06 10/11/24 08:53 Hydroxyzine Hcl 25 Mg Tablet PO 25 mg Q6H PRN Administration Anxiety Amiodarone HCl/Dextrose 360 mg in 200 mls @ 16.667 mls/hr 10/10/24 19:45 10/11/24 07:13 Nexterone 360 Mg/D5w 200 Ml IV CONT 10/11/24 19:44 0.5 mg/min .Q12H GIANFRANCO 16.67 mls/hr Administration Protocol 0.5 MG/MIN Levalbuterol HCl 1.25 mg 10/10/24 20:35 10/11/24 07:50 Levalbuterol Neb 1.25 Mg/3 Ml INHALATION 1.25 mg Q6HRT GIANFRANCO Administration Oxycodone HCl 5 mg 10/10/24 21:51 10/11/24 02:16 Oxycodone Hcl (*Crx) 5 Mg Tab Ir PO 5 mg Q4H PRN Administration Pain Rated 7-10 Senna 8.6 mg 10/10/24 21:00 10/10/24 21:42 Sennosides 8.6 Mg Tablet PO 8.6 mg HS GIANFRANCO Administration Simethicone 80 mg 10/10/24 20:35 10/10/24 21:42 Simethicone 80 Mg Tab.Chew PO 80 mg QID PRN Administration Flatulence, Bloating Radiology Results: ITS Impressions Chest X-Ray 10/09/24 15:08 IMPRESSION: No acute cardiopulmonary pathology. Venous Doppler Study 10/09/24 15:49 IMPRESSION: Thrombosis in the right gastrocnemius vein. Other appearances are unremarkable. Labs Labs: Laboratory Results - last 24 hr 10/11/24 08:09 Sodium 140 Potassium 4.2 Chloride 102 Carbon Dioxide 34 H Anion Gap 4 BUN 46 H Creatinine 1.35 H Estim Creat Clear Calc 49 Estimated GFR 51 L Glucose 113 H Calcium 8.8 Magnesium 2.0 Quality VTE Prophylaxis VTE prophylaxis: pharmacologic ordered
--- NOTE | 2024-10-11 17:04 | P.CONNEU_ITS ---
Assessment and Plan Assessment and plan (1) Slurred speech: Code(s): R47.81 - Slurred speech Status: Acute (2) Headache: Code(s): R51.9 - Headache, unspecified Status: Acute (3) Deep vein thrombosis (DVT) of right lower extremity: Qualifiers: Affected thrombotic vein of extremity: calf muscle vein Chronicity: a cute Qualified Code(s): I82.461 - Acute embolism and thrombosis of right calf muscular vein Code(s): I82.401 - Acute embolism and thrombosis of unspecified deep veins of right lower extremity Status: Acute (4) Hypertension: Code(s): I10 - Essential (primary) hypertension Status: Acute (5) Atrial fibrillation with RVR: Code(s): I48.91 - Unspecified atrial fibrillation Status: Acute (6) Hyperlipidemia: Code(s): E78.5 - Hyperlipidemia, unspecified Status: Acute Plan The patient denies any symptoms of slurring of the speech or headache though there appears to be some concern regarding it. Does not want any CT scan or MRI. I explained to him the CT scan and is in fact very different than MRI and he will not have any problem. however he insists that he does not have any issues with stroke-like symptoms nor does he have any chronic problem the headache. Hence I would suggest to clinically follow him up and if he has any further neurologic event please let us know and we shall be here to assist. Consult date: 10/11/24 HPI: Nhan Santiago is a 79 year old male who was brought in to the hospital with pain in the right lower limb and was found to have deep vein thrombosis for which he is on treatment. He also was found to have atrial fibrillation. According to the history he drove himself from [place] to [place] in 4 days. During the course of hospitalization he appeared to have some slurring of speech or headaches. According to the patient he does not think that he had any problem and states that he did not have any problem the speech or weakness in upper lower limbs. Patient is visiting his sister who lives locally. He does not want any CT or MRI because he has see that he started to have vomiting. There is no prior history of stroke or transient ischemic attack. His LDL was 57. Liver enzymes were high and GFR was low at 49 the creatinine of 1.35. Currently he denies any neurologic symptoms. Review of Systems 2 Review of Systems: All systems reviewed & are unremarkable except as noted in HPI and below PMFSH Past Medical History Medical History Hyperlipidemia Hypertension COPD (chronic obstructive pulmonary disease) History of skin cancer Family History Family History Mother Cancer Social History Social History Years smoked: 60 Smoking status: Former smoker Tobacco type: cigarettes Second hand tobacco smoke exposure: No Alcohol intake: current Substance use: never Do You Feel Safe in your Home?: Yes Lack of Transportation: No Lack of Food: Never True Current Housing: I Have Housing Concerned About Future Housing: No Difficulty Paying Gas/Electric Bills: No Difficulty Paying for Meds: No Currently Unemployed: No Education: Associate Degree Difficulty w/ Childcare or Family Care: No Spiritual care concerns: No Meds Home Medications and Allergies Home Medications ?Medication ?Instructions ?Recorded ?Confirmed ?Type aspirin 81 mg chewable tablet 81 mg PO DAILY 10/09/24 10/09/24 History (Keegan Chewable Low Dose Aspirin) Allergies Allergy/AdvReac Type Severity Reaction Status Date / Time No Known Allergies Allergy Verified 10/09/24 14:47 Vital Signs Vital Signs - 24 hr 10/10/24 17:36 10/10/24 18:00 10/10/24 18:00 Temperature Pulse Rate 139 H 118 H 118 H Respiratory Rate 14 Blood Pressure 107/66 107/66 Pulse Oximetry 97 Oxygen Delivery 10/10/24 18:00 10/10/24 19:52 10/10/24 20:00 Temperature 97.8 F Pulse Rate 118 H 132 H 132 H Respiratory Rate 22 H Blood Pressure 116/93 H 116/93 H Pulse Oximetry 98 Oxygen Delivery 10/10/24 20:00 10/10/24 20:00 10/10/24 21:45 Temperature Pulse Rate 138 H 134 H Respiratory Rate 20 Blood Pressure Pulse Oximetry Oxygen Delivery Room Air 10/10/24 21:55 10/10/24 22:00 10/10/24 22:00 Temperature Pulse Rate 130 H 135 H 135 H Respiratory Rate 20 Blood Pressure 124/83 124/83 Pulse Oximetry Oxygen Delivery 10/10/24 22:00 10/11/24 00:00 10/11/24 00:00 Temperature Pulse Rate 135 H 140 H Respiratory Rate Blood Pressure 124/79 Pulse Oximetry Oxygen Delivery Room Air 10/11/24 00:00 10/11/24 00:00 10/11/24 01:59 Temperature Pulse Rate 144 H 140 H 127 H Respiratory Rate 22 H 20 Blood Pressure 124/79 Pulse Oximetry 98 Oxygen Delivery 10/11/24 02:00 10/11/24 02:00 10/11/24 02:00 Temperature Pulse Rate 147 H 147 H 133 H Respiratory Rate Blood Pressure 108/77 108/77 Pulse Oximetry 96 Oxygen Delivery 10/11/24 02:11 10/11/24 04:00 10/11/24 04:00 Temperature 97.9 F Pulse Rate 129 H 144 H 144 H Respiratory Rate 20 20 Blood Pressure 124/79 124/79 Pulse Oximetry 97 Oxygen Delivery 10/11/24 04:00 10/11/24 04:20 10/11/24 06:00 Temperature Pulse Rate 144 H 139 H Respiratory Rate Blood Pressure Pulse Oximetry Oxygen Delivery Room Air 10/11/24 06:00 10/11/24 06:00 10/11/24 07:13 Temperature Pulse Rate 139 H 139 H 139 H Respiratory Rate Blood Pressure 112/67 112/67 Pulse Oximetry Oxygen Delivery 10/11/24 07:13 10/11/24 07:40 10/11/24 07:50 Temperature 97.8 F Pulse Rate 139 H 133 H 139 H Respiratory Rate 24 H 16 Blood Pressure 108/78 Pulse Oximetry 95 Oxygen Delivery 10/11/24 07:50 10/11/24 08:00 10/11/24 08:00 Temperature Pulse Rate 132 H 145 H Respiratory Rate 16 Blood Pressure Pulse Oximetry 92 92 Oxygen Delivery Room Air Room Air 10/11/24 08:01 10/11/24 10:00 10/11/24 10:00 Temperature 98.1 F Pulse Rate 132 H 140 H 134 H Respiratory Rate 16 16 Blood Pressure 95/63 L Pulse Oximetry 95 Oxygen Delivery 10/11/24 12:00 10/11/24 12:00 10/11/24 12:00 Temperature Pulse Rate 141 H 148 H 142 H Respiratory Rate 18 16 Blood Pressure 107/69 Pulse Oximetry 95 Oxygen Delivery Room Air 10/11/24 14:00 10/11/24 14:00 10/11/24 14:09 Temperature Pulse Rate 138 H 138 H Respiratory Rate 16 Blood Pressure 108/47 L Pulse Oximetry Oxygen Delivery 10/11/24 14:18 Temperature Pulse Rate 148 H Respiratory Rate 16 Blood Pressure Pulse Oximetry Oxygen Delivery Exam 2 Const: General: cooperative, well developed and alert O rientation/consciousness: patient oriented x3 HENMT: Head: atraumatic Eyes: Alignment and Position: position normal Pupils: Equal, round and reactive pupils present EOM: EOMs intact bilaterally Neck: Neck: supple Resp: Effort & Inspection: normal respiratory effort Neuro: General: patient oriented x3 Cranial nerves: Yes CN's II-XII intact bilaterally, Yes Equal, round and reactive pupils present, Yes facial symmetry and Yes Midline tongue present Cognition (Neuro): normal cognition Speech: normal speech Motor exam (neuro): 5/5 motor strength present throughout S ensory Exam: normal sensation Coordination: [id number] test normal and Normal rapid alternating movements of the distal upper extremity present (Neuro) Results Labs 10/09/24 21:53 10/11/24 08:09 Labs: BMP 10/11/24 08:09 Sodium 140 Potassium 4.2 Chloride 102 Carbon Dioxide 34 H BUN 46 H Creatinine 1.35 H Glucose 113 H Calcium 8.8
[2024-10-11] MEDS: SENNOSIDES 8.6 MG TABLET PO (22:07)
[2024-10-12] VITALS (27 sets, daily range): BP systolic 102–135; BP diastolic 65–96; PULSE 64–157; RESP 16–23; TEMP 36.3–37.1; O2SAT 93–100
[2024-10-12] MEDS: LEVALBUTEROL NEB 1.25 MG/3 ML INHALATION ×2 (01:30→18:11)
--- NOTE | 2024-10-12 01:30 | PCRCNOTE ---
Patient refused his 0200 treatment.
[2024-10-12] MEDS: hydrOXYzine HCL 25 MG TABLET PO ×4 (03:40→23:04)
[2024-10-12] MEDS: ACETAMINOPHEN 325 MG TABLET 650 MG PO ×4 (03:40→21:24)
[2024-10-12 04:37] LABS: Hematocrit 40.4 % (42.0-52.0); Mean Corpuscular HGB Conc 29.7 g/dl (32-36); Mean Corpuscular Hemoglobin 28.4 pg (26-34); Mean Corpuscular Volume 95.5 fl (80-100); Mean Platelet Volume 10.5 fl (7.4-10.4); Platelet Count Result 299 k/mm3 (150-375); Red Blood Count 4.23 M/mm3 (4.6-6.20); Red Cell Distribution Width 15.3 % (11.5-14.5); White Blood Count 7.6 K/mm3 (4.5-10.0)
[2024-10-12 04:52] LABS: Anion Gap 8 mmol/L (4-12); Blood Urea Nitrogen 40 mg/dL (9-20); Calcium 8.7 mg/dL (8.4-10.2); Carbon Dioxide 31 mmol/L (22-30); Chloride 101 mmol/L (98-107); Estimated CRCL calculation 55 ml/min; Estimated Glomerular Filt Rate 59; Glucose 100 mg/dL (65-110); Potassium 3.8 mmol/L (3.4-5.0); Sodium 140 mmol/L (137-145)
[2024-10-12] MEDS: ENOXAPARIN 100 MG/ML SYRINGE SUB-Q (05:21)
[2024-10-12] MEDS: oxyCODONE HCL (*CRX) 5 MG TAB IR PO (05:21)
[2024-10-12] MEDS: AMIODARONE 360 MG/D5W 200 ML 360 MG/200 ML BAG 16.67 MG IV CONT (07:32)
[2024-10-12] MEDS: ASPIRIN 81 MG CHEWABLE TABLET PO (09:45)
--- NOTE | 2024-10-12 09:46 | PM.PNCARD ---
Progress Note: A&P Assessment and Plan (1) Atrial fibrillation with RVR: Code(s): I48.91 - Unspecified atrial fibrillation Status: Acute Plan 1. Atrial fibrillation with RVR 2. 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 DVT 4. Hypertension 5. Hyperlipidemia 6. COPD PLAN: -Plan for CONSTANTINE-guided DCCV today. -Transition therapeutic Lovenox to Eliquis 5mg BID. -For HFrEF, will start Toprol, Jardiance, Spironolactone. Uptitrate heart failure GDMT as tolerated. Ischemic evaluation can be done as outpatient. Re-evaluate LVEF as an outpatient once he has maintained sinus rhythm. Recommendations and plan discussed with Hospitalist. Subjective Date/time seen: 10/12/24 09:46 Interval history: Reason for visit: Atrial fibrillation with RVR HPI: Patient is a 79-year-old male who is visiting his sister who lives in [place]. He lives in [place]. He was driving from [facility] to this area and in route, he started to have some shortness of breath and leg swelling. States that over the past 7 in 9 days it was progressively worsening. It started in his feet and then progressed up to even bloating and swelling in his abdomen. He did have chest pain which he describes as a pounding sensation about a week ago. Whenever he arrived in [place], he also had some chest pain again which he describes as a pounding. He has had some worsening shortness of breath, paroxysmal nocturnal dyspnea and orthopnea. No syncope or presyncope. Due to ongoing symptoms, he decided to come to the hospital yesterday at the insistence of his sister. He is found to be in atrial fibrillation with rapid ventricular response. He does have a right gastrocnemius DVT. CTA was ordered to rule out for pulmonary embolism but he is claustrophobic. V/Q scan is pending. He was started on diltiazem drip for his atrial fibrillation but is still and rapid ventricular response. Date of service 10/11: Patient states that his heart pain has significantly subsided. His shortness of breath has significantly subsided as well. Date of service 10/12: Remains in AFIB with RVR. Feeling okay. Review of Systems Cardiovascular: Cardiovascular: Reports as per HPI Exam Const: General: comfortable and no acute distress HENMT: Mouth: Yes moist mucous membranes Eyes: General: appearance normal, both eyes and all related structures Sclera: sclerae normal Resp: Effort & Inspection: normal respiratory effort Cardio: Rate: tachycardic Rhythm: abnormal rhythm irregularly irregular Skin: General skin exam: normal color Neuro: Speech: normal speech Psych: Mental Status: mental status grossly normal Affect: normal affect Objective Data Vital Signs Vital Signs: Vital Signs - 24 hr 10/11/24 10:00 10/11/24 10:00 10/11/24 12:00 Temperature 36.7 C Pulse Rate 140 H 134 H 141 H Respiratory Rate 16 18 Blood Pressure 95/63 L 107/69 Pulse Oximetry 95 Oxygen Delivery Oxygen Flow Rate 10/11/24 12:00 10/11/24 12:00 10/11/24 14:00 Temperature Pulse Rate 148 H 142 H 138 H Respiratory Rate 16 Blood Pressure Pulse Oximetry 95 Oxygen Delivery Room Air Oxygen Flow Rate 10/11/24 14:00 10/11/24 14:09 10/11/24 14:18 Temperature Pulse Rate 138 H 148 H Respiratory Rate 16 16 Blood Pressure 108/47 L Pulse Oximetry Oxygen Delivery Oxygen Flow Rate 10/11/24 16:00 10/11/24 16:00 10/11/24 18:00 Temperature Pulse Rate 152 H 152 H 142 H Respiratory Rate 16 Blood Pressure Pulse Oximetry 95 Oxygen Delivery Room Air Oxygen Flow Rate 10/11/24 18:00 10/11/24 18:28 10/11/24 20:00 Temperature 36.9 C Pulse Rate 143 H 147 H 142 H Respiratory Rate 18 18 Blood Pressure 122/60 119/88 Pulse Oximetry 94 Oxygen Delivery Oxygen Flow Rate 10/11/24 20:00 10/11/24 20:00 10/11/24 20:00 Temperature Pulse Rate 144 H 136 H Respiratory Rate Blood Pressure 119/88 Pulse Oximetry Oxygen Delivery Room Air Oxygen Flow Rate 10/11/24 20:39 10/11/24 20:50 10/11/24 20:50 Temperature Pulse Rate 144 H 144 H Respiratory Rate 16 16 Blood Pressure Pulse Oximetry 92 Oxygen Delivery Room Air Oxygen Flow Rate 10/11/24 22:00 10/11/24 22:00 10/11/24 22:00 Temperature Pulse Rate 133 H 133 H 133 H Respiratory Rate Blood Pressure 104/57 L 104/57 L Pulse Oximetry Oxygen Delivery Oxygen Flow Rate 10/11/24 23:42 10/11/24 23:55 10/12/24 00:00 Temperature 36.8 C Pulse Rate 147 H 146 H Respiratory Rate 20 Blood Pressure 129/94 H Pulse Oximetry 92 Oxygen Delivery Room Air Oxygen Flow Rate 10/12/24 00:00 10/12/24 02:00 10/12/24 02:00 Temperature Pulse Rate 146 H 135 H 135 H Respiratory Rate Blood Pressure 129/94 H 113/68 Pulse Oximetry 94 Oxygen Delivery Oxygen Flow Rate 10/12/24 02:00 10/12/24 03:41 10/12/24 03:51 Temperature 36.7 C Pulse Rate 135 H 157 H Respiratory Rate 23 H Blood Pressure 113/68 132/96 H Pulse Oximetry 96 96 Oxygen Delivery Nasal Cannula Oxygen Flow Rate 2 10/12/24 04:00 10/12/24 04:00 10/12/24 06:00 Temperature Pulse Rate 132 H 132 H 138 H Respiratory Rate 20 Blood Pressure 132/96 H 102/84 Pulse Oximetry 99 Oxygen Delivery Oxygen Flow Rate 10/12/24 06:00 10/12/24 06:00 10/12/24 07:32 Temperature Pulse Rate 138 H 138 H 138 H Respiratory Rate Blood Pressure 102/84 116/85 Pulse Oximetry Oxygen Delivery Oxygen Flow Rate 10/12/24 07:32 10/12/24 07:34 10/12/24 07:34 Temperature 37.1 C Pulse Rate 138 H 138 H Respiratory Rate 20 Blood Pressure 116/85 116/85 Pulse Oximetry 98 98 Oxygen Delivery Room Air Oxygen Flow Rate 10/12/24 08:46 10/12/24 08:47 Temperature Pulse Rate 124 H 124 H Respiratory Rate 16 16 Blood Pressure Pulse Oximetry 94 Oxygen Delivery Room Air Oxygen Flow Rate Intake/Output Intake/Output: Intake & Output 10/09/24 10/10/24 10/11/24 10/12/24 23:59 23:59 23:59 23:59 Intake Total 65.3 2315.0 1394.3 868.8 Output Total 3500 1350 500 Balance 65.3 -1185.0 44.3 368.8 Meds/Results Medications: Active Medications Generic Name Dose Route Start Last Admin Trade Name Freq PRN Reason Stop Dose Admin Acetaminophen 650 mg 10/11/24 04:00 10/12/24 09:45 Acetaminophen 325 Mg Tablet PO 650 mg Q6H GIANFRANCO Administration Apixaban 5 mg 10/12/24 17:00 Apixaban 5 Mg Tablet PO Q12HR [facility] Aspirin 81 mg 10/10/24 09:00 10/12/24 09:45 Aspirin 81 Mg Chewable Tablet PO 81 mg DAILY GIANFRANCO Administration Hydroxyzine HCl 25 mg 10/10/24 00:06 10/12/24 09:45 Hydroxyzine Hcl 25 Mg Tablet PO 25 mg Q6H PRN Administration Anxiety Levalbuterol HCl 1.25 mg 10/10/24 20:35 10/12/24 08:46 Levalbuterol Neb 1.25 Mg/3 Ml INHALATION Not Given Q6HRT [facility] Oxycodone HCl 5 mg 10/10/24 21:51 10/12/24 05:21 Oxycodone Hcl (*Crx) 5 Mg Tab Ir PO 5 mg Q4H PRN Administration Pain Rated 7-10 Senna 8.6 mg 10/10/24 21:00 10/11/24 22:07 Sennosides 8.6 Mg Tablet PO 8.6 mg HS GIANFRANCO Administration Simethicone 80 mg 10/10/24 20:35 10/10/24 21:42 Simethicone 80 Mg Tab.Chew PO 80 mg QID PRN Administration Flatulence, Bloating Radiology Results: ITS Impressions Chest X-Ray 10/09/24 15:08 IMPRESSION: No acute cardiopulmonary pathology. Venous Doppler Study 10/09/24 15:49 IMPRESSION: Thrombosis in the right gastrocnemius vein. Other appearances are unremarkable. Labs Labs: Laboratory Results - last 24 hr 10/12/24 03:57 WBC 7.6 RBC 4.23 L Hgb 12.0 L Hct 40.4 L MCV 95.5 MCH 28.4 MCHC 29.7 L RDW 15.3 H Plt Count 299 MPV 10.5 H Sodium 140 Potassium 3.8 Chloride 101 Carbon Dioxide 31 H Anion Gap 8 BUN 40 H Creatinine 1.20 Estim Creat Clear Calc 55 Estimated GFR 59 Glucose 100 Calcium 8.7
[2024-10-12] MEDS: METOPROLOL SUCCINATE EXT REL 50 MG TABCR PO (11:03)
[2024-10-12] MEDS: EMPAGLIFLOZIN 10 MG TABLET PO (11:03)
--- NOTE | 2024-10-12 11:24 | P.PNIM_ITS ---
Progress Note: A&P Assessment and Plan (1) Atrial fibrillation with RVR: Code(s): I48.91 - Unspecified atrial fibrillation Status: Acute Assessment and Plan: new afib with RVR plan for CONSTANTINE cardioversion today metoprolol Eliquis 10 mg BID for DVT for 7 days and then 5 mg BID IV Lasix to help reduce strain on heart echo Ef 25% cardiology team on board (2) Elevated brain natriuretic peptide (BNP) level: Code(s): R79.89 - Other specified abnormal findings of blood chemistry Status: Acute Assessment and Plan: acute combined CHF Cardiology consulted pending recommendations IV Lasix Aggressively diuresing Echocardiogram Ef 25% Lipid panel (3) Deep vein thrombosis (DVT) of right lower extremity: Qualifiers: Affected thrombotic vein of extremity: calf muscle vein Chronicity: acute Qualified Code(s): I82.461 - Acute embolism and thrombosis of right calf muscular vein Code(s): I82.401 - Acute embolism and thrombosis of unspecified deep veins of right lower extremity Status: Acute Assessment and Plan: ELiquis (4) Shortness of breath: Code(s): R06.02 - Shortness of breath Status: Acute Assessment and Plan: combination of CHF and PE D-dimer elevated, atrial fibrillation with RVR, right lower extremity DVT Patient states that he is claustrophobic, and last time he got a CT he vomited and aspirated Patient being diuresed and given therapeutic Lovenox started on Eliquis (5) Slurred speech: Code(s): R47.81 - Slurred speech Status: Acute Assessment and Plan: ?TIA Patient states that he is claustrophobic, and last time he got a CT he vomited and aspirated continue to monitor (6) Anemia: Code(s): D64.9 - Anemia, unspecified Status: Acute Assessment and Plan: No signs of acute bleeding Could be dilutional, patient is being aggressively diuresed CBC the morning Anemia workup (7) Headache: Code(s): R51.9 - Headache, unspecified Status: Acute Assessment and Plan: Tylenol (8) Transaminitis: Code(s): R74.01 - Elevation of levels of liver transaminase levels Status: Acute Assessment and Plan: CMP in the morning (9) Hyperglycemia: Code(s): R73.9 - Hyperglycemia, unspecified Status: Acute Assessment and Plan: pre diabetes Hemoglobin A1c 5.9 Subjective Date/time seen: 10/12/24 11:24 Interval history: per HPi: 79-year-old male who does not go to the doctor presents to the hospital with leg swelling and pain. Patient states that about 10 days ago he drove from [place] to [place]. He states that it proximally taken [address], and on Friday and Friday he drove about 500 miles each day. He states on Friday of this week that he noticed that his right leg kept increasing in size and was red. He also complains of difficulties breathing, and intermittent slurred speech. He states that due to the symptoms his appetite is decreased he has mostly been eating popsicles over the last 3 or 4 days. He also states that he is only able to sleep for an hour at a time. And states that he has gotten very little sleep over the last 2 days. Patient denies nausea vomiting, diarrhea fever chills. In the ED was found to have a hemoglobin of 12.9, D-dimer of 2.22, BUN of 40, creatinine of 1.24, GFR 57, glucose of 125, AST of 103 ALT of 103 alkaline phos of 136, proBNP of 4080, troponin of 0.025 and 0.024. Venous Doppler shows Thrombosis in the right gastrocnemius vein. 10/10/24 patient was seen and examined at bedside. he is complaining of leg swelling and SOb which has been getting worse for past 5 days. denies abd pain, nausea a or vomiting. R leg positive for DVT. Vq scan pending. On Cardizem drip and Lovenox. cardiology team on board. Patient was seen and examined at bedside. he is feeling better. his breathing is better. denies chest pain, abd pain, N/V. Still afib with RVR. plan fro CONSTANTINE cardioversion today. On amiodarone drip and lovenox. Echo showed LVEF 25%. started on Toprol, Aldactone and Jardiance Review of Systems Review of Systems: 12 systems were reviewed and are negativ e except for as per HPI. Exam Narrative: General: well appearing, appears stated age. HEENT: normocephalic, atraumatic. Mucous membranes moist. EOMI, PERRLA, bilateral sclera anicteric, no conjunctival injection. Neck supple without JVD, lymphadenopathy, or bruit. Respiratory: clear to ascultation bilaterally. No rales/rhonic/wheezes. Cardiovascular: irRegular rate and rhythm, normal S1-S2 upon ascultation. No murmurs, rubs, or clicks. PMI is nondisplaced, capillary refill less than 3 second. Abdomen: Soft, round, no pulsatile masses, nondistended and nontender. No rebound, no guarding. No CVA tenderness, no hepatosplenomegaly. Bowel sounds present to all four quadrants. No high pitch or tinkling sounds, resonant to percussion. Extremities: No cyanosis, clubbing, or edema present. Pulses are palpable 2/2. Bilateral lower extremity edema. Neuro: Alert and orientated x 4. PERRLA. Cranial nerves 2-12 intact without focal deficit. Skin: Warm, dry, and intact, without rash, erythema, or lesion. Psych: pleasant, cooperative, normal speech, normal affect, no hallucinations, no dysarthia Objective Data Vital Signs Vital Signs: Vital Signs - 24 hr 10/11/24 12:00 10/11/24 12:00 10/11/24 12:00 Temperature Pulse Rate 141 H 148 H 142 H Respiratory Rate 18 16 Blood Pressure 107/69 Pulse Oximetry 95 Oxygen Delivery Room Air Oxygen Flow Rate 10/11/24 14:00 10/11/24 14:00 10/11/24 14:09 Temperature Pulse Rate 138 H 138 H Respiratory Rate 16 Blood Pressure 108/47 L Pulse Oximetry Oxygen Delivery Oxygen Flow Rate 10/11/24 14:18 10/11/24 16:00 10/11/24 16:00 Temperature Pulse Rate 148 H 152 H 152 H Respiratory Rate 16 16 Blood Pressure Pulse Oximetry 95 Oxygen Delivery Room Air Oxygen Flow Rate 10/11/24 18:00 10/11/24 18:00 10/11/24 18:28 Temperature Pulse Rate 142 H 143 H 147 H Respiratory Rate 18 Blood Pressure 122/60 Pulse Oximetry Oxygen Delivery Oxygen Flow Rate 10/11/24 20:00 10/11/24 20:00 10/11/24 20:00 Temperature 98.5 F Pulse Rate 142 H 144 H Respiratory Rate 18 Blood Pressure 119/88 119/88 Pulse Oximetry 94 Oxygen Delivery Room Air Oxygen Flow Rate 10/11/24 20:00 10/11/24 20:39 10/11/24 20:50 Temperature Pulse Rate 136 H 144 H Respiratory Rate 16 Blood Pressure Pulse Oximetry 92 Oxygen Delivery Room Air Oxygen Flow Rate 10/11/24 20:50 10/11/24 22:00 10/11/24 22:00 Temperature Pulse Rate 144 H 133 H 133 H Respiratory Rate 16 Blood Pressure 104/57 L 104/57 L Pulse Oximetry Oxygen Delivery Oxygen Flow Rate 10/11/24 22:00 10/11/24 23:42 10/11/24 23:55 Temperature 98.2 F Pulse Rate 133 H 147 H Respiratory Rate 20 Blood Pressure 129/94 H Pulse Oximetry 92 Oxygen Delivery Room Air Oxygen Flow Rate 10/12/24 00:00 10/12/24 00:00 10/12/24 02:00 Temperature Pulse Rate 146 H 146 H 135 H Respiratory Rate Blood Pressure 129/94 H 113/68 Pulse Oximetry 94 Oxygen Delivery Oxygen Flow Rate 10/12/24 02:00 10/12/24 02:00 10/12/24 03:41 Temperature Pulse Rate 135 H 135 H Respiratory Rate Blood Pressure 113/68 Pulse Oximetry 96 Oxygen Delivery Nasal Cannula Oxygen Flow Rate 2 10/12/24 03:51 10/12/24 04:00 10/12/24 04:00 Temperature 98.1 F Pulse Rate 157 H 132 H 132 H Respiratory Rate 23 H Blood Pressure 132/96 H 132/96 H Pulse Oximetry 96 Oxygen Delivery Oxygen Flow Rate 10/12/24 06:00 10/12/24 06:00 10/12/24 06:00 Temperature Pulse Rate 138 H 138 H 138 H Respiratory Rate 20 Blood Pressure 102/84 102/84 Pulse Oximetry 99 Oxygen Delivery Oxygen Flow Rate 10/12/24 07:32 10/12/24 07:32 10/12/24 07:34 Temperature 98.7 F Pulse Rate 138 H 138 H 138 H Respiratory Rate 20 Blood Pressure 116/85 116/85 116/85 Pulse Oximetry 98 Oxygen Delivery Oxygen Flow Rate 10/12/24 07:34 10/12/24 08:46 10/12/24 08:47 Temperature Pulse Rate 124 H 124 H Respiratory Rate 16 16 Blood Pressure Pulse Oximetry 98 94 Oxygen Delivery Room Air Room Air Oxygen Flow Rate 10/12/24 10:23 Temperature Pulse Rate 144 H Respiratory Rate Blood Pressure 135/85 Pulse Oximetry Oxygen Delivery Oxygen Flow Rate Intake/Output Intake/Output: Intake & Output 10/09/24 10/10/24 10/11/24 10/12/24 23:59 23:59 23:59 23:59 Intake Total 65.3 2315.0 1394.3 868.8 Output Total 3500 1350 500 Balance 65.3 -1185.0 44.3 368.8 Meds/Results Medications: Active Medications Generic Name Dose Route Start Last Admin Trade Name Freq PRN Reason Stop Dose Admin Acetaminophen 650 mg 10/11/24 04:00 10/12/24 09:45 Acetaminophen 325 Mg Tablet PO 650 mg Q6H GIANFRANCO Administration Apixaban 5 mg 10/12/24 17:00 Apixaban 5 Mg Tablet PO Q12HR GIANFRANCO Aspirin 81 mg 10/10/24 09:00 10/12/24 09:45 Aspirin 81 Mg Chewable Tablet PO 81 mg DAILY GIANFRANCO Administration Empagliflozin 10 mg 10/12/24 09:50 10/12/24 11:03 Empagliflozin 10 Mg Tablet PO 10 mg DAILY GIANFRANCO Administration Hydroxyzine HCl 25 mg 10/10/24 00:06 10/12/24 09:45 Hydroxyzine Hcl 25 Mg Tablet PO 25 mg Q6H PRN Administration Anxiety Levalbuterol HCl 1.25 mg 10/10/24 20:35 10/12/24 08:46 Levalbuterol Neb 1.25 Mg/3 Ml INHALATION Not Given Q6HRT [facility] Metoprolol Succinate 50 mg 10/12/24 09:50 10/12/24 11:03 Metoprolol Succinate Ext Rel 50 Mg Tabcr PO 50 mg QAM [facility] Administration Oxycodone HCl 5 mg 10/10/24 21:51 10/12/24 05:21 Oxycodone Hcl (*Crx) 5 Mg Tab Ir PO 5 mg Q4H PRN Administration Pain Rated 7-10 Senna 8.6 mg 10/10/24 21:00 10/11/24 22:07 Sennosides 8.6 Mg Tablet PO 8.6 mg HS [facility] Administration Simethicone 80 mg 10/10/24 20:35 10/10/24 21:42 Simethicone 80 Mg Tab.Chew PO 80 mg QID PRN Administration Flatulence, Bloating Spironolactone 25 mg 10/13/24 09:00 Spironolactone 25 Mg Tablet PO QAM [facility] Radiology Results: ITS Impressions Chest X-Ray 10/09/24 15:08 IMPRESSION: No acute cardiopulmonary pathology. Venous Doppler Study 10/09/24 15:49 IMPRESSION: Thrombosis in the right gastrocnemius vein. Other appearances are unremarkable. Labs Labs: Laboratory Results - last 24 hr 10/12/24 03:57 WBC 7.6 RBC 4.23 L Hgb 12.0 L Hct 40.4 L MCV 95.5 MCH 28.4 MCHC 29.7 L RDW 15.3 H Plt Count 299 MPV 10.5 H Sodium 140 Potassium 3.8 Chloride 101 Carbon Dioxide 31 H Anion Gap 8 BUN 40 H Creatinine 1.20 Estim Creat Clear Calc 55 Estimated GFR 59 Glucose 100 Calcium 8.7 Quality VTE Prophylaxis VTE prophylaxis: pharmacologic ordered
--- NOTE | 2024-10-12 13:00 | ECG_ITS ---
Test Date: 2024-10-12 15:09:52 Measurements Intervals [place] Rate: 72 P: 52 CO: 158 QRS: 100 QRSD: 98 T: 114 QT: 421 QTc: 461 Interpretive Statements SINUS RHYTHM WITH OCCASIONAL ECTOPIC PREMATURE COMPLEXES BORDERLINE RIGHT AXIS DEVIATION [QRS AXIS > 90] NONSPECIFIC T-WAVE ABNORMALITY ABNORMAL ECG Compared to ECG 10/09/2024 22:16:24 Atrial fibrillation no longer present T-wave abnormality still present Electronically Signed On 10-13-2024 08:18:01 CDT by Luigi Birmingham M.D.
--- NOTE | 2024-10-12 14:00 | ECG_ITS ---
Test Date: 2012-05-26 12:02:20 Measurements Intervals [place] Rate: 131 P: 0 MN: 0 QRS: 102 QRSD: 92 T: 94 QT: 311 QTc: 461 Interpretive Statements ATRIAL FIBRILLATION WITH RAPID VENTRICULAR RESPONSE MARKED RIGHT AXIS DEVIATION [QRS AXIS > 100] NONSPECIFIC T-WAVE ABNORMALITY ABNORMAL ECG No previous ECG available for comparison Electronically Signed On 10-13-2024 13:10:40 CDT by Luigi Birmingham M.D.
[2024-10-12] MEDS: PERFLUTREN LIPID MICROSPHERES 1.5 ML VIAL DILUTED TO 10 ML TOTAL VOLUME IV PUSH (14:35)
--- NOTE | 2024-10-12 14:41 | P.PCNTEECA_ITS ---
CONSTANTINE with Cardioversion Date of procedure: 10/12/24 Procedure Type: Date Of Procedure: 10/12/2024 Brief History Of Present Illness: Patient is a 79 year old male referred for CONSTANTINE-guided DCCV for atrial fibrillation with RVR. Indication: Atrial fibrillation with RVR Procedure In Detail: After verbal and written informed consent was obtained, the patient risks, benefits, and alternatives explained in detail. The patient agreed to proceed with the plan of care as outlined above.?The patient was evaluated at bedside.?The patient was then placed in the appropriate 30 to 45 degree angle supine position at a slight left lateral decubitus position.?Patient was monitored throughout the study with telemetry, oxygen saturation, end-tidal CO2 monitoring, blood pressure, heart rate, and respirations.?The posterior hypopharynx was then locally anesthetized using repeated administration of Hurricaine spray. After local anesthetic of the posterior hypopharynx was achieved and the oral bite block placed, sedation was administered by the Anesthesia team.?After confirmation of adequate sedation, the transesophageal echocardiogram probe was advanced through the oral bite block into the posterior hypopharynx and into the esophagus easily and without complication.?Multiple, multiplanar echocardiographic images were obtained in multiple standard re- projections.?Definity was administered for better visualization.?At the concl usion of the study, the transesophageal echocardiogram probe was removed easily and without complication. The patient tolerated the procedure well without difficulty.? Moderate Sedation / Anesthesia Administration: Sedation per the Anesthesia team. FINDINGS: LEFT ATRIAL APPENDAGE: Anatomically normal structure with prominent pectinate muscles. Smoke noted in the left atrium/left atrial appendage. No thrombus or vegetation identified. CARDIOVERSION: Synchronized electrical cardioversion was performed with 1 shock at 250 joules, which successfully converted patient to sinus rhythm. CONCLUSION: Successful CONSTANTINE-guided synchronized electrical cardioversion with conversion to sinus rhythm. Complications: None
--- NOTE | 2024-10-12 14:41 | WPDHPUPDATE1 ---
History and Physical Update Update Date/Time: 10/12/24 14:41 History and Physical has been reviewed, including an updated exam of the patient. There are NO changes in the patient's condition. Risks, benefits, and alternatives have been discussed and questions answered. Patient agrees to proceed with procedure.
--- NOTE | 2024-10-12 15:15 | IVDEFINITY ---
Prior to administration of IV Definity the patient was educated on the risks and benefits of the imaging enhancing agent including potential adverse side effects. The patient verbalized understanding. Allergies were verified. No exclusion criteria were identified and at least one of the following inclusion criteria were met: 1) physician request, 2) patient technically difficult to image (per the [place] [employer] guidelines of two or more segments not discernable within the apical view), or 3) questionable left ventricular function. ?
[2024-10-12] MEDS: SENNOSIDES 8.6 MG TABLET PO (21:24)
[2024-10-12] MEDS: APIXABAN 5 MG TABLET 10 MG PO (21:24)
[2024-10-13] VITALS (18 sets, daily range): BP systolic 100–126; BP diastolic 64–77; PULSE 68–80; RESP 16–20; TEMP 35.8–37; O2SAT 92–100
[2024-10-13] MEDS: LEVALBUTEROL NEB 1.25 MG/3 ML INHALATION ×3 (02:50→14:39)
[2024-10-13] MEDS: hydrOXYzine HCL 25 MG TABLET PO ×2 (04:51→13:01)
[2024-10-13] MEDS: ACETAMINOPHEN 325 MG TABLET 650 MG PO (04:51)
[2024-10-13] MEDS: ASPIRIN 81 MG CHEWABLE TABLET PO (08:35)
[2024-10-13] MEDS: METOPROLOL SUCCINATE EXT REL 50 MG TABCR PO (08:35)
[2024-10-13] MEDS: SPIRONOLACTONE 25 MG TABLET PO (08:35)
[2024-10-13] MEDS: EMPAGLIFLOZIN 10 MG TABLET PO (08:35)
[2024-10-13] MEDS: APIXABAN 5 MG TABLET 10 MG PO (08:36)
--- NOTE | 2024-10-13 14:12 | P.PNCA_ITS ---
Progress Note: A&P Assessment and Plan (1) Atrial fibrillation with RVR: Code(s): I48.91 - Unspecified atrial fibrillation Status: Acute Assessment and Plan: Status post alo guided cardioversion yesterday. Remains in sinus rhythm. On anticoagulation. Continue Eliquis but stop aspirin. Does not need Eliquis plus aspirin at this point (2) Hypertension: Code(s): I10 - Essential (primary) hypertension Status: Acute Assessment and Plan: Blood pressure is at goal (3) Deep vein thrombosis (DVT) of right lower extremity: Qualifiers: Affected thrombotic vein of extremity: calf muscle vein Chronicity: acute Qualified Code(s): I82.461 - Acute embolism and thrombosis of right calf muscular vein Code(s): I82.401 - Acute embolism and thrombosis of unspecified deep veins of right lower extremity Status: Acute Assessment and Plan: On anticoagulation (4) Acute systolic (congestive) heart failure: Code(s): I50.21 - Acute systolic (congestive) heart failure Status: Acute Assessment and Plan: Better compensated. (5) Cardiomyopathy: Code(s): I42.9 - Cardiomyopathy, unspecified Status: Acute Assessment and Plan: May be related to AFib with RVR but ischemic workup is still needed. I did talk about a LifeVest. I explain 2 him the rationale and his risk of sudden cardiac given the fact his ejection fraction was 35%. He verbalized understanding but refuses LifeVest. Continue Toprol, Jardiance, spironolactone for treatment of cardiomyopathy and heart failure. Plan 1. Atrial fibrillation with RVR 2. 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 DVT 4. Hypertension 5. Hyperlipidemia 6. COPD PLAN: -cardioverted yesterday and state in sinus rhythm -on Eliquis -For HFrEF, will start Toprol, Jardiance, Spironolactone. Uptitrate heart failure GDMT as tolerated. Ischemic evaluation can be done as outpatient. Re- evaluate LVEF as an outpatient once he has maintained sinus rhythm. Subjective Date/time seen: 10/13/24 14:12 Interval history: Reason for visit: Atrial fibrillation with RVR HPI: Patient is a 79-year-old male who is visiting his sister who lives in [place]. He lives in [place]. He was driving from [place] to this area and in route, he started to have some shortness of breath and leg swelling. States that over the past 7 in 9 days it was progressively worsening. It started in his feet and then progressed up to even bloating and swelling in his abdomen. He did have chest pain which he describes as a pounding sensation abou t a week ago. Whenever he arrived in [place], he also had some chest pain again which he describes as a pounding. He has had some worsening shortness of breath, paroxysmal nocturnal dyspnea and orthopnea. No syncope or presyncope. Due to ongoing symptoms, he decided to come to the hospital yesterday at the insistence of his sister. He is found to be in atrial fibrillation with rapid ventricular response. He does have a right gastrocnemius DVT. CTA was ordered to rule out for pulmonary embolism but he is claustrophobic. V/Q scan is pending. He was started on diltiazem drip for his atrial fibrillation but is still and rapid ventricular response. Date of service 10/11: Patient states that his heart pain has significantly subsided. His shortness of breath has significantly subsided as well. Date of service 10/12: Remains in AFIB with RVR. Feeling okay. Date of service 10/13/2024: In sinus rhythm. On anticoagulation. Feels okay and denies any chest pain or shortness of breath. Breathing is much better Review of Systems Review of Systems: All systems reviewed & are unremarkable except as noted in HPI and below Constitutional: Constitutional: Denies body ache(s) and Denies excessive sweating Eyes: Eyes: Denies blurry vision ENT: Reports Normal hearing present Cardiovascular: Cardiovascular: Reports as per HPI, Reports chest pain, Reports leg edema, Reports lightheadedness, Reports palpitations and Reports dyspnea on exertion Respiratory: Respiratory: Reports as per HPI and Reports dyspnea on exertion Gastrointestinal: Gastrointestinal: Denies abdominal pain and Reports bloating Genitourinary: Genitourinary: Denies hematuria Musculoskeletal: Musculoskeletal: Denies back pain Integumentary/Breasts: Skin/Breast: Denies skin pain Neurologic: Reports Normal hearing present and Denies Abnormal speech present Psychiatric: Psychiatric: Denies anxiety Endocrine: Endocrine: Denies excessive sweating and Reports palpitations Hematologic/Lymphatic: Hematologic/Lymphatic: Denies easy bleeding Allergic/Immunologic: Allergic/Immunologic: Denies GI upset with certain foods Exam Narrative: Alert oriented appears stated age. Const: General: comfortable and no acute distress HENMT: Face/Nose/Sinus: Normal nares present Mouth: Yes moist mucous membranes Other: Skin cancer left side of his face Eyes: General: appearance normal, both eyes and all related structures Sclera: sclerae normal Neck: Neck: supple and no JVD Chest: Other: No reproducible chest wall pain to palpation Resp: Effort & Inspection: normal respiratory effort Auscultation: clear to auscultation bilaterally Cardio: Rate: regular rate Rhythm: regular rhythm Heart sounds: no murmurs GI: Inspection: non-distended GI Palp: Yes Soft to palpation Auscultation: normal bowel sounds Skin: General skin exam: normal color Other: Wounds on face and near nose from his melanoma Neuro: Cranial nerves: Yes Normal hearing present Speech: normal speech and No Abnormal speech present Sensory Exam: normal sensation Extrem: General: edema Other: Swollen legs Psych: Mental Status: mental status grossly normal Affect: normal affect Objective Data Vital Signs Vital Signs: Vital Signs - 24 hr 10/12/24 15:15 10/12/24 15:22 10/12/24 16:00 Temperature Pulse Rate 70 71 Respiratory Rate 20 18 Blood Pressure 102/70 102/65 Pulse Oximetry 95 95 94 Oxygen Delivery Nasal Cannula Nasal Cannula Nasal Cannula Oxygen Flow Rate 2 2 2 10/12/24 16:00 10/12/24 16:19 10/12/24 18:00 Temperature 36.6 C Pulse Rate 82 83 75 Respiratory Rate 20 Blood Pressure 121/75 Pulse Oximetry 99 Oxygen Delivery Oxygen Flow Rate 10/12/24 18:11 10/12/24 18:11 10/12/24 18:21 Temperature Pulse Rate 106 H 110 H Respiratory Rate 18 18 Blood Pressure Pulse Oximetry 93 Oxygen Delivery Nasal Cannula Oxygen Flow Rate 2 10/12/24 19:47 10/12/24 19:59 10/12/24 20:00 Temperature 36.6 C Pulse Rate 81 75 Respiratory Rate 20 Blood Pressure 123/78 Pulse Oximetry 100 100 Oxygen Delivery Nasal Cannula Oxygen Flow Rate 2 10/12/24 22:00 10/13/24 00:00 10/13/24 00:00 Temperature 36.8 C Pulse Rate 79 77 72 Respiratory Rate 20 Blood Pressure 111/77 Pulse Oximetry 100 Oxygen Delivery Oxygen Flow Rate 10/13/24 00:00 10/13/24 02:00 10/13/24 02:52 Temperature Pulse Rate 71 80 Respiratory Rate 18 Blood Pressure Pulse Oximetry 100 Oxygen Delivery Nasal Cannula Oxygen Flow Rate 2 10/13/24 03:00 10/13/24 04:00 10/13/24 04:00 Temperature Pulse Rate 79 73 Respiratory Rate 18 Blood Pressure Pulse Oximetry 99 Oxygen Delivery Room Air Oxygen Flow Rate 10/13/24 04:25 10/13/24 06:00 10/13/24 08:00 Temperature 37.0 C Pulse Rate 71 68 Respiratory Rate 18 Blood Pressure 106/64 Pulse Oximetry 99 Oxygen Delivery Room Air Oxygen Flow Rate 10/13/24 08:00 10/13/24 08:04 10/13/24 09:57 Temperature 36.7 C Pulse Rate 71 76 71 Respiratory Rate 20 18 Blood Pressure 100/74 Pulse Oximetry 99 Oxygen Delivery Oxygen Flow Rate 10/13/24 09:58 10/13/24 10:00 10/13/24 11:44 Temperature 35.8 C L Pulse Rate 71 76 77 Respiratory Rate 16 20 Blood Pressure 126/67 Pulse Oximetry 94 98 Oxygen Delivery Room Air Oxygen Flow Rate 10/13/24 12:00 10/13/24 12:00 Temperature Pulse Rate 74 Respiratory Rate Blood Pressure Pulse Oximetry Oxygen Delivery Room Air Oxygen Flow Rate Intake/Output Intake/Output: Intake & Output 10/10/24 10/11/24 10/12/24 10/13/24 23:59 23:59 23:59 23:59 Intake Total 2315.0 1394.3 1321.3 240 Output Total 3500 1350 500 400 Balance -1185.0 44.3 821.3 -160 Meds/Results Medications: Active Medications Generic Name Dose Route Start Last Admin Trade Name Freq PRN Reason Stop Dose Admin Acetaminophen 650 mg 10/11/24 04:00 10/13/24 12:00 Acetaminophen 325 Mg Tablet PO Not Given Q6H [facility] Apixaban 10 mg 10/12/24 21:00 10/13/24 08:36 Apixaban 5 Mg Tablet PO 10 mg Q12HR GIANFRANCO Administration Aspirin 81 mg 10/10/24 09:00 10/13/24 08:35 Aspirin 81 Mg Chewable Tablet PO 81 mg DAILY GIANFRANCO Administration Empagliflozin 10 mg 10/12/24 09:50 10/13/24 08:35 Empagliflozin 10 Mg Tablet PO 10 mg DAILY GIANFRANCO Administration Hydroxyzine HCl 25 mg 10/10/24 00:06 10/13/24 13:01 Hydroxyzine Hcl 25 Mg Tablet PO 25 mg Q6H PRN Administration Anxiety Levalbuterol HCl 1.25 mg 10/10/24 20:35 10/13/24 09:55 Levalbuterol Neb 1.25 Mg/3 Ml INHALATION 1.25 mg Q6HRT GIANFRANCO Administration Metoprolol Succinate 50 mg 10/12/24 09:50 10/13/24 08:35 Metoprolol Succinate Ext Rel 50 Mg Tabcr PO 50 mg QAM GIANFRANCO Administration Oxycodone HCl 5 mg 10/10/24 21:51 10/12/24 05:21 Oxycodone Hcl (*Crx) 5 Mg Tab Ir PO 5 mg Q4H PRN Administration Pain Rated 7-10 Senna 8.6 mg 10/10/24 21:00 10/12/24 21:24 Sennosides 8.6 Mg Tablet PO 8.6 mg HS GIANFRANCO Administration Simethicone 80 mg 10/10/24 20:35 10/10/24 21:42 Simethicone 80 Mg Tab.Chew PO 80 mg QID PRN Administration Flatulence, Bloating Spironolactone 25 mg 10/13/24 09:00 10/13/24 08:35 Spironolactone 25 Mg Tablet PO 25 mg QAM GIANFRANCO Administration Radiology Results: ITS Impressions Chest X-Ray 10/09/24 15:08 IMPRESSION: No acute cardiopulmonary pathology. Venous Doppler Study 10/09/24 15:49 IMPRESSION: Thrombosis in the right gastrocnemius vein. Other appearances are unremarkable.
--- NOTE | 2024-10-13 15:50 | P.DS_ITS ---
DS: Admitting Diagnosis Discharge Date 10/13/24 Admitting Diagnosis Leg swelling DS: Discharge Diagnosis Discharge Diagnosis (1) Atrial fibrillation with RVR: Code(s): I48.91 - Unspecified atrial fibrillation Status: Acute Assessment and Plan: new afib with RVR plan for CONSTANTINE cardioversion today metoprolol Eliquis 10 mg BID for DVT for 7 days and then 5 mg BID IV Lasix to help reduce strain on heart echo Ef 25% cardiology team on board (2) Elevated brain natriuretic peptide (BNP) level: Code(s): R79.89 - Other specified abnormal findings of blood chemistry Status: Acute Assessment and Plan: acute combined CHF Cardiology consulted pending recommendations IV Lasix Aggressively diuresing Echocardiogram Ef 25% Lipid panel L (3) Deep vein thrombosis (DVT) of right lower extremity: Qualifiers: Affected thrombotic vein of extremity: calf muscle vein Chronicity: acute Qualified Code(s): I82.461 - Acute embolism and thrombosis of right calf muscular vein Code(s): I82.401 - Acute embolism and thrombosis of unspecified deep veins of right lower extremity Status: Acute Assessment and Plan: ELiquis (4) Shortness of breath: Code(s): R06.02 - Shortness of breath Status: Acute Assessment and Plan: combination of CHF and PE D-dimer elevated, atrial fibrillation with RVR, right lower extremity DVT Patient states that he is claustrophobic, and last time he got a CT he vomited and aspirated Patient being diuresed and given therapeutic Lovenox started on Eliquis (5) Slurred speech: Code(s): R47.81 - Slurred speech Status: Acute Assessment and Plan: ?TIA Patient states that he is claustrophobic, and last time he got a CT he vomited and aspirated continue to monitor (6) Anemia: Code(s): D64.9 - Anemia, unspecified Status: Acute Assessment and Plan: No signs of acute bleeding Could be dilutional, patient is being aggressively diuresed CBC the morning Anemia workup (7) Headache: Code(s): R51.9 - Headache, unspecified Status: Acute Assessment and Plan: Tylenol (8) Transaminitis: Code(s): R74.01 - Elevation of levels of liver transaminase levels Status: Acute Assessment and Plan: CMP in the morning (9) Hyperglycemia: Code(s): R73.9 - Hyperglycemia, unspecified Status: Acute Assessment and Plan: pre diabetes Hemoglobin A1c 5.9 DS: Summary Hospital Course Hospital Course: 79 y/o male presented with new onset atrial fibrillation was seen by prison keeper and had CONSTANTINE guided cardioversion and was successful and remains in NSR. now on Eliquis for anticoagulation, patient is found to cardiomyopathy and will need ischemic evaluation down the road, patient with EF 35%, prison keeper recommended LIVEVEST however patient refused it despite risk of sudden cardiac . patient is clinically stable, will discharge patient home today. Time Spent with Patient Time attestation: Total time spent providing and/or coordinating discharge services: Discharge Plan Discharge Attending physician on discharge: Pérez Hernandez Consulting providers: Luigi Birmingham; Ramses Sloan; Onofre Pitts; Karoline Lezama; Pérez Hernandez; Mika Scott; Erin Davis; Hung Holbrook Discharging Clinician: Wes Turk Patient Disposition: Home Activity: as tolerated Diet: heart healthy Discharge Instructions: patient to follow discharge care instruction from his prison keeper and follow up as scheduled, patient to follow with his primary care as soon as possible, patient is instructed if any symptoms redevelop to go to nearest ER Patient Instructions: Antibiotic Form, A-fib (Atrial Fibrillation) (DC), Ca rdioversion (DC) Patient Language: [place]ralt[place] Stand Alone Forms: General Discharge Information Follow-up/Referrals: Luigi Birmingham MD [Physician] - PHYSICIAN NOT ON STAFF,NONSTAFF [Primary Care Provider] - Discharge Medications: New sennosides [Senokot] 8.6 mg Tablet 8.6 mg PO HS Qty: 30 0RF metoprolol succinate 50 mg Tablet Extended Release 24 Hr 50 mg PO QAM Qty: 30 0RF spironolactone 25 mg Tablet 25 mg PO QAM Qty: 30 0RF Eliquis 5 mg Tablet 10 mg PO Q12HR Qty: 28 0RF Jardiance 10 mg Tablet 10 mg PO DAILY Qty: 30 0RF Eliquis 5 mg tablet 5 mg PO BID Qty: 60 0RF hydroxyzine HCl 25 mg Tablet 25 mg PO Q6H PRN (Reason: Anxiety) Qty: 20 0RF Discontinued aspirin [Keegan Chewable Aspirin] 81 mg tablet,chewable 81 mg PO DAILY Date of admission: 10/10/24 08:42 Primary Care Provider: PHYSICIAN NOT ON STAFF,NONSTAFF Admitting Provider: Sarah Acuna Attending physician on admission: Wes Turk Condition: Stable
== END 2024-10-13 17:28 | disposition home or self-care (01) | DRG 308 ==
LOC: ANHED 17:39 → ANHIMU 18:27
PROVIDERS: Internal Medicine; Nurse Practitioner Gerontology; Admitting Provider Internal Medicine; Emergency Provider Physician Assistant; Visit Provider Family Medicine
PROC: 5A2204Z Restoration of Cardiac Rhythm, Single (ICD-10-PCS; principal; 2024-10-12 14:00)
PROC: 5A2204Z Restoration of Cardiac Rhythm, Single (ICD-10-PCS; CPT 93312; 2024-10-12 14:00)
DX: I48.91 Unspecified atrial fibrillation (principal); I50.21 Acute systolic (congestive) heart failure; I11.0 Hypertensive heart disease with heart failure; I42.9 Cardiomyopathy, unspecified; D64.9 Anemia, unspecified; R47.81 Slurred speech; R51.9 Headache, unspecified; R73.9 Hyperglycemia, unspecified; I82.461 Acute embolism and thrombosis of right calf muscular vein; F40.240 Claustrophobia; E78.5 Hyperlipidemia, unspecified; J44.9 Chronic obstructive pulmonary disease, unspecified; Z85.828 Personal history of other malignant neoplasm of skin; Z87.891 Personal history of nicotine dependence; Z79.01 Long term (current) use of anticoagulants
CPT/HCPCS: 36415; 71046; 80048; 80053; 80061; 81003; 83036; 83690; 83735; 83880; 84100; 84443; 84484; 85025; 85027; 85380; 85610; 85730; 92960; 93005; 93970; 94640; 96366; 96374; 96375; 96376; 99285; A9270; C8925; C8929; G0378; J0282; J1650; J1938; J2250; J2371; J2704; J3010; J7040; Q9957